=== PATIENT | male | born 1960 | race Caucasian/White ===

== ENCOUNTER 2025-07-30 10:41 | Inpatient (IN) | payer OTHER, SELFPAY ==
[2025-07-30] VITALS (11 sets, daily range): BP systolic 93–129; BP diastolic 61–86; PULSE 2–87; BMI 35.7; BMI 36.4
--- NOTE | 2025-07-30 08:15 | ED.GENMED ---
History of Present Illness
General
Chief Complaint: Change in Mental Status
Source: patient and ambulance crew
Exam Limitations: clinical condition
Time Seen by Provider: 07/30/25 08:14
Nursing documentation reviewed up to this point in time: agreed with
History of Present Illness
History of Present Illness:
Patient presents to ED from senior care secondary to mental status changes noted over the past 2 to 3 days. Per paramedics, patient was found to be mild hypoxic, requiring supplemental oxygen. Patient has been arousable to external stimuli, but
not following any verbal commands. Upon arrival, patient is somnolent, but arousable to physical stimuli, but does not offer any additional information at this time. Patient is found to be febrile. Patient does appear to have chronic Zamorano
catheter in place, with cloudy urine in Zamorano bag.
Review of Systems
Review of Systems
Allergies reviewed?: Yes
Unable to obtain full review of systems at this time due to: due to acuity
All Other Systems: Not applicable
Phy Exam
Physical Exam
Physical Exam:
Physical Exam
General: moderate distress, acutely ill. febrile.
Head: nc/at. eomi
Neck: supple. no jvd.
Heart: s1/s2 regular rate and rhythm
Lungs: mild respiratory distress. rhonchi bilaterally
Abdomen: normal bowel sounds. not tender.
Neuro: somnolent but responds to physical stimuli.
Skin: no rash
Extremities: LE nonpitting edema.
Sepsis
Sepsis Screening
Sepsis Assessment: Sepsis
Sepsis Screen
Sepsis Screen: Sepsis
Date: 08/01/25
Time: 21:14
Course
Orders/Labs/Results
Orders:
Orders
07/30/25
Electrocardiogram (*1) Stat
Reason for Study: Chest Pain
Comment: already done
07/30/25 08:13
Catheter [Zamorano Placement- Treatment] ONCE
Reason for insertion: Acute Retention
07/30/25 08:15
0.9% Sodium Chloride 1000 ml [Nss] 1,000 ml IV BOLUS
Acetaminophen [Tylenol/Feverall] 650 mg RECTAL NOW STA
07/30/25 08:16
COVID-19 Antigen Urgent
Source: Nasal Swab
Complete Blood Count/With Diff Urgent
Comprehensive Metabolic Panel Urgent
Lactic Acid Urgent
Magnesium Urgent
NT-proBNP Urgent
Osmolality, Random Urine Urgent
Date Specimen was Collected: 07/30/25
Time Specimen was Collected: 08:12
Comment: ADD ON
Troponin I Urgent
Urinalysis Reflex To Culture Urgent
Date Specimen was Collected: 07/30/25
Time Specimen was Collected: 08:12
Urine Microscopic Reflex Cult Urgent
Urine Sodium Urgent
Date Specimen was Collected: 07/30/25
Time Specimen was Collected: 08:12
Comment: ADD ON
Blood Culture Urgent
JUSTINE Source: Blood/Venous
Specimen Description:
Date Specimen was Collected: 07/30/25
Time Specimen was Collected: 08:12
Influenza A+B Rapid Molecular Urgent
JUSTINE Source: Nasal Swab
Specimen Description:
Date Specimen was Collected: 07/30/25
Time Specimen was Collected: 08:12
Urine Culture Urgent
JUSTINE Source: U
Specimen Description:
Date Specimen was Collected: 07/30/25
Time Specimen was Collected: 08:12
07/30/25 08:18
Acetaminophen 1000MG/100Ml [Ofirmev] 1,000 mg in 100 ml IV ONCE
Acetaminophen IV Indication:: ED Narcotic Naive Pt-ONCE
07/30/25 08:29
CR Chest Portable - 1 View Urgent
Comment:
Reason For Exam: hypoxia
Reason Study Needs to be Portable: Patient Unstable
07/30/25 09:05
0.9% Sodium Chloride 500 ml [Nss] 500 ml IV BOLUS
Ipratropium/Albuterol Sulfate [Duoneb] 3 ml INH R NOW STA
Piperacillin/Tazo 3.375 Gram [Zosyn] 3.375 gram in 50 ml IV NOW
07/30/25 09:22
Hepatitis B Surface Antigen Urgent
Comment: ADD ON
[place] Urgent
Blood Culture Urgent
JUSTINE Source: Blood/Venous
Specimen Description:
07/30/25 09:32
Kidney & Bladder US [US Renal With Bladder] Urgent
Comment:
Reason For Exam: MONET
07/30/25 09:[address] [CT Head W/o Iv Contrast] Urgent
Comment:
Reason For Exam: MS change
07/30/25 10:00
Dextrose 5%/Water 1000 ml [D5w] 1,000 ml IV 100 mls/hr
07/30/25 10:24
Admit/Transfer Patient As Directed
Co-Sign Provider:
Level of Care: Inpatient admission
Assign to:: Telemetry
Physician / Group: Elsy
Diagnosis: MS change
Reason for Telemetry: Other
Other Reason for Telemetry: electrolytes
Date to Stop Telemetry: 08/01/25
Time to Stop Telemetry: 11:00
Reason for Hospitalization: MS change , Monet
Expected length of stay greater than two midnights?: Yes
ELOS- Estimated Length of Stay in days: 3
I certify the patient meets the requirements for IP care: Yes
PRN Pain Medication Management As Directed
May give lesser potent ordered pain med per pt: Yes
preference::
Protocol:: Medication orders for pain may be administered in a
manner that supports deferring to patient preference
when the pt is:
- Requesting an ordered lesser potent pain medication.
Least to most potent pain medications are defined
as: acetaminophen < NSAID < tramadol < opioids
(morphine, oxycodone, hydromorphone).
- Requesting a lesser dose of the same medication IF
ORDERED.
- Requesting a less intrusive route of administration
if both routes are prescribed by the provider (PO <
IV).
07/30/25 10:25
Code Status As Directed
Resuscitation Status: Full Code
07/30/25 11:38
Activity As Directed
Activity Level: Encourage Progressive Amb
Notify MD As Directed
Notify physician if: Bridge Admission orders placed.
Notify attending physician:
-- upon arrival to unit
OR
-- when patient is identified as an ED hold
Pneumatic Compression Sleeves As Directed
Type: Knee high
Vital Signs As Directed
Frequency: Per unit guidelines
O2 Therapy [RESP] Routine
Titrate/Wean O2 to maintain O2 sat greater than (%): 92
DX Deep Vein Thrombosis Video Routine
07/30/25 16:51
BMP [Basic Metabolic Panel] Q4H
07/30/25 20:00
BMP [Basic Metabolic Panel] Q4H
08/01/25 11:00
DC Protocol for Telemetry ONCE
Abnormal Lab Results
07/30/25 07/30/25
08:16 09:22
WBC 13.0 H 10^3/uL
(4.8-10.8)
Hct 52.8 H %
(39.0-52.0)
MCV 101.5 H fL
(80.0-94.0)
MCHC 29.4 L g/dL
(33.0-37.0)
RDW 16.8 H %
(11.5-14.5)
Abs Immat Gran (auto) 0.1 H 10^3/uL
(0-0.05)
Absolute Neuts (auto) 10.0 H 10^3/uL
(1.4-6.5)
Absolute Monos (auto) 1.2 H 10^3/uL
(0.1-0.6)
Immature Gran % 0.7 H %
(0-0.5)
Neutrophils % 76.8 H %
(42.2-75.2)
Lymphocytes % 12.0 L %
(20.5-51.1)
Sodium 156 H mmol/L
(135-145)
Chloride 115 H mmol/L
(98-107)
BUN 70 H mg/dl
(9-20)
Creatinine 5.4 H* mg/dL
(0.7-1.3)
Glucose 148 H mg/dl
(70-99)
Calcium 10.7 H mg/dl
(8.4-10.2)
Magnesium 3.0 H mg/dl
(1.6-2.3)
Troponin I 0.051 H* ng/ml
Total Protein 8.5 H g/dl
(6.3-8.2)
Urine Ketones 1+ A
(Negative)
Ur Occult Blood Reflex 4+ A
(Negative)
Urine Nitrite (Reflex) Positive A
(Negative)
Urine Bilirubin 2+ A
(Negative)
Leukocyte Esterase Rfl 2+ A
(Negative)
Urine RBC 80-90 A /HPF
(0-2)
Urine Bacteria (Reflex) Moderate A
(Negative)
Urine Albumin (Reflex) 3+ A
(Neg - Trace)
[place] 2.1 H* mmol/L
(0.6-1.2)
07/30/25 08:16
07/30/25 08:16
Vital Signs
Initial and Last Documented VS:
Initial Vital Signs
Temp Pulse Resp BP Pulse Ox
102.9 F H 101 31 128/77 96
07/30/25 08:10 07/30/25 08:10 07/30/25 08:10 07/30/25 08:10 07/30/25 08:10
Last Documented Vital Signs
Temp Pulse Resp BP Pulse Ox
99.6 F 78 16 152/86 96
08/01/25 16:20 08/01/25 20:18 08/01/25 17:56 08/01/25 20:18 08/01/25 16:20
MDM/Problems Addressed
MDM/Problems Addressed:
History, exam, blood work, along with urinalysis, consistent with sepsis, likely secondary to UTI. No other focal source of infection noted, including chest x-ray. Patient's initial somnolence, improving during treatment with Tylenol and IV
fluids. Blood pressure remained stable. Antibiotics ordered. Blood culture pending. Urine culture pending.
Zamorano catheter exchanged in ED.
[place] level noted - hospitalist team aware.
Discussed with nurse practitioner at [facility] ([facility]) -creatinine level from 2 days ago was 1.93. During morning rounds, patient had been somnolent, but arousable and answering questions intermittently. Patient was recently
admitted at senior care from inpatient psychiatric facility, where he was treated for suicidal ideation. Patient does not have a history of chronic Zamorano catheter, but was placed at senior care secondary to urinary difficulties 2 days ago.
*Pulse Oximetry
Patient hypoxic: no
*Critical Care Note
Total Time (30-74mins, 75-104mins- exclusive of procedures): Not Applicable
ED Attending Note
-
Portions of this chart may have been created with voice recognition software.� Occasional wrong word or��sound alike� substitutions may have occurred due to the inherent limitations of voice recognition software.
Discharge Plan
Departure
Patient Disposition: Admit
Date of Disposition: 07/30/25
Time of Disposition: 09:33
Admit to: IMU
Presentation/result/management discussed w/ accepting MD/DO: Hospitalist
Discharge Problem:
Sepsis, Acute UTI
Interventions
Interventions:
*Risk Screen - Suicide Last Done: 07/30/25 12:00
*General Assessment Last Done: 07/30/25 08:10
*Neglect/Abuse Screening Last Done: 07/30/25 08:10
*ED- Fall Risk Assessment Last Done: 07/30/25 08:10
*ED COVID-19 Vaccine History Last Done: 07/30/25 12:00
*Nursing Disposition Last Done: 07/30/25 11:08
ED- Pulmonary Assessment Last Done: 07/30/25 08:10
ED-Psychological Assessment Last Done: 07/30/25 08:10
ED- Neurological Assessment Last Done: 07/30/25 08:10
ED- Cardiac Assessment Last Done: 07/30/25 08:10
ED Swallowing Screen Last Done: 07/30/25 08:10
Discharge Date and Time
Discharge Date/Time: 07/30/25 12:14
[2025-07-30 08:39] LABS: Hematocrit 52.8 % (39.0-52.0); Hemoglobin 15.5 g/dL (13.0-18.0); Mean Corp Hgb Conc. 29.4 g/dL (33.0-37.0); Mean Corpuscular Volume 101.5 fL (80.0-94.0); Nucleated Red Blood Cells % 0 % (-); Platelet Count 277 10^3/uL (130-400); Red Cell Dist. Width 16.8 % (11.5-14.5)
[2025-07-30] MEDS: OFIRMEV 100 IV (08:40)
[2025-07-30] MEDS: NSS 1000 IV (08:41)
[2025-07-30 08:52] LABS: Urine Character Cloudy (Clear)
[2025-07-30 09:00] LABS: COVID-19 Antigen Negative (Negative)
[2025-07-30 09:11] LABS: ALT (SGPT) 19 U/L (0-50); AST (SGOT) 23 U/L (17-59); Albumin 4.6 g/dl (3.5-5.0); Alkaline Phosphatase 64 U/L (38-126); Blood Urea Nitrogen 70 mg/dl (9-20); Calcium 10.7 mg/dl (8.4-10.2); Carbon Dioxide 27 mmol/L (22-30); Chloride 115 mmol/L (98-107); Estimated Creatinine Clearance 16 ml/min; Glucose 148 mg/dl (70-99); Magnesium 3.0 mg/dl (1.6-2.3); Potassium 4.8 mmol/L (3.5-5.1); Sodium 156 mmol/L (135-145); Total Protein 8.5 g/dl (6.3-8.2); eGFR 10.97
[2025-07-30 09:19] LABS: Troponin I 0.051 ng/ml
[2025-07-30] MEDS: NSS 500 IV (09:23)
[2025-07-30] MEDS: DUONEB 3 ML INH (09:23)
[2025-07-30] MEDS: ZOSYN 50 IV ×3 (09:23→23:01)
[2025-07-30 09:42] LABS: Urine Red Blood Cell 80-90 /HPF (0-2); Urine Squamous Cell 16-20 /LPF (Few)
[2025-07-30 10:03] LABS: Lithium 2.1 mmol/L (0.6-1.2)
--- NOTE | 2025-07-30 11:07 | EDRN ---
this RN called the receiving unit and notified them that paper report was going to be tubed up
[2025-07-30] MEDS: D5W 1000 IV (12:17)
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
[2025-07-30 14:24] LABS: Blood Urea Nitrogen 74 mg/dl (9-20); Calcium 9.5 mg/dl (8.4-10.2); Carbon Dioxide 26 mmol/L (22-30); Chloride 116 mmol/L (98-107); Estimated Creatinine Clearance 17 ml/min; Glucose 171 mg/dl (70-99); Potassium 4.4 mmol/L (3.5-5.1); Sodium 154 mmol/L (135-145); eGFR 11.48
--- NOTE | 2025-07-30 14:58 | W.PN.UPDATE ---
Update Note
Progress Note Update
Seen and examined the patient. Agree with the plan set forth by the resident. See changes in my documentation
Late documentation- See in the morning.
65-year-old man with fever and mental status change for the past 2 to 3 days. He was also found to be hypoxic. Patient has a chronic Zamorano catheter with cloudy urine. He was living in a 'flop house'. Then admitted Jul 16 [facility] came to current [place].
He was at [facility]. Sister hasn't seen him or talked to him for months.
Chest [id number] elevation of the right hemidiaphragm with minimal basilar atelectasis. No focal airspace disease or pleural effusion.
Pt arousable. Says his name
No neck stiffness
CVS: S1-S2 normal
Chest: CTA B/L
Abdomen: Soft, NT / Bowel sounds present, Zamorano with high colored urine
Extremities: No edema
DIRECTOR EDUCATION: No facial droop, no neck stiffness, patient drowsy arousable states name but falls back to sleep
EKG-ST, LAD,Prolonged QTC
# Sepsis
Source unclear possible urine
Was treated with ciprofloxacin as outpatient
Blood cultures and urine cultures drawn
Start antibiotics-started on Zosyn in the ER. Continue
# TME
Possibly secondary to hypernatremia and DEANA, elevated lithium levels
CT head without any acute changes
Check EEG
Speech evaluation. Aspiration precautions
# Hyponatremia with sodium of 156 on arrival
Unclear if this is acute or chronic free water deficit
Free water deficit about 6 L
Correct 1 to 2 mmol/L/h
Follow BMP every 4 hours to avoid rapid correction/seizures
Start D5W 100 ml/hr and follow BMP
Possibility of DI secondary to lithium needs to be ruled out.
Check serum and urine osmolality, urine sodium
# [place] toxicity. Hold off on lithium
# Hypercalcemia-likely secondary dehydration. Follow-up with hydration
# Slightly elevated troponin-likely secondary to renal failure-follow. EKG as above
# Hyperlipidemia-Hold statin
# Hypertension-Hold metoprolol
# Hypothyroidism-continue levothyroxine
# Mental health disorder-on Effexor 150 mg OD, trazodone 50 mg at bedtime, Seroquel 500 mg at bedtime, [place] 600 HS, Lamictal 100 mg twice daily as outpatient. Psyche eval. Hold all medicines as n.p.o.
# Prostate disease-seem to be on Flomax and also has a Zamorano catheter
# DVT prophylaxis-JESSA
# CODE STATUS- Full CODE
Spoke to sister she states that she has healthcare proxy and lives in [place] has not seen the patient for several months. She wants them to be full code will look for advance directives.
DIRECTOR OF REIMBURSEMENT @ [facility]). [phone]
Time spent more than 75 minutes
Part of this note was created using voice recognition system. Occasional wrong word or��sound alike� substitutions may have inadvertently occurred due to the inherent limitations of voice recognition software. If noted kindly bring it to my
attention for correction.
--- NOTE | 2025-07-30 15:49 | EEG.RPT ---
Electroencephalogram Report
Recording
Date of EE07/30/25
Type of EEG: Routine
Length of EEG recordin minutes
Done with Video Recording: Yes
Patient Status: Inpatient
Recording Conditions: Awake and Drowsy
Hyperventilation Performed: No
Photic Stimulation Performed: Yes
Report
LESS THAN 1 HOUR REPORT
LESS THAN 1 HOUR EEG INTERPRETATION:
Mild to moderately abnormal EEG for age mild�moderate diffuse bihemispheric slowing
CLINICAL CORRELATION:
This study was suggestive of diffuse cortical dysfunction without focal abnormality. Body movements and twitching noted by the cooling tower technician were not associated with epileptiform activity.
No seizures were recorded. If concerns remain regarding seizures, consideration for prolonged EEG recording may be given.
Clinical correlation is advised.
METHODS:
A 21 channel digitized electroencephalogram (EEG) was performed in the Clinical Neurophysiology Laboratory. The 10/20 international system of electrode placement was used with ECG and lateral/vertical eye movements recorded. The XYZE quantitative
measurement system was utilized.
QUALITY OF STUDY:
Good
ELECTROENCEPHALOGRAPHER IMPRESSION(S):
Background
Medium amplitude fairly to poorly organized anterior-posterior voltage gradient of rarely demonstrated theta, typically delta maximal activity
There were no significant asymmetries of background activity noted.
Sleep
Drowsiness present
Photic Stimulation
Failed to activate the record
ECG
Normal sinus rhythm
--- NOTE | 2025-07-30 16:34 | W.CON.NEPH ---
Consultation
-
Date/Time Consultation Requested: 07/30/2025 2:40 PM
Date/Time Consultation Performed: 07/30/2025 4:30 PM
Requesting Provider: Dr. Chin
Performing Provider: Dr. Gonzales
Reason for Consultation: DEANA
Medical History
-
Chief Complaint: Confusion
History of Present Illness:
This is a 65-year-old gentleman who resides at [facility]. Records are currently unavailable. He has a psychiatric disorder type currently unknown but is on venlafaxine, Seroquel, lithium. Duration of these drugs is also unknown
currently. Reportedly he also has recent history of suicidal ideation. He was recently at [facility]. [facility] also [facility]. Reportedly he has hyperlipidemia on statin therapy as well as chronic Zamorano catheter.
He has a sister who lives in [place] who has not talked to them for at least a year. He has a friend Yash who had been fairly close with him though he has not talked to them for at least 3 months time. He was sent to the emergency room through EMS
from [facility] because of mental status change and fever. This has apparently been occurring for a few days. Reportedly creatinine 2 days ago was 1.93. In the emergency room his creatinine was 5.4 with a lithium level of 2.1. He had slurred
speech as well as lethargy. He was given 2 L of IV fluids. He was also noted to have a sodium level of 156. He was febrile to 102.9. His Zamorano catheter was exchanged in the emergency room. We are asked to assist with management of his multiple
issues.
Past Medical History
Psychiatric disorder
Chronic Zamorano catheter
Hypertension
Reflux
Asthma
Hypothyroidism
Social History
Unknown
Family History
Family History: Not Pertinent
Allergies / Home Medications
Allergy/AdvReac Type Severity Reaction Status Date / Time
No Known Allergies Allergy Unverified 07/30/25 08:40
�Medication �Instructions �Recorded �Confirmed �Type
acetaminophen 325 mg tablet 650 mg PO Q6HPRN PRN MILD PAIN 07/30/25 07/30/25 History
(Tylenol)
aspirin 81 mg tablet,delayed 81 mg PO DAILY 07/30/25 07/30/25 History
release
atorvastatin 40 mg tablet (Lipitor) 40 mg PO HS 07/30/25 07/30/25 History
bisacodyl 10 mg rectal suppository 10 mg MO DAILYPRN PRN IF NO BM 07/30/25 07/30/25 History
(Dulcolax (bisacodyl)) AFTR MOM
ciprofloxacin HCl 500 mg tablet 500 mg PO BID 07/30/25 07/30/25 History
(Cipro)
docusate sodium 100 mg capsule 100 mg PO BID 07/30/25 07/30/25 History
(Colace)
ferrous sulfate 325 mg (65 mg 325 mg PO DAILY 07/30/25 07/30/25 History
iron) tablet
ipratropium bromide 17 2 puff inhalation BID 07/30/25 07/30/25 History
mcg/actuation HFA aerosol inhaler
lamotrigine 100 mg tablet 100 mg PO BID 07/30/25 07/30/25 History
levothyroxine 50 mcg tablet 50 mcg PO DAILY 07/30/25 07/30/25 History
(Synthroid)
lithium carbonate 300 mg capsule 600 mg PO HS 07/30/25 07/30/25 History
magnesium hydroxide 400 mg/5 mL 2,400 mg PO [id number] PRN 07/30/25 07/30/25 History
oral suspension (Milk of Magnesia) CONSTIPATION
melatonin 3 mg tablet 3 mg PO HS 07/30/25 07/30/25 History
metoprolol tartrate 25 mg tablet 25 mg PO BID 07/30/25 07/30/25 History
montelukast 10 mg tablet 10 mg PO HS 07/30/25 07/30/25 History
(Singulair)
pantoprazole 40 mg tablet,delayed 40 mg PO DAILY 07/30/25 07/30/25 History
release (Protonix)
quetiapine 100 mg tablet (Seroquel) 500 mg PO HS 07/30/25 07/30/25 History
sennosides 8.6 mg tablet (senna) 8.6 mg PO HS 07/30/25 07/30/25 History
sodium phosphates 19 gram-7 118 ml MO DAILYPRN PRN IF NO BM 07/30/25 07/30/25 History
gram/118 mL enema (Fleet Enema) AFTR DULCOLAX
tamsulosin 0.4 mg capsule (Flomax) 0.4 mg PO QPM 07/30/25 07/30/25 History
trazodone 50 mg tablet 50 mg PO HS 07/30/25 07/30/25 History
venlafaxine 150 mg 150 mg PO DAILY 07/30/25 07/30/25 History
capsule,extended release 24 hr
(Effexor XR)
Review of Systems
-
No clear complaints of pain though speech was slurred and incomprehensible
Physical Exam
Vital Signs
Vital Signs
Temp Pulse Resp BP Pulse Ox
98.3 F 89 22 112/72 96
07/30/25 16:20 07/30/25 16:20 07/30/25 16:20 07/30/25 16:20 07/30/25 16:20
Lab Results
WBC 13.0 10^3/uL (4.8-10.8) H 07/30/25 08:16
RBC 5.20 10^6/uL (4.70-6.10) 07/30/25 08:16
Hgb 15.5 g/dL (13.0-18.0) 07/30/25 08:16
Hct 52.8 % (39.0-52.0) H 07/30/25 08:16
Plt Count 277 10^3/uL (130-400) 07/30/25 08:16
eGFR 11.48 07/30/25 13:54
Npb-T-Klotwozyrgo Pept 72.2 pg/ml 07/30/25 08:16
Albumin 4.6 g/dl (3.5-5.0) 07/30/25 08:16
CT head 07/30/2025 no acute disease
Renal ultrasound 07/30/2025 right kidney 11.5 cm left kidney 11.5 cm no hydronephrosis
Physical Exam
Patient is awake. Difficult to determine orientation. He follows simple commands though with weakness. But dry pupils are equal round and reactive to light, extraocular movements are intact, sclera were anicteric. Hearing was normal, ears and
nose are intact. Oropharynx was clear but dry. Neck was supple with trachea midline and no thyromegaly. Heart was regular rate and rhythm without rubs. Lower extremities without edema. Lungs were clear to auscultation bilaterally and with normal
excursion. Abdomen was soft, nontender, with normal active bowel sounds, and no hepatosplenomegaly. Skin was without rash and with normal turgor. Wounds were rigid with cogwheeling.
Data Reviewed
-
Radiology: Image Personally Visualized and interpreted (Chest x-ray 07/30/2025 by my reading elevated right hemidiaphragm)
Ultrasound: Report Reviewed by me
Medical Tests (Nuc Med, Echo etc): Image Personally Visualized and interpreted (EKG 07/30/2025 by my reading sinus tachycardia left axis deviation nonspecific ST abnormalities prolonged QT)
Labs: Labs Reviewed by me
Old Records: Requested
Assessment/Plan
-
Assessment
[place] toxicity
obtundation
DEANA
Hypernatremia
Hypertension
Hypothyroidism
Muscle rigidity, hypotonicity
Plan
He will require dialysis
It is highly likely that he has lithium toxicity but especially that it cannot be excluded
Will need volume, use half-normal saline to also allow for hypernatremia
Serial lithium levels
Follow BMP
He is clearly volume depleted
I spoken with his sister in [place] as well as his friend Yash. By both the reports at baseline he is conversant and cognizant.
Critical care time spent 45 minutes
[2025-07-30] MEDS: 0.45%NACL 1000 IV ×2 (17:01→23:00)
[2025-07-30 17:13] LABS: Lithium 0.9 mmol/L (0.6-1.2)
[2025-07-30 17:29] LABS: Blood Urea Nitrogen 64 mg/dl (9-20); Calcium 8.0 mg/dl (8.4-10.2); Carbon Dioxide 22 mmol/L (22-30); Chloride 98 mmol/L (98-107); Estimated Creatinine Clearance 24 ml/min; Glucose 352 mg/dl (70-99); Potassium 3.6 mmol/L (3.5-5.1); Sodium 148 mmol/L (135-145); eGFR 17.27
[2025-07-30 17:37] LABS: Troponin I < 0.012 ng/ml
--- NOTE | 2025-07-30 17:44 | PTCARENOTE ---
Report given to Yi in IMU. Pt to go directly to room 3344 from IR after HD cath placement.
--- NOTE | 2025-07-30 18:15 | PTCARENOTE ---
Received patient by stretcher from ED. HD cath CDI. Patient lethargic, garbled speech, extremely dry mouth, twitching. Oriented to self, PERRLA@2, patient following some commands. 4L NC, 95%. Patient seen holding breath and desatting to 88% until
prompted to breathe, respiratory notified and bringing bipap. Mouth care done. VSS. NSR on monitor. Bed alarm placed for safety. Dr. Gonzales at bedside, HD being held. Will closely monitor.
--- NOTE | 2025-07-30 18:30 | W.PN.UPDATE ---
Update Note
Progress Note Update
returned to see patient. temp HD CVC in. BP stable. on IVF 1/2NS 150ml/hr. UOP good and is clearer than before.
Labs with Li 0.9, Cr down to 3.2 Na down to 148.
still with apparent myoclonus. tries to answer questions appropriately, but speech is garbled. also tries to follow simple commands but no muscle strength.
will hold on HD at this time.
continue IVF
if 1999 labs are improving, then his obtundation would not be from [place]/hypernatremia. I suspect WBC will come down with the volume resuscitation too. awaiting cultures and holding psychotropic meds
[2025-07-30 18:55] LABS: Hepatitis B Surface Antigen Negative (Negative)
[2025-07-30] MEDS: ATROVENT NEBULES 0.5 MG INH (19:33)
[2025-07-30] MEDS: DESENEX/MITRAZOL/ZEASORB 1 APPLIC TOPICAL (20:05)
[2025-07-30 20:14] LABS: Hematocrit 44.2 % (39.0-52.0); Hemoglobin 13.1 g/dL (13.0-18.0); Mean Corp Hgb Conc. 29.6 g/dL (33.0-37.0); Mean Corpuscular Volume 101.1 fL (80.0-94.0); Platelet Count 220 10^3/uL (130-400); Red Cell Dist. Width 16.8 % (11.5-14.5)
[2025-07-30 20:43] LABS: Blood Urea Nitrogen 68 mg/dl (9-20); Calcium 9.1 mg/dl (8.4-10.2); Carbon Dioxide 24 mmol/L (22-30); Chloride 115 mmol/L (98-107); Estimated Creatinine Clearance 23 ml/min; Glucose 130 mg/dl (70-99); Magnesium 2.7 mg/dl (1.6-2.3); Potassium 4.0 mmol/L (3.5-5.1); Sodium 149 mmol/L (135-145); eGFR 16.21
--- NOTE | 2025-07-30 21:30 | PTCARENOTE ---
1999 lab results back: Na+ 149 was 148. Cl 115 was 98, Mg 2.7 - first drawn, Bun/Cr 68/3.9 was 64/3.7. All slightly up from previous. Urine is yellow sent to lab as ordered urine Na+ 21 was 40, Osm[place] 572 was 392. With agitation, upper extremities
tremulous reaching out into the air for something not there. Moaning when attempting to arouse. Dr Gonzales TT'd and made aware of above. Labs ordered for 2329.
[2025-07-30] MEDS: HEPARIN 5000 UNITS SC (23:00)
[2025-07-30 23:41] LABS: ALT (SGPT) 16 U/L (0-50); AST (SGOT) 21 U/L (17-59); Albumin 3.9 g/dl (3.5-5.0); Alkaline Phosphatase 56 U/L (38-126); Blood Urea Nitrogen 72 mg/dl (9-20); Calcium 10.0 mg/dl (8.4-10.2); Carbon Dioxide 26 mmol/L (22-30); Chloride 118 mmol/L (98-107); Estimated Creatinine Clearance 24 ml/min; Glucose 131 mg/dl (70-99); Lithium 1.8 mmol/L (0.6-1.2); Potassium 4.2 mmol/L (3.5-5.1); Sodium 153 mmol/L (135-145); Total Protein 7.3 g/dl (6.3-8.2); eGFR 17.27
[2025-07-31] VITALS (18 sets, daily range): BP systolic 103–145; BP diastolic 58–103; PULSE 2–87; O2SAT 99; BMI 36.2
[2025-07-31] MEDS: SODIUM CHLORIDE 1009.625 MEQ IV ×2 (00:12→07:47)
--- NOTE | 2025-07-31 00:17 | PTCARENOTE ---
2330 lab results: Na+ 153, Cl 118, Bun/Cr 72/3.[address] [place] [address] Gonzales TT'd and made aware. Order entered for change in IVF's. Sterile water w/NaCl 38.5meq at 150ml/hr currently infusing. Pt currently resting comfortably on right side. BIPAP on at
18/16/2L POX holding 90's. Labs in for am. Will continue to monitor.
[2025-07-31 03:49] LABS: Hematocrit 40.5 % (39.0-52.0); Hemoglobin 12.0 g/dL (13.0-18.0); Mean Corp Hgb Conc. 29.6 g/dL (33.0-37.0); Mean Corpuscular Volume 101.8 fL (80.0-94.0); Nucleated Red Blood Cells % 0 % (-); Platelet Count 205 10^3/uL (130-400); Red Cell Dist. Width 16.7 % (11.5-14.5)
[2025-07-31 04:12] LABS: ALT (SGPT) 14 U/L (0-50); AST (SGOT) 34 U/L (17-59); Albumin 3.4 g/dl (3.5-5.0); Alkaline Phosphatase < 20 U/L (38-126); Blood Urea Nitrogen 62 mg/dl (9-20); Calcium 8.4 mg/dl (8.4-10.2); Carbon Dioxide 24 mmol/L (22-30); Chloride 109 mmol/L (98-107); Estimated Creatinine Clearance 32 ml/min; Glucose 112 mg/dl (70-99); Lithium 1.7 mmol/L (0.6-1.2); Magnesium 2.5 mg/dl (1.6-2.3); Potassium 4.5 mmol/L (3.5-5.1); Sodium 138 mmol/L (135-145); Total Protein 6.8 g/dl (6.3-8.2); eGFR 24.13
--- NOTE | 2025-07-31 04:49 | PTCARENOTE ---
AM labs results: Na+ 138, Cl 109, [place] 1.7, Bun/Cr 62/2.8. Zamorano output for shift 600mls yellow urine. Dr Gonzales TT'd but no response. Cintia BACH TT'd and updated on night with pt, lab values, labs ordered and IVF changes throughout shift. Order
entered to decrease currently IVF's to 75ml/hr. IVF's currently infusing at 75ml/hr. Pt continues on BIPAP sleeping throughout shift. VSS. Afebrile. Will continue to monitor.
--- NOTE | 2025-07-31 06:34 | W.PN.UPDATE ---
Update Note
Progress Note Update
Rapid correction of Na 153-->138 over 4hrs. Decreased 1/4 NSS rate from 150cc/hr to 75cc/hr.
[2025-07-31] MEDS: PROTONIX IV 40 MG IV (07:44)
[2025-07-31] MEDS: NSS (PRESERVATIVE FREE) 10 ML IV (07:44)
[2025-07-31] MEDS: HEPARIN 5000 UNITS SC ×3 (07:44→23:38)
[2025-07-31] MEDS: DESENEX/MITRAZOL/ZEASORB 1 APPLIC TOPICAL ×2 (07:44→20:00)
[2025-07-31] MEDS: ZOSYN 50 IV ×4 (07:44→23:38)
[2025-07-31] MEDS: ATROVENT NEBULES 0.5 MG INH (07:49)
--- NOTE | 2025-07-31 10:01 | W.PN.NEPH.PH ---
Today's Communication / Plan
-
IVF
Assessment/Plan
-
Assessment
[place] toxicity
obtundation
DEANA
Hypernatremia
Hypertension
Hypothyroidism
Muscle rigidity, hypotonicity
Plan
change to NSS IVF reduce rate
follow lithium later today
no dialysis indicated at this time
maintain tejeda until [place] level < 1
ok to use HD CVC for labs at this time
-
-
Date of Service: July 31, 2025
CC / HPI / ROS
-
Chief Complaint:
DEANA
History of Present Illness:
DEANA/Cr down to 2.8
Na down to 138
Li 1.7
BP stable
nonoliguric
Review of Systems:
more alert, speech clearer
strength improving
still with myoclonus
Labs
-
Labs:
eGFR Cancelled 07/31/25 07:58
Tet-X-Hhfpibukqji Pept 72.2 pg/ml 07/30/25 08:16
Physical Exam
-
Vital Signs:
Vital Signs
Temp Pulse Resp BP Pulse Ox
100.0 F 88 21 136/92 100
07/31/25 07:52 07/31/25 08:30 07/31/25 08:30 07/31/25 08:22 07/31/25 08:30
Cardiovascular:: Regular rate and rhythm
Respiratory:: Bilateral: Coarse
Lung Excursion:: Normal
Abdomen:: Nontender and Soft
Bowel Sounds:: Normal
Extremity Edema:: None: Bilateral:
--- NOTE | 2025-07-31 10:07 | W.PN.UPDATE ---
Update Note
Progress Note Update
I saw and evaluated the patient. I reviewed the resident�s note and agree with findings and plan as documented in the resident�s note.
Pt does not offer acute complaints.
Gen: NAD, AAOx1
Eyes: EOMI, PERRLA, no scleral icterus.
Neck: supple.
CV: RRR, +S1/S2, no m/r/g.
Resp: CTAB, no rales, wheezes, or rhonchi.
Abd: +BS, soft, NT, ND
Skin: No rashes.
Neuro: CN 2-12 intact, non-focal.
Psych: Normal mood and affect.
07/30/25 08:16 Urine Urine Culture - Final
NO GROWTH
07/30/25 09:22 Blood/Venous Blood Culture - Preliminary
No Growth in 24 hours- Final report to follow
07/30/25 08:16 Blood/Venous Blood Culture - Preliminary
No Growth in 24 hours- Final report to follow
07/30/25 08:16 Nasal Swab Influenza Types A & B (JAYDE) - Final
Negative for Influenza A & B, NAAT
Negative results must be combined with clinical observations
and patient history.
Nucleic Acid Amplification test (NAAT)performed on the
[employer] ID NOW platform.
CXR: moderate elevation of the right hemidiaphragm with minimal basilar atelectasis. No focal airspace disease or pleural effusion.
Fever:
-UCx NG and UTI has been ruled out
-Flu/COVID NEG
-doubt infection at this point. Suspect fever was due to lithium toxicity.
-cont Zosyn until BCxs NG x 48 hours
Acute toxic encephalopathy due to lithium toxicity and acute metabolic encephalopathy due to DEANA:
-was obtunded on admission, now awake and alert
-holding [place], psych following
-Cr improving with IVFs
-renal following
-hypernatremia resolved with hypotonic IVFs
Other problems:
Hypercalcemia, resolved
Troponin of 0.051 is of no clinical significance that was due to acute kidney injury
HLD: statin on hold
Essential HTN: BB on hold
Hypothyroidism: cont levothyroxine
Mental health disorder: all home psychotropic medications on hold, psych following
Prostate disease
FULL/heparin
[2025-07-31] MEDS: NSS 1000 IV (10:16)
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
--- NOTE | 2025-07-31 11:27 | CM ---
digital account manager reviewed patient's chart and met with patient and patient was admitted from [facility] with a change in mental status, patient has an extensive past medical history depressive d/o, suicide ideation, Bipolar 1, and IVDA.
Patient with sleep apnea and is on BIPAP machine. Patient was transferred to [facility] from [facility] psychiatry facility.
Plan: Patient to return to [facility] when stable.
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
[2025-07-31 12:56] LABS: Hematocrit 45.2 % (39.0-52.0); Hemoglobin 13.2 g/dL (13.0-18.0); Mean Corp Hgb Conc. 29.2 g/dL (33.0-37.0); Mean Corpuscular Volume 101.3 fL (80.0-94.0); Nucleated Red Blood Cells % 0 % (-); Platelet Count 212 10^3/uL (130-400); Red Cell Dist. Width 16.6 % (11.5-14.5)
[2025-07-31 13:18] LABS: ALT (SGPT) 15 U/L (0-50); AST (SGOT) 36 U/L (17-59); Albumin 4.0 g/dl (3.5-5.0); Alkaline Phosphatase 50 U/L (38-126); Blood Urea Nitrogen 64 mg/dl (9-20); Calcium 9.4 mg/dl (8.4-10.2); Carbon Dioxide 27 mmol/L (22-30); Chloride 118 mmol/L (98-107); Estimated Creatinine Clearance 31 ml/min; Glucose 115 mg/dl (70-99); Magnesium 2.7 mg/dl (1.6-2.3); Potassium 4.7 mmol/L (3.5-5.1); Sodium 153 mmol/L (135-145); Total Protein 7.3 g/dl (6.3-8.2); eGFR 23.13
[2025-07-31] MEDS: MYCOSTATIN ORAL SUSPENSION 5 ML PO ×3 (13:24→20:02)
--- NOTE | 2025-07-31 15:28 | PTOTSP ---
Speech-Language Therapy Evaluation
Pt seen in room for bedside swallow assessment with HOB elevated. Pt confused and with disorganized speech with no real intent. Pt unable to self-feed due to tremor in the upper extremities. Pt managed trials of puree solids and thins liquids (straw
and open cup) with no overt s/sx of aspiration. Oral phase characterized by discoordinated lingual movements, mild oral residue dispersed throughout oral cavity, and with regular solids- poor oral manipulation. Pharyngeal phase characterized by
multiple swallows, no overt s/sx of aspiration, no breath changes or wet vocal quality.
Recommendations:�
1. IDDSI Level 4 puree and Mildly thick liquids with 1:1 assistance for feeding if patient is alert
2. Meds as best tolerated
3. Standard aspiration precautions
4. CYLINDER INSPECTOR AND TESTER to follow
[2025-07-31 16:31] LABS: Lithium 1.4 mmol/L (0.6-1.2)
[2025-07-31] MEDS: D5W 1000 IV (17:17)
[2025-07-31] MEDS: FLOMAX 0.4 MG PO (17:17)
--- NOTE | 2025-07-31 17:33 | PTCARENOTE ---
Patient AOx1 (self). Much more awake at the end of shift. Full body tremors. NSR with prolonged QT. On RA with Spo2 greater than 92%. Zamorano draining yellow urine with sediment. Tolerating pureed diet. IVF running per order. Bed alarm on and audible.
Bed in lowest position, bed of wheels locked, and call hogue within reach.
[2025-07-31] MEDS: ATROVENT NEBULES INH (19:40)
[2025-07-31] MEDS: COLACE 100 MG PO (19:58)
[2025-07-31] MEDS: LOPRESSOR 25 MG PO (19:58)
[2025-07-31] MEDS: MELATONIN 3 MG PO (20:01)
[2025-07-31] MEDS: LIPITOR 40 MG PO (20:01)
[2025-07-31] MEDS: SENOKOT 8.6 MG PO (20:02)
[2025-07-31] MEDS: SINGULAIR 10 MG PO (20:02)
[2025-08-01] VITALS (13 sets, daily range): BP systolic 102–157; BP diastolic 63–106; PULSE 3–80; BMI 35.7
[2025-08-01 00:14] LABS: Blood Urea Nitrogen 51 mg/dl (9-20); Calcium 10.2 mg/dl (8.4-10.2); Carbon Dioxide 29 mmol/L (22-30); Chloride 118 mmol/L (98-107); Estimated Creatinine Clearance 47 ml/min; Glucose 166 mg/dl (70-99); Potassium 3.9 mmol/L (3.5-5.1); Sodium 152 mmol/L (135-145); eGFR 38.42
[2025-08-01 04:09] LABS: Hematocrit 42.2 % (39.0-52.0); Hemoglobin 12.7 g/dL (13.0-18.0); Mean Corp Hgb Conc. 30.1 g/dL (33.0-37.0); Mean Corpuscular Volume 100.5 fL (80.0-94.0); Nucleated Red Blood Cells % 0 % (-); Platelet Count 219 10^3/uL (130-400); Red Cell Dist. Width 16.3 % (11.5-14.5)
[2025-08-01] MEDS: TIGAN 200 MG IM (04:18)
[2025-08-01 04:31] LABS: Blood Urea Nitrogen 48 mg/dl (9-20); Calcium 10.1 mg/dl (8.4-10.2); Carbon Dioxide 28 mmol/L (22-30); Chloride 118 mmol/L (98-107); Estimated Creatinine Clearance 47 ml/min; Glucose 153 mg/dl (70-99); Lithium 1.2 mmol/L (0.6-1.2); Potassium 4.0 mmol/L (3.5-5.1); Sodium 154 mmol/L (135-145); eGFR 38.42
--- NOTE | 2025-08-01 04:56 | W.PN.UPDATE ---
Addendum entered and electronically signed by MIKALA Wilson 08/01/25 06:41:
AM labs: Na 154, TT to Nephrology, Dr. Gonzales. Increase rate of D5W to 150 mls/hr. Orders updated.
Original Note:
Update Note
Progress Note Update
~ 4 am Pt vomited in and around his Bipap mask, estimated 300 mls of yellow/orange emesis. Patient c/o nausea, ordered Tigan 200 IM x 1. Patient hygiene performed by nursing staff. HD catheter dressing partially off and covered w/emesis, dressing
changed w/sterile dressing pack and bio patch applied. AM labs drawn. PCXR ordered, report pending. Pt is currently on Zosyn 2.25 gm, initially covered for aspiration.
--- NOTE | 2025-08-01 05:04 | PTCARENOTE ---
AM labs drawn and sent to the lab. Upon returning to room this RN observed emesis in pt's BIPAP mask and on right side of pt's head, linens and floor. BIPAP mask removed from pt by this RN. POX at RA 93-97%. Approx 300 mls yellow/orange emesis
mostly liquid. Pt asked if he still feels sick and stated 'yes.' Viki BACH TT'd and made aware of above. On floor to assess pt. Stat order entered for IM Tigan and given. RT TT'd and made aware of above as well. Lung sounds clear. Pt with new dry
cough. Stat CXR ordered and obtained. Pt currently on IV Zosyn. Temp 98.1 axillary. Rest of VSS. Pt received CHG bath, all linens changed. Viki BACH changed out HD cath dressing. Zamorano emptied for 950mls yellow w/sediment urine. Currently on RA pox
97%. Pt remains confused and forgetful. Bed alarm remains on and working. Call hogue within reach. Will continue to monitor
[2025-08-01] MEDS: D5W 1000 IV ×3 (05:24→20:05)
[2025-08-01] MEDS: ZOSYN 50 IV (05:25)
[2025-08-01] MEDS: SYNTHROID PO (06:05)
[2025-08-01] MEDS: ATROVENT NEBULES 0.5 MG INH ×2 (07:29→17:53)
[2025-08-01] MEDS: HEPARIN 5000 UNITS SC ×3 (07:46→23:07)
[2025-08-01] MEDS: ASPIR LOW (ENTERIC COATED) 81 MG PO (07:46)
[2025-08-01] MEDS: PROTONIX 40 MG PO (07:46)
[2025-08-01] MEDS: DESENEX/MITRAZOL/ZEASORB 1 APPLIC TOPICAL ×2 (07:46→20:20)
[2025-08-01] MEDS: MYCOSTATIN ORAL SUSPENSION 5 ML PO ×4 (07:46→20:13)
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
[2025-08-01] MEDS: LOPRESSOR 25 MG PO ×2 (07:47→20:18)
[2025-08-01] MEDS: COLACE 100 MG PO ×2 (07:48→20:11)
--- NOTE | 2025-08-01 08:00 | W.PN.UPDATE ---
Update Note
Progress Note Update
I saw and evaluated the patient. I reviewed the resident�s note and agree with findings and plan as documented in the resident�s note.
Pt does not offer acute complaints.
Gen: NAD, Awake and alert but not oriented
Eyes: EOMI, PERRLA, no scleral icterus.
Neck: supple.
CV: remains RRR, +S1/S2, no m/r/g.
Resp: CTAB, no rales, wheezes, or rhonchi.
Abd: +BS, soft, NT, ND
Skin: No rashes.
Neuro: CN 2-12 intact, non-focal, resting tremor.
Psych: calm
07/30/25 08:16 Urine Urine Culture - Final
NO GROWTH
07/30/25 09:22 Blood/Venous Blood Culture - Preliminary
No Growth in 24 hours- Final report to follow
07/30/25 08:16 Blood/Venous Blood Culture - Preliminary
No Growth in 24 hours- Final report to follow
07/30/25 08:16 Nasal Swab Influenza Types A & B (JAYDE) - Final
Negative for Influenza A & B, NAAT
Negative results must be combined with clinical observations
and patient history.
Nucleic Acid Amplification test (NAAT)performed on the
[employer] ID NOW platform.
CXR on admission: moderate elevation of the right hemidiaphragm with minimal basilar atelectasis. No focal airspace disease or pleural effusion.
CXR: No acute disease of the chest.
Fever:
-UCx NG and UTI has been ruled out
-Flu/COVID NEG
-doubt infection at this point. Suspect fever was due to lithium toxicity.
-cont Zosyn until BCxs NG x 48 hours
Acute toxic encephalopathy due to lithium toxicity and acute metabolic encephalopathy due to DEANA:
-was obtunded on admission, now awake and alert
-holding [place], psych following
-Cr improving with IVFs
-renal following
-cont D5W for hypernatremia
Other problems:
Hypercalcemia, resolved
Troponin of 0.051 is of no clinical significance and was due to acute kidney injury
HLD: statin on hold
Essential HTN: BB on hold
Hypothyroidism: cont levothyroxine
Mental health disorder: all home psychotropic medications on hold, psych following
Prostate disease
Obesity due to excess calories
FULL/heparin
--- NOTE | 2025-08-01 11:04 | W.PN.NEPH.PH ---
Today's Communication / Plan
-
increase IVF
Assessment/Plan
-
Assessment
[place] toxicity
obtundation
DEANA
Hypernatremia
Hypertension
Hypothyroidism
Muscle rigidity, hypotonicity
Plan
Free water deficit ~5L, and Na tonia on D5W @75ml/hr
increase rate to 150ml/hr
follow BMP BID
follow Li daily
can d/c HD CVC unless needed for IVF
-
-
Date of Service: August 01, 2025
CC / HPI / ROS
-
Chief Complaint:
DEANA
History of Present Illness:
DEANA/Cr down to 1.9
Na up at 154
Li 1.2
BP stable
nonoliguric
Review of Systems:
more alert, speech clearer
train of thought still off
strength improving
still with myoclonus
Labs
-
Labs:
WBC 10.3 10^3/uL (4.8-10.8) 08/01/25 03:50
RBC 4.20 10^6/uL (4.70-6.10) L 08/01/25 03:50
Hgb 12.7 g/dL (13.0-18.0) L 08/01/25 03:50
Hct 42.2 % (39.0-52.0) 08/01/25 03:50
Plt Count 219 10^3/uL (130-400) 08/01/25 03:50
Sodium 154 mmol/L (135-145) H 08/01/25 03:50
Potassium 4.0 mmol/L (3.5-5.1) 08/01/25 03:50
Chloride 118 mmol/L (98-107) H 08/01/25 03:50
Carbon Dioxide 28 mmol/L (22-30) 08/01/25 03:50
BUN 48 mg/dl (9-20) H 08/01/25 03:50
Creatinine 1.9 mg/dL (0.7-1.3) H 08/01/25 03:50
eGFR 38.42 08/01/25 03:50
Glucose 153 mg/dl (70-99) H 08/01/25 03:50
Calcium 10.1 mg/dl (8.4-10.2) 08/01/25 03:50
Phosphorus 4.0 mg/dl (2.5-4.5) 07/31/25 09:54
Fan-X-Lqdtfretejg Pept 72.2 pg/ml 07/30/25 08:16
Albumin 4.0 g/dl (3.5-5.0) 07/31/25 09:54
Physical Exam
-
Vital Signs:
Vital Signs
Temp Pulse Resp BP Pulse Ox
99.9 F 69 15 102/63 98
08/01/25 07:58 08/01/25 10:15 08/01/25 10:15 08/01/25 10:00 08/01/25 09:45
Cardiovascular:: Regular rate and rhythm
Respiratory:: Bilateral: Coarse
Lung Excursion:: Normal
Abdomen:: Nontender and Soft
Bowel Sounds:: Normal
Extremity Edema:: None: Bilateral:
--- NOTE | 2025-08-01 13:27 | W.PN.UPDATE ---
Update Note
Progress Note Update
Patient is more awake then yesterday and appears to understand the questions asked of him but response is very mumbled and circumstantial and hit seems he cannot express his thoughts coherently. He is disoriented to place and time, does not recall
the current president. Interestingly despite being off his psychotropic medical cocktail he denies feeling depressed or having suicidal thoughts. He does have a gross tremor affecting his hand primarily, denies anxiety and does not appear anxious.
For now I would keep him off this psychotropic med but we will follow him daily through the department and treat as necessary.
--- NOTE | 2025-08-01 16:11 | PTCARENOTE ---
Patient AOx1 (self). Intermittent full body tremors. NSR with prolonged QT and first degree. On RA with Spo2 greater than 92%. [place] draining yellow urine with sediment. Tolerating pureed diet. IVF running per order. Bed alarm on and audible. Bed in
lowest position, bed of wheels locked, and call hogue within reach.
--- NOTE | 2025-08-01 16:12 | PTCARENOTE ---
Transferred patient to . Verbal report given to Irma PANG. Belongings transferred with patient.
[2025-08-01] MEDS: FLOMAX 0.4 MG PO (17:57)
--- NOTE | 2025-08-01 18:59 | VATNOTE ---
RIGHT NON TUNNELED HD CATH REMOVED PER MD. NO BLEEDING NOTED. PRESSURE DRESSING IN PLACE PER PROTOCOL. PT RESTING
[2025-08-01] MEDS: SENOKOT 8.6 MG PO (20:11)
[2025-08-01] MEDS: SINGULAIR 10 MG PO (20:11)
[2025-08-01] MEDS: LIPITOR 40 MG PO (20:11)
[2025-08-01] MEDS: MELATONIN 3 MG PO (20:11)
[2025-08-01 21:17] LABS: Blood Urea Nitrogen 30 mg/dl (9-20); Calcium 10.3 mg/dl (8.4-10.2); Carbon Dioxide 28 mmol/L (22-30); Chloride 113 mmol/L (98-107); Estimated Creatinine Clearance 59 ml/min; Glucose 161 mg/dl (70-99); Potassium 3.2 mmol/L (3.5-5.1); Sodium 150 mmol/L (135-145); eGFR 51.03
[2025-08-01] MEDS: KCL 270 MEQ IV (23:09)
--- NOTE | 2025-08-01 23:10 | RESPNOTE ---
BIPAP that is ordered for HS use is being held at this time due to aspiration precautions and the fact that he cannot take it off by himself if he does throw up and he threw up in the mask last night,per RN. 2 L n/c was placed instead.
[2025-08-02] VITALS (8 sets, daily range): BP systolic 112–167; BP diastolic 59–148; BMI 35.7
[2025-08-02] MEDS: D5W 1000 IV ×3 (02:38→20:17)
[2025-08-02 05:03] LABS: Hematocrit 44.0 % (39.0-52.0); Hemoglobin 13.4 g/dL (13.0-18.0); Mean Corp Hgb Conc. 30.5 g/dL (33.0-37.0); Mean Corpuscular Volume 96.3 fL (80.0-94.0); Nucleated Red Blood Cells % 0 % (-); Platelet Count 249 10^3/uL (130-400); Red Cell Dist. Width 15.8 % (11.5-14.5)
[2025-08-02 05:16] LABS: Blood Urea Nitrogen 27 mg/dl (9-20); Calcium 10.4 mg/dl (8.4-10.2); Carbon Dioxide 27 mmol/L (22-30); Chloride 111 mmol/L (98-107); Estimated Creatinine Clearance 59 ml/min; Glucose 194 mg/dl (70-99); Lithium 0.9 mmol/L (0.6-1.2); Potassium 3.2 mmol/L (3.5-5.1); Sodium 147 mmol/L (135-145); eGFR 51.03
[2025-08-02] MEDS: SYNTHROID 50 MCG PO (05:20)
--- NOTE | 2025-08-02 07:34 | W.PN.UPDATE ---
Addendum entered and electronically signed by Vamshi Morrell MD 08/02/25 13:38:
SIRS due to lithium toxicity
Original Note:
Update Note
Progress Note Update
I saw and evaluated the patient. I reviewed the resident�s note and agree with findings and plan as documented in the resident�s note.
Pt does not offer acute complaints.
Gen: NAD, AAOx1
Eyes: EOMI, PERRLA, no scleral icterus.
Neck: supple.
CV: continues to remain RRR, +S1/S2, no m/r/g.
Resp: CTAB, no rales, wheezes, or rhonchi.
Abd: +BS, soft, NT, ND
Skin: No rashes.
Neuro: CN 2-12 intact, non-focal, twitching of extremities.
Psych: calm
07/30/25 09:22 Blood/Venous Blood Culture - Preliminary
No Growth in 48 hours- Final report to follow
07/30/25 08:16 Blood/Venous Blood Culture - Preliminary
No Growth in 48 hours- Final report to follow
07/30/25 08:16 Urine Urine Culture - Final
NO GROWTH
07/30/25 08:16 Nasal Swab Influenza Types A & B (JAYDE) - Final
Negative for Influenza A & B, NAAT
Negative results must be combined with clinical observations
and patient history.
Nucleic Acid Amplification test (NAAT)performed on the
[employer] ID NOW platform.
CXR on admission: moderate elevation of the right hemidiaphragm with minimal basilar atelectasis. No focal airspace disease or pleural effusion.
CXR: No acute disease of the chest.
Fever:
-UCx NG and UTI has been ruled out
-Flu/COVID NEG
-doubt infection at this point. Suspect fever was due to lithium toxicity.
-was on Zosyn, stopped 08/01/25
Acute toxic encephalopathy due to lithium toxicity and acute metabolic encephalopathy due to DEANA:
-was obtunded on admission, now awake and alert
-holding [place], Li level now normal
-psych following
-Cr improving with IVFs
-renal following
-cont D5W for hypernatremia
-with twitching will check EEG
-c/s neuro
Other problems:
Hypokalemia: Replete, check Mg
Hypercalcemia, resolved
Troponin of 0.051 is of no clinical significance and was due to acute kidney injury
HLD: statin on hold
Essential HTN: BB on hold
Hypothyroidism: cont levothyroxine
Mental health disorder: all home psychotropic medications on hold, psych following
Prostate disease
Obesity due to excess calories
FULL/heparin
[2025-08-02] MEDS: ATROVENT NEBULES 0.5 MG INH ×2 (08:03→19:37)
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
--- NOTE | 2025-08-02 09:09 | PN.CDI ---
CDI
- -
CDI:
Physician Documentation Request
Admit Date: 07/30/25 10:41
Dear Doctor Lisa and Dr. Morrell,
Please review the following and provide your response in the progress notes.
Clinical Indicators:
PN, 08/01
#Fever:
#...-UCx NG and UTI has been ruled out
#...-doubt infection at this point.
#...Suspect fever was due to lithium toxicity.
#...-was on Zosyn, stopped 08/01/25
#Acute toxic encephalopathy due to lithium toxicity
#...and acute metabolic encephalopathy due to DEANA:
#...-was obtunded on admission, now awake and alert
#...-holding Mullens, Li level now normal
#...-cont D5W for hypernatremia
Selected Entries
07/30/25
08:10 07/30/25
08:10
Temp 102.9 F H 102.9 F H
Laboratory Tests
07/30/25
08:16
WBC 13.0 H
Laboratory Tests
07/30/25 07/30/25 07/30/25
08:16 13:54 16:51
Creatinine 5.4 H* 5.2 H* 3.7 H
07/30/25 07/30/25 07/31/25
20:00 23:08 03:26
Creatinine 3.9 H 3.7 H 2.8 H
07/31/25 07/31/25 08/01/25
09:54 23:37 03:50
Creatinine 2.9 H 1.9 H 1.9 H
08/01/25 08/02/25
20:49 04:22
Creatinine 1.5 H 1.5 H
Laboratory Tests
07/30/25
08:16
WBC 13.0 H
Laboratory Tests
07/30/25
08:16
Troponin I 0.051 H*
Based on the above and your clinical assessment, please clarify which most accurately describes the patient:
SIRS due to a non-infectious source
Indicate the known or suspected etiology
Indicate if there is associated organ dysfunction, such as renal or respiratory failure
Other(please specify)
Unable to determine
Use of terms such as suspected, likely, concern for, or probable (associated with a specific diagnosis that is being evaluated, monitored, or treated as if it exists) are acceptable and can be coded in the inpatient setting, when documented at the
time of discharge.
Thank you,
Shruti Granger RN BSN CCDS
CDI Specialist
Please contact via tiger text
Please use your independent medical judgment in providing your response.
[2025-08-02 09:12] LABS: Magnesium 1.9 mg/dl (1.6-2.3)
[2025-08-02] MEDS: LOPRESSOR PO ×2 (09:13→09:44)
[2025-08-02] MEDS: ASPIR LOW (ENTERIC COATED) 81 MG PO (09:13)
[2025-08-02] MEDS: HEPARIN 5000 UNITS SC ×2 (09:13→16:54)
[2025-08-02] MEDS: COLACE PO ×2 (09:13→09:44)
[2025-08-02] MEDS: PROTONIX 40 MG PO (09:13)
[2025-08-02] MEDS: MYCOSTATIN ORAL SUSPENSION PO ×4 (09:13→18:24)
[2025-08-02] MEDS: DESENEX/MITRAZOL/ZEASORB 1 APPLIC TOPICAL ×2 (09:14→20:18)
[2025-08-02] MEDS: KCL 270 MEQ IV (11:03)
--- NOTE | 2025-08-02 11:47 | CM ---
CM following re: discharge planning.
Reviewed pt's chart, met with pt and spoke to [facility] liaison to update on discharge plan progress.
Per [facility] liaison, pt admitted to their facility on 07/16/25 from [facility], it was a [facility] admission and pt was admitted with a plan for a oysterman care. Per liaison, pt was receiving skilled services under
[facility], on Medicaid pending bed hold and pt will be accepted back when medically stable and an auth for skilled services requested. Per liaison, pt has sister Jojo who is his POA.
D/C plan: return back to [facility] to continue on skilled services and transitioning to a oysterman care.
CM will follow with discharge plan updates as hospitalization progresses
[2025-08-02] MEDS: ZOFRAN 4 MG IV (12:25)
[2025-08-02 12:43] LABS: Vitamin B12 719 pg/ml (239-931)
--- NOTE | 2025-08-02 12:54 | EEG.RPT ---
Electroencephalogram Report
Recording
Date of EE08/02/25
Type of EEG: Routine
Length of EEG recordin minutes
Done with Video Recording: Yes
Patient Status: Inpatient
Recording Conditions: Awake and Drowsy
Hyperventilation Performed: No
Photic Stimulation Performed: Yes
Report
LESS THAN 1 HOUR REPORT
LESS THAN 1 HOUR EEG INTERPRETATION:
Mild to moderately abnormal EEG for age mild diffuse bihemispheric slowing.
CLINICAL CORRELATION:
This study was suggestive of diffuse cortical dysfunction without focal abnormality. Movements demonstrated were not associated with epileptiform activity. No seizures were recorded.
Compared with the prior study, there was mild improvement in that a theta background was briefly demonstrated.
If concerns remain regarding seizures, consideration for prolonged EEG recording may be given.
Clinical correlation is advised.
METHODS:
A 21 channel digitized electroencephalogram (EEG) was performed in the Clinical Neurophysiology Laboratory. The 10/20 international system of electrode placement was used with ECG and lateral/vertical eye movements recorded. The [employer] quantitative
measurement system was utilized.
QUALITY OF STUDY:
Good
ELECTROENCEPHALOGRAPHER IMPRESSION(S):
Background
Medium amplitude fairly to poorly organized anterior-posterior voltage gradient of theta maximal, typically delta activity
There were no significant asymmetries of background activity noted.
Sleep
Drowsiness present
Photic Stimulation
Failed to activate the record
ECG
Normal sinus rhythm
--- NOTE | 2025-08-02 13:27 | WOUNDNOTE ---
R GROIN SKIN FOLD LATERAL
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
--- NOTE | 2025-08-02 13:32 | W.PN.NEPH.PH ---
Today's Communication / Plan
-
Continue D5W
Assessment/Plan
-
Assessment
Volta toxicity
obtundation
DEANA
Hypernatremia
Hypertension
Hypothyroidism
Muscle rigidity, hypotonicity
Plan
Volta level normalized
Nonoliguric
Zamorano catheter keep in place
D5W continue with improved sodium
Abdominal distention CT noted= defer to primary team
Continue D5W
-
-
Date of Service: August 02, 2025
CC / HPI / ROS
-
Chief Complaint:
DEANA
History of Present Illness:
DEANA/Cr down to 1.9
Na up at 154
Li 1.2
BP stable
nonoliguric
Review of Systems:
Awake but still signs of confusion
train of thought still off
still with myoclonus
Labs
-
Labs:
WBC 10.0 10^3/uL (4.8-10.8) 08/02/25 04:22
RBC 4.57 10^6/uL (4.70-6.10) L 08/02/25 04:22
Hgb 13.4 g/dL (13.0-18.0) 08/02/25 04:22
Hct 44.0 % (39.0-52.0) 08/02/25 04:22
Plt Count 249 10^3/uL (130-400) 08/02/25 04:22
Sodium 147 mmol/L (135-145) H 08/02/25 04:22
Potassium 3.2 mmol/L (3.5-5.1) L 08/02/25 04:22
Chloride 111 mmol/L (98-107) H 08/02/25 04:22
Carbon Dioxide 27 mmol/L (22-30) 08/02/25 04:22
BUN 27 mg/dl (9-20) H 08/02/25 04:22
Creatinine 1.5 mg/dL (0.7-1.3) H 08/02/25 04:22
eGFR 51.03 08/02/25 04:22
Glucose 194 mg/dl (70-99) H 08/02/25 04:22
Calcium 10.4 mg/dl (8.4-10.2) H 08/02/25 04:22
Phosphorus 4.0 mg/dl (2.5-4.5) 07/31/25 09:54
Qtx-Q-Hlbvuqjgprk Pept 72.2 pg/ml 07/30/25 08:16
Albumin 4.0 g/dl (3.5-5.0) 07/31/25 09:54
Physical Exam
-
Vital Signs:
Vital Signs
Temp Pulse Resp BP Pulse Ox
99.4 F 88 18 130/107 90
08/02/25 07:13 08/02/25 08:06 08/02/25 08:06 08/02/25 07:13 08/02/25 07:13
Cardiovascular:: Regular rate and rhythm
Respiratory:: Bilateral: Coarse
Lung Excursion:: Normal
Abdomen:: Distended and Nontender
Bowel Sounds:: Decreased
Extremity Edema:: +1: Bilateral:
Zamorano Catheter: Yes
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
[2025-08-02] MEDS: LOPRESSOR 5 MG IV ×2 (14:45→20:17)
[2025-08-02] MEDS: THIAMINE INJECTION 200 MG IV (14:45)
--- NOTE | 2025-08-02 15:11 | W.PN.UPDATE ---
Update Note
Progress Note Update
At 2:30 PM, the patient's heart rate became tachycardic and irregular. ECG demonstrated a flutter with variable AV block. Heart rate 131. Given metoprolol 5 mg IV. Patient's heart remained elevated at 121. He was transferred to the IMU on a
Cardizem drip. Echo pending.
Chads 2 VASc score was 1, so anticoagulation was not initiated. Cardiology consulted. The decision whether to start anticoagulation would be dependent on abdominal process.
CT abdomen pelvis without contrast pending for acute abdomen.
--- NOTE | 2025-08-02 15:16 | CON.CAR ---
Addendum entered and electronically signed by Dmitriy Morales MD 08/02/25 17:27:
I saw and examined the patient.
The INDEPENDENT VIDEO PRODUCER's note was reviewed and I agree with the note.
65-year-old male with history of bipolar disorder, hypertension hypercholesterolemia asthma history of substance abuse ( heroin and ETOH). Patient initially admitted with fever and hypoxemia and noted to have lithium toxicity, DEANA ( cr 5.4)and
mental status change.. Patient seen in consultation this admission by nephrology, neurology and psychiatry. DEANA has improved. Initially noted to be in sinus rhythm. Consult now requested for development of atrial flutter with RVR. ECG on
08/02/2025 with atrial flutter with heart rate of 131. In addition patient has a distended abdomen and x-ray with diffuse distention ileus versus large bowel obstruction
.
Atrial flutter
- New diagnosis
- Appears asymptomatic
- [id number] 2 (age greater than 65 and hypertension)
- Although normally I would recommend anticoagulation, patient has an ongoing intra-abdominal process that is being assessed. Until this is further clarified it would not add anticoagulation. Also is not clear that this patient would be a good
long-term anticoagulation candidate. For the time being would continue with rate control. Patient currently on low-dose beta-randi. Heart rates currently in the 120s. IV Cardizem has just been initiated.
Will monitor response to IV Cardizem.
- Echocardiogram
Original Note:
Consultation
Consultation Request
Date/Time Consultation Requested: 08/02/2025 14:40
Date/Time Consultation Performed: 08/02/2025 15:15
Requesting Provider: Dr. Gonzalez [ Resident]
Performing Provider: MIKALA Godfrey for Dr. Morales
Reason for Consultation: Atrial flutter, new onset
Medical History
-
Chief Complaint: Change in mental status
History of Present Illness:
Mark Casarez is a 65-year-old male with hypertension, hypercholesterolemia, hypothyroidism, asthma, prior EtOH abuse, prior heroin abuse, bipolar disorder, and major depressive disorder with prior suicidal ideation (status post electroconvulsive
therapy) presented to the emergency department on 07/30/2025 with change in mental status. He was found to have a fever, tachypnea, and hypoxia prior to arrival. Since admission with SIRS in the setting of lithium toxicity, he has received dialysis
for DEANA and lithium toxicity with change in mental status, chronic Zamorano without growth and urine culture, and now has abdominal distention and pain. Cardiology was consulted today for rapid atrial flutter. The patient was nonconversant during
this consultation.
Past Medical History
Past Medical History: Asthma, Cancer (Prostate), GERD, HTN, Hypothyroidism and Psychiatric (Bipolar, major depressive disorder)
Past Surgical History: Orthopedic
Social History
Alcohol: Former
Drug: Former User
Living: Residential
Employment: Not Employed
Family History
Family History: Unable to Obtain
Allergies / Home Medications
Allergy/AdvReac Type Severity Reaction Status Date / Time
No Known Allergies Allergy Unverified 07/30/25 08:40
�Medication �Instructions �Recorded �Confirmed �Type
acetaminophen 325 mg tablet 650 mg PO Q6HPRN PRN MILD PAIN 07/30/25 07/30/25 History
(Tylenol)
aspirin 81 mg tablet,delayed 81 mg PO DAILY Blood Clot 07/30/25 07/30/25 History
release Prevention/Tx
atorvastatin 40 mg tablet (Lipitor) 40 mg PO HS High Cholesterol 07/30/25 07/30/25 History
bisacodyl 10 mg rectal suppository 10 mg [place] DAILYPRN PRN IF NO BM 07/30/25 07/30/25 History
(Dulcolax (bisacodyl)) AFTR MOM
ciprofloxacin HCl 500 mg tablet 500 mg PO BID Infection 07/30/25 07/30/25 History
(Cipro)
docusate sodium 100 mg capsule 100 mg PO BID Constipation 07/30/25 07/30/25 History
(Colace)
ferrous sulfate 325 mg (65 mg 325 mg PO DAILY Supplement 07/30/25 07/30/25 History
iron) tablet
ipratropium bromide 17 2 puff inhalation BID 07/30/25 07/30/25 History
mcg/actuation HFA aerosol inhaler Lung/Breathing Issues
lamotrigine 100 mg tablet 100 mg PO BID Neurological 07/30/25 07/30/25 History
Condition
levothyroxine 50 mcg tablet 50 mcg PO DAILY Thyroid 07/30/25 07/30/25 History
(Synthroid)
lithium carbonate 300 mg capsule 600 mg PO HS Mental Health/Anxiety 07/30/25 07/30/25 History
magnesium hydroxide 400 mg/5 mL 2,400 mg PO [id number] PRN 07/30/25 07/30/25 History
oral suspension (Milk of Magnesia) CONSTIPATION
melatonin 3 mg tablet 3 mg PO HS Sleep 07/30/25 07/30/25 History
metoprolol tartrate 25 mg tablet 25 mg PO BID Blood Pressure 07/30/25 07/30/25 History
montelukast 10 mg tablet 10 mg PO HS Allergies 07/30/25 07/30/25 History
(Singulair)
pantoprazole 40 mg tablet,delayed 40 mg PO DAILY Gastrointestinal 07/30/25 07/30/25 History
release (Protonix) Issue
quetiapine 100 mg tablet (Seroquel) 500 mg PO HS Mental Health/Anxiety 07/30/25 07/30/25 History
sennosides 8.6 mg tablet (senna) 8.6 mg PO HS Constipation 07/30/25 07/30/25 History
sodium phosphates 19 gram-7 118 ml [place] DAILYPRN PRN IF NO BM 07/30/25 07/30/25 History
gram/118 mL enema (Fleet Enema) AFTR DULCOLAX
tamsulosin 0.4 mg capsule (Flomax) 0.4 mg PO QPM Urinary Issue 07/30/25 07/30/25 History
trazodone 50 mg tablet 50 mg PO HS Sleep 07/30/25 07/30/25 History
venlafaxine 150 mg 150 mg PO DAILY Depression 07/30/25 07/30/25 History
capsule,extended release 24 hr
(Effexor XR)
Review of Systems
-
Unable to obtain full review of systems at this time due to: Patient Non Verbal
Physical Exam
Vital Signs
Temp Pulse Resp BP Pulse Ox
99.4 F 124 18 131/62 96
08/02/25 07:13 08/02/25 14:45 08/02/25 08:06 08/02/25 13:56 08/02/25 13:56
Lab Results
08/02/25 04:22
08/02/25 04:22
Troponin I < 0.012 ng/ml 07/30/25 16:51
Ifp-H-Mrwquuhjnru Pept 72.2 pg/ml 07/30/25 08:16
Physical Exam
General: Well Developed, Well Nourished and No Apparent Distress
HEENT: Normocephalic, Anicteric and Moist Mucous Membranes
Respiratory: Clear and Non Labored Respirations
Cardiac: S1/S2 and Irregular Rhythm
Breast: Deferred by me
GI: Soft, Non Tender, Non Distended and Normal Bowel Sounds
Rectal: Deferred by Provider
Genito-urinary: No Costovertebral Tender
Musculoskeletal: No Clubbing and No Cyanosis
Skin: Warm and Dry
Neuro: Awake and Alert
Hematologic/Lymphatic: No Lymphadenopathy
Psych: Calm
Impression / Plan
-
I/P: 65M with hypertension, hypercholesterolemia, hypothyroidism, asthma, prior EtOH abuse, prior heroin abuse, bipolar disorder, and major depressive disorder with prior suicidal ideation (status post electroconvulsive therapy) presented to the
emergency department on 07/30/2025 with change in mental status.
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
Atrial flutter, type unknown
- Continue metoprolol tartrate 25 mg twice daily, diltiazem drip ordered by primary service
- Oral Anticoagulation: None, needs abdominal evaluation
- [id number]: Score at least 2 (HTN, age 65-74), possibly 3, fasting hyperglycemia, HgbA1c pending
- TSH stable
Abdominal pain
- CXR with possible ileus versus large bowel obstruction, GS consulted
DEANA, resolved, briefly received dialysis
[place] toxicity, resolved
Change in mental status, improved
- Likely in the setting hypernatremia, lithium toxicity, and medication side effect
Abnormal troponin, nonischemic myocardial injury in the setting of acute illness and DEANA
Hypercholesterolemia, atorvastatin on hold, unclear why he is on ASA
Hypernatremia, per nephrology
Hypercalcemia, per nephrology
Major depressive disorder with bipolar disorder, per primary
MOLLY, on BiPAP
Data Reviewed
-
EKG: Report Reviewed by me
Radiology: Report Reviewed by me
Labs: Labs Reviewed by me
--- NOTE | 2025-08-02 15:24 | W.PN.UPDATE ---
Update Note
Progress Note Update
attempted to see patient, who had a great deal of difficulty communicating. intially appeared to understand questions, says he is in pain, but on closer questioning unable to say where we are, answers '[age]' to how old he is, No longer tremulous as
mentioned in previous notes, though still has tongue thrusting of tardive dyskinesia. would continue to hold psychotropics
[2025-08-02] MEDS: CARDIZEM 125 IV (15:58)
[2025-08-02 17:25] LABS: Ammonia < 9 umol/L (9-30)
[2025-08-02] MEDS: FLOMAX PO (17:27)
--- NOTE | 2025-08-02 18:30 | PTCARENOTE ---
Patient with irregular pulse in 120s-130s this afternoon; MD notified. Order for ECG and telemetry monitoring. ECG showed aflutter with variable AV block; telemetry shows afib 120s with RVR at times to 140s-150s. Received order for IV metoprolol,
patient sustained in afib 120s-130s. Received order for cardizem drip and transfer to IMU for higher level of care when bed available. Took patient to IMU nurse Hannah at around 6:[address] abdominal CT scan.
[2025-08-02] MEDS: COLACE 100 MG PO (20:17)
[2025-08-02] MEDS: FLOMAX 0.4 MG PO (20:17)
[2025-08-02] MEDS: SENOKOT 8.6 MG PO (20:17)
[2025-08-02] MEDS: MELATONIN 3 MG PO (20:17)
[2025-08-02] MEDS: SINGULAIR 10 MG PO (20:17)
[2025-08-02] MEDS: LIPITOR 40 MG PO (20:17)
[2025-08-02] MEDS: MYCOSTATIN ORAL SUSPENSION 5 ML PO (20:18)
[2025-08-03] VITALS (15 sets, daily range): BP systolic 116–167; BP diastolic 76–134
--- NOTE | 2025-08-03 00:22 | PTCARENOTE ---
received pt at change of shift. pt aaox1, slow garbled speech. Extensive psych history. Nocturnal O2 test in progress. SaO2 89-92% on RA. CHG wipes, tejeda wipes, oral care done. L buttock dressing changed. Hair washed. Abdomen round, obese,
distended, firm. Tejeda draining ai urine with small amount of sediment. Aflutter/ST on the monitor. HR 110-130s. Cardizem gtt running through R midline at 15ml/hr. D5W running through R midline at 150ml/hr. NPO with meds and sips of clears. PM
meds given with no difficulty. VSS. Pt resting comfortably in bed at this time. Care ongoing.
[2025-08-03] MEDS: CARDIZEM 125 IV ×2 (00:40→12:18)
[2025-08-03] MEDS: HEPARIN 5000 UNITS SC (00:40)
[2025-08-03] MEDS: D5W 1000 IV ×4 (03:02→21:59)
[2025-08-03] MEDS: SYNTHROID 50 MCG PO (05:28)
[2025-08-03] MEDS: LOPRESSOR 5 MG IV (05:28)
[2025-08-03 05:34] LABS: Hemoglobin 13.9 g/dL (13.0-18.0)
[2025-08-03 06:13] LABS: Blood Urea Nitrogen 18 mg/dl (9-20); Calcium 9.6 mg/dl (8.4-10.2); Carbon Dioxide 28 mmol/L (22-30); Chloride 107 mmol/L (98-107); Estimated Creatinine Clearance 74 ml/min; Glucose 187 mg/dl (70-99); Potassium 3.5 mmol/L (3.5-5.1); Sodium 142 mmol/L (135-145); eGFR > 60.00
[2025-08-03] MEDS: ATROVENT NEBULES 0.5 MG INH ×2 (07:42→19:37)
--- NOTE | 2025-08-03 08:52 | W.PN.CD ---
Today's Communication / Plan
-
Switch IV rate control agents to PO
Start AC
Consider JOHANA/DCCV prior to discharge pending clinical course
Impression / Plan
-
I/P: 65M with hypertension, hypercholesterolemia, hypothyroidism, asthma, prior EtOH abuse, prior heroin abuse, bipolar disorder, and major depressive disorder with prior suicidal ideation (status post electroconvulsive therapy) presented to the
emergency department on 07/30/2025 with change in mental status.
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' admission prior to [facility])
Atrial flutter, type unknown
- Rates improved. Switch IV Metoprolol to PO 50mg BID. Start PO Diltiazem 180mg daily and wean diltiazem drip
- [id number]: Score at least 2 (HTN, age 65-74), possibly 3, fasting hyperglycemia, HgbA1c pending
- Start Apixaban 5mg BID for AC
- Consider JOHANA/DCCV later this admission pending clinical course
Abdominal pain
- CTAP with no bowel obstruction, pancreas lesion present
DEANA, resolved, briefly received dialysis
[place] toxicity, resolved
Change in mental status, improved
- Likely in the setting hypernatremia, lithium toxicity, and medication side effect
Abnormal troponin, nonischemic myocardial injury in the setting of acute illness and DEANA
Hypercholesterolemia, atorvastatin on hold, unclear why he is on ASA
Hypernatremia, per nephrology
Hypercalcemia, per nephrology
Major depressive disorder with bipolar disorder, per primary
MOLLY, on BiPAP
Subjective: Answering questions appropriately. Denies pain or SOB.
Physical Exam
Vital Signs/Labs
Vital Signs
Temp Pulse Resp BP Pulse Ox
97.9 F 102 17 118/96 92
08/03/25 08:00 08/03/25 07:45 08/03/25 07:45 08/03/25 06:22 08/03/25 07:45
08/03/25 05:01
Magnesium 1.9 mg/dl (1.6-2.3) 08/02/25 04:22
Free T4 1.16 ng/dl (0.78-2.19) 07/30/25 16:51
07/30/25
08:16
Uyk-X-Ihyptnlittd Pept 72.2
Physical Exam
Constitutional: No acute distress and Comfortable
Cardiovascular: Pedal edema is absent, Rhythm/rate is irregular, S1S2 is normal and Murmur/rub/gallop absent
Respiratory: Respiratory effort normal
Data Reviewed
-
Date of Service: August 03, 2025
Medical Decision Making: Reviewed Test Results, Test Interpretation and Review of Case with other Provider
EKG: Tracing Personally Visualized and interpreted
Echo: Report Reviewed by me
Labs: Labs Reviewed by me
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
[2025-08-03] MEDS: CARDIZEM CD 180 MG PO (09:44)
[2025-08-03] MEDS: ELIQUIS 5 MG PO ×2 (09:44→19:43)
[2025-08-03] MEDS: MYCOSTATIN ORAL SUSPENSION 5 ML PO ×3 (09:45→19:52)
[2025-08-03] MEDS: PROTONIX 40 MG PO (09:45)
[2025-08-03] MEDS: ASPIR LOW (ENTERIC COATED) 81 MG PO (09:45)
[2025-08-03] MEDS: THIAMINE INJECTION 200 MG IV (09:45)
[2025-08-03] MEDS: COLACE 100 MG PO ×2 (09:46→19:43)
[2025-08-03] MEDS: DESENEX/MITRAZOL/ZEASORB 1 APPLIC TOPICAL ×2 (09:46→19:43)
[2025-08-03] MEDS: HEPARIN SC (10:06)
--- NOTE | 2025-08-03 11:15 | W.PN.UPDATE ---
Update Note
Progress Note Update
I saw and evaluated the patient. I reviewed the resident�s note and agree with findings and plan as documented in the resident�s note.
Pt does not offer acute complaints.
Gen: NAD, AAOx1
Eyes: EOMI, PERRLA, no scleral icterus.
Neck: supple.
CV: RRR, +S1/S2, no m/r/g.
Resp: remains CTAB, no rales, wheezes, or rhonchi.
Abd: +BS, soft, NT, obese abdomen
Skin: No rashes.
Neuro: CN 2-12 intact, non-focal, mild twitching of extremities, tardive dyskinesia.
Psych: calm
07/30/25 09:22 Blood/Venous Blood Culture - Preliminary
No Growth in 4 days- Final report to follow
07/30/25 08:16 Blood/Venous Blood Culture - Preliminary
No Growth in 4 days- Final report to follow
07/30/25 08:16 Urine Urine Culture - Final
NO GROWTH
07/30/25 08:16 Nasal Swab Influenza Types A & B (JAYDE) - Final
Negative for Influenza A & B, NAAT
Negative results must be combined with clinical observations
and patient history.
Nucleic Acid Amplification test (NAAT)performed on the
[employer] IP ID NOW platform.
CXR on admission: moderate elevation of the right hemidiaphragm with minimal basilar atelectasis. No focal airspace disease or pleural effusion.
CXR: No acute disease of the chest.
EEG 08/02/25: Mild to moderately abnormal EEG for age mild diffuse bihemispheric slowing. This study was suggestive of diffuse cortical dysfunction without focal abnormality. Movements demonstrated were not associated with epileptiform activity. No
seizures were recorded. Compared with the prior study, there was mild improvement in that a theta background was briefly demonstrated. If concerns remain regarding seizures, consideration for prolonged EEG recording may be given. Clinical
correlation is advised.
CT A/P: Gaseous distention of the colon and moderate colonic stool. Similar compared to the previous abdominal radiographs. No suspicious area of colonic narrowing by CT to suggest a large bowel obstruction within the limitations of the lack of oral
contrast. Mild urinary bladder wall thickening and fat stranding. Recommend correlation with a urinalysis. Nephrolithiasis. 2.3 cm ovoid lesion in the head of the pancreas, indeterminate on this noncontrast exam. This could represent a duodenal
diverticulum or pancreatic cyst and/or neoplasm. No evidence for pancreatic or bile duct dilatation. An abdominal MRI without and with intravenous contrast could be performed for more definitive characterization.
SIRS with acute organ dysfunction due to lithium toxicity:
-UCx NG and UTI has been ruled out
-Flu/COVID NEG
-BCxs NGTD
-continue to doubt infection at this point. Suspect fever was due to lithium toxicity.
-was on Zosyn, stopped 08/01/25
Acute toxic encephalopathy due to lithium toxicity and acute metabolic encephalopathy due to DEANA:
-was obtunded on admission, now awake and alert
-holding [place], Li level now normal
-psych/renal following
-DEANA and hypernatremia have now resolved with hypotonic IVFs
-EEG above, no seizure activity
-tremor and tardive dyskinesia due to lithium
-neuro saw in c/s
Atrial flutter, new onset:
-was on Cardizem gtt, now transitioned to PO BB/Cardizem
-Eliquis started
Vomiting:
-CT A/P above and without obstruction
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
-c/s GI
Other problems:
Hypokalemia, resolved
Hypercalcemia, resolved
Troponin of 0.051 is of no clinical significance and was due to acute kidney injury
HLD: statin on hold
Essential HTN: cont BB/CCB
Hypothyroidism: cont levothyroxine
Mental health disorder: all home psychotropic medications on hold, psych following
Prostate disease
Obesity due to excess calories
FULL/heparin
--- NOTE | 2025-08-03 11:16 | W.PN.NEPH.PH ---
Today's Communication / Plan
-
Decrease D5W to 60 cc/h while patient remains on clear
Electrolytes within normal limits will sign off
Assessment/Plan
-
Assessment
[place] toxicity
obtundation
DEANA
Hypernatremia
Hypertension
Hypothyroidism
Muscle rigidity, hypotonicity
Plan
[place] level normalized
Nonoliguric
Zamorano catheter keep in place
D5W continue with improved sodium= decrease to 60 cc/h as patient is still on clears
Abdominal distention CT noted= no obstruction
Electrolytes otherwise normal I will sign off please call if needed
-
-
Date of Service: August 03, 2025
CC / HPI / ROS
-
Chief Complaint:
DEANA
History of Present Illness:
DEANA/Cr down to 1.9
Na up at 154
Li 1.2
BP stable
nonoliguric
Review of Systems:
Awake but still signs of confusion
No chest pain or shortness of breath
Labs
-
Labs:
Sodium 142 mmol/L (135-145) 08/03/25 05:01
Potassium 3.5 mmol/L (3.5-5.1) 08/03/25 05:01
Chloride 107 mmol/L (98-107) 08/03/25 05:01
Carbon Dioxide 28 mmol/L (22-30) 08/03/25 05:01
BUN 18 mg/dl (9-20) 08/03/25 05:01
Creatinine 1.2 mg/dL (0.7-1.3) 08/03/25 05:01
eGFR > 60.00 08/03/25 05:01
Glucose 187 mg/dl (70-99) H 08/03/25 05:01
Calcium 9.6 mg/dl (8.4-10.2) 08/03/25 05:01
Phosphorus 4.0 mg/dl (2.5-4.5) 07/31/25 09:54
Irn-G-Plgijvkflmd Pept 72.2 pg/ml 07/30/25 08:16
Albumin 4.0 g/dl (3.5-5.0) 07/31/25 09:54
Physical Exam
-
Vital Signs:
Vital Signs
Temp Pulse Resp BP Pulse Ox
97.9 F 102 17 153/76 92
08/03/25 08:00 08/03/25 09:44 08/03/25 07:45 08/03/25 09:44 08/03/25 07:45
Cardiovascular:: Regular rate and rhythm
Respiratory:: Bilateral: Coarse
Lung Excursion:: Normal
Abdomen:: Distended and Nontender
Bowel Sounds:: Decreased
Extremity Edema:: +1: Bilateral:
Zamorano Catheter: Yes
[2025-08-03 11:52] LABS: Glycohemoglobin (HgbA1c) 5.6 % (4.0-5.6)
--- NOTE | 2025-08-03 12:24 | W.PN.GS2 ---
Addendum entered and electronically signed by Norman Reid MD 08/03/25 12:35:
-- OK for enemas, favor rectal over PO at this time
Original Note:
Today's Communication / Plan
-
-- GI consult
-- NPO, IVF until clinical and radiographic improvement
-- Daily abd X-ray for objective signs of improvement
-- Correct lytes, minimize narcotics, OOB as able
-- Please call with questions or concerns
Assessment / Plan
-
Patient is a 65 yo M was admitted to on 07/30/2025 from [facility] after he was found to have low urine output requiring Tejeda catheter placement which was concerning for a UTI.
General surgery consulted after an episode of nausea and vomiting as well as an abdominal x-ray which demonstrated large bowel dilation. Noncontrast CT scan imaging demonstrates gastric distention, normal-appearing small bowel, diffuse large bowel
dilation with air and fluid levels up to the level of the rectosigmoid without any clear evidence of mass or stricturing consistent with large bowel dysmotility or Annabelle's.
No indication or need for general surgery intervention. Recommend medical management of Annabelle's with bowel rest (unable to place NGT given patient's psych issues), IVF, correct electrolytes, minimize narcotics. Consult GI for further aid in
medical management as well as potential consideration of motility agents such as neostigmine. Would obtain serial x-rays as an objective way to assess improvement given the difficulties in clinical assessment with his mental status and morbid
obesity. Okay for milk of molasses enemas. All questions answered. Call with any questions or concerns.
-- No indication for surgical intervention
-- GI consult
-- NPO, IVF until clinical and radiographic improvement
-- Daily abd X-ray for objective signs of improvement
-- Correct lytes, minimize narcotics, OOB as able
-- Please call with questions or concerns
Subjective Data
-
Date of Service: August 03, 2025
Mental status precludes any meaningful encounter or history. Nursing reports no bowel movements over the past 24 hours. No fevers. Unable to tolerate NGT placement.
Objective Data
-
Intake and Output
08/02/25 08/03/25 08/04/25
06:59 06:59 06:59
Intake Total 2790 / 2790 1680 / 1680
Output Total 1400 / 1400 1000 / 1000
Balance 1390 / 1390 680 / 680
Intake:
Oral fluids 1440 / 1440 0 / 0
IV fluids (Total) 1350 / 1350 1410 / 1410
IV piggybacks 270 / 270
Output:
Emesis 200 / 200
Urine, Tejeda 1200 / 1200 1000 / 1000
Vital Signs
Temp Pulse Resp BP Pulse Ox
98.6 F 102 17 153/76 92
08/03/25 12:00 08/03/25 09:44 08/03/25 07:45 08/03/25 09:44 08/03/25 07:45
Lab Results
08/03/25 05:01
Calcium 9.6 mg/dl (8.4-10.2) 08/03/25 05:01
Phosphorus 4.0 mg/dl (2.5-4.5) 07/31/25 09:54
Magnesium 1.9 mg/dl (1.6-2.3) 08/02/25 04:22
Total Bilirubin 1.3 mg/dl (0.2-1.3) 07/31/25 09:54
Direct Bilirubin 0.4 mg/dl (0.0-0.4) 07/30/25 23:08
AST 36 U/L (17-59) 07/31/25 09:54
ALT 15 U/L (0-50) 07/31/25 09:54
Alkaline Phosphatase 50 U/L (38-126) 07/31/25 09:54
Total Protein 7.3 g/dl (6.3-8.2) 07/31/25 09:54
Albumin 4.0 g/dl (3.5-5.0) 07/31/25 09:54
Physical Exam
-
Gen: NAD
Abd soft, NT, distended, obese, tympanitic, non-peritoneal, prior midline incision well healed
Patient has a tejeda catheter: No
Patient has a central line: No
--- NOTE | 2025-08-03 12:55 | CON.GI ---
Addendum entered and electronically signed by Brian Wild MD 08/03/25 16:29:
Though unlikely, check stool c diff
Addendum entered and electronically signed by Brian Wild MD 08/03/25 16:27:
I saw and evaluated the patient. I reviewed the resident�s note and agree with findings and plan as documented in the resident�s note.
65yo male hx bipolar, suicide attempts, presents from [place] with hypernatremia, change in MS, currently rx for UTI. [place] levels elevated, also ARF, and HD was considered, but not necessary. Had n/v during admission. AXR showed distention of SB and
colon, possible ileus vs colonic obstruction. CT without contrast shows colonic distention and moderate colonic stool, limited by lack of contrast. Milk and molasses enema given with passage of stool mixed with enema.
ABD distended, soft, tympanitic, nontender
REC:
Check OBS series in AM to monitor colonic ileus
Can give further enema prn
Monitor and correct electrolytes. Mg, Ca, K ok currently
Avoid narcotics
Start miralax
If no response, consider neostigmine.
OOB as able
Original Note:
Consultation
-
Date/Time Consultation Requested: 08/03/2025
Date/Time Consultation Performed: 08/03/2025
Requesting Provider: Mable Gonzalez
Performing Provider: Brian Wild
Reason for Consultation: Concern for colonic pseudoobstruction
Medical History
Chief Complaint / HPI
Chief Complaint: Mental status change
History of Present Illness:
Mark Casarez is a 65-year-old male with a past medical history of bipolar 1 disorder, ROBERT, chronic pain syndrome, MOLLY, BPH, urinary retention, polysubstance use (alcohol, opioids), hypertension, HLD, hypothyroidism, iron deficiency, vitamin B12/D
deficiency, GERD, asthma, prostate cancer, refractory MDD (s/p electroconvulsive therapy) with recent hospitalization for suicidal ideation, who presented from [facility] due to hypernatremia (152) and mental status changes over 3 days in the
setting of a UTI (on abx).
He arrived at [facility] on 07/16/25, coming from [facility] for suicidal ideation. At [facility] he required straight cath, UA was done, started on ciprofloxacin on 07/28/2025. On 07/29/2025 was refusing meds,
became lethargic, stat labs showing hypernatremia of 152. Per paramedics, patient was found to be mildly hypoxic, requiring supplemental oxygen. Patient was arousable to external stimuli, but not following any verbal commands.
Upon arrival in ED, patient was somnolent, but arousable to physical stimuli. He was presumed septic with possible urinary source, blood cultures were drawn, he was started on Zosyn in the ED. Labs revealed elevated lithium levels, CT head was
unremarkable. Psych meds were held and he was given fluid resuscitation for hypernatremia/hypovolemia. he was planned for dialysis, but lithium levels normalized and dialysis was held. Psych has been following -- agree that lithium tox could
contribute to symptoms of delirium. He was cleared by speech for IDDSI 4 diet. Serum sodium continued to fluctuate between normal and hypernatremic. On 08/01 he had an episode of roughly 300 cc of yellow/orange emesis into his bipap mask overnight.
He had another episode of vomiting on 08/02 was made n.p.o. Abdominal x-ray demonstrated diffuse gaseous distention, concerning for ileus versus large bowel obstruction. CT abdomen with oral contrast unable to be given due to n.p.o.
status/cooperation. IV contrast unable to be given due to DEANA. Noncontrast CT abdomen pelvis obtained which showed gaseous distention of the colon/moderate colonic stool, no suspicious area of colonic narrowing to suggest LBO, however acknowledged
limitations without contrast. Surgery was consulted. NG tube placement was attempted multiple times, however patient was not cooperative and it could not be placed. Patient had a sudden episode of tachycardia/a flutter with variable AV block, was
given IV metoprolol and upgraded to IMU on Cardizem drip. Echo was done which showed normal LVEF, EF 55 to 60%, no significant valvular abnormalities, however it was a technically difficult study with poor image quality and there were no images
available for comparison. Cardiology was consulted for new onset A-flutter. Patient currently on regulation, p.o. metoprolol and diltiazem for rate control. Seen by neuro, EEG was normal, recommend thiamine and MRI if delirium continues to not
improve despite electrolyte and drug level correction. Major concern for GI sx of imaging findings, vomiting, etc. raise concern for [place]'s syndrome for which GI was consulted
Past Medical History
Past Medical History: Other (See HPI)
Past Surgical History: Other (chest surgery, ex lap, lumbar puncture, tibial shaft fracture with plates/screws, ORIF tibia, tibial implant, removal of nail from tibia)
Social History
Alcohol: Former
Drug: Former User
Living: Alf
Employment: Not Employed
Family History
Family History: Reviewed & Not Pertinent
Allergies / Home Medications
Allergy/AdvReac Type Severity Reaction Status Date / Time
No Known Allergies Allergy Unverified 07/30/25 08:40
�Medication �Instructions �Recorded
acetaminophen 325 mg tablet 650 mg PO Q6HPRN PRN MILD PAIN 07/30/25
(Tylenol)
aspirin 81 mg tablet,delayed 81 mg PO DAILY Blood Clot 07/30/25
release Prevention/Tx
atorvastatin 40 mg tablet (Lipitor) 40 mg PO HS High Cholesterol 07/30/25
bisacodyl 10 mg rectal suppository 10 mg NJ DAILYPRN PRN IF NO BM 07/30/25
(Dulcolax (bisacodyl)) AFTR MOM
ciprofloxacin HCl 500 mg tablet 500 mg PO BID Infection 07/30/25
(Cipro)
docusate sodium 100 mg capsule 100 mg PO BID Constipation 07/30/25
(Colace)
ferrous sulfate 325 mg (65 mg 325 mg PO DAILY Supplement 07/30/25
iron) tablet
ipratropium bromide 17 2 puff inhalation BID 07/30/25
mcg/actuation HFA aerosol inhaler Lung/Breathing Issues
lamotrigine 100 mg tablet 100 mg PO BID Neurological 07/30/25
Condition
levothyroxine 50 mcg tablet 50 mcg PO DAILY Thyroid 07/30/25
(Synthroid)
lithium carbonate 300 mg capsule 600 mg PO HS Mental Health/Anxiety 07/30/25
magnesium hydroxide 400 mg/5 mL 2,400 mg PO [id number] PRN 07/30/25
oral suspension (Milk of Magnesia) CONSTIPATION
melatonin 3 mg tablet 3 mg PO HS Sleep 07/30/25
metoprolol tartrate 25 mg tablet 25 mg PO BID Blood Pressure 07/30/25
montelukast 10 mg tablet 10 mg PO HS Allergies 07/30/25
(Singulair)
pantoprazole 40 mg tablet,delayed 40 mg PO DAILY Gastrointestinal 07/30/25
release (Protonix) Issue
quetiapine 100 mg tablet (Seroquel) 500 mg PO HS Mental Health/Anxiety 07/30/25
sennosides 8.6 mg tablet (senna) 8.6 mg PO HS Constipation 07/30/25
sodium phosphates 19 gram-7 118 ml NJ DAILYPRN PRN IF NO BM 07/30/25
gram/118 mL enema (Fleet Enema) AFTR DULCOLAX
tamsulosin 0.4 mg capsule (Flomax) 0.4 mg PO QPM Urinary Issue 07/30/25
trazodone 50 mg tablet 50 mg PO HS Sleep 07/30/25
venlafaxine 150 mg 150 mg PO DAILY Depression 07/30/25
capsule,extended release 24 hr
(Effexor XR)
Review of Systems
-
Unable to obtain full review of systems at this time due to: Acuity
Vital Signs
Temp Pulse Resp BP Pulse Ox
98.6 F 102 17 153/76 92
08/03/25 12:00 08/03/25 09:44 08/03/25 07:45 08/03/25 09:44 08/03/25 07:45
Physical Exam
Exam
General: Well Developed, Well Nourished, No Apparent Distress and Comfortable
HEENT: Normocephalic, Anicteric, Moist Mucous Membranes and Atraumatic
Respiratory: Clear and Non Labored Respirations; Negative Wheezes, Rales or Rhonchi
Cardiac: S1/S2 and Regular Rhythm (tachycardic )
Breast: N/A
GI: Soft, Non Tender, Distended and Other (hypoactive bowel sounds)
Rectal: Deferred by Provider
Genito-urinary: Clear Urine
Musculoskeletal: No Clubbing, No Cyanosis and No Edema
Skin: Warm and Dry
Neuro: Other (somnolent/lethargic, arousable but AOx1 at most )
Psych: Confused
Results
WBC 10.0 10^3/uL (4.8-10.8) 08/02/25 04:22
Hgb 13.4 g/dL (13.0-18.0) 08/02/25 04:22
Hct 44.0 % (39.0-52.0) 08/02/25 04:22
MCV 96.3 fL (80.0-94.0) H 08/02/25 04:22
Plt Count 249 10^3/uL (130-400) 08/02/25 04:22
Absolute Neuts (auto) 7.9 10^3/uL (1.4-6.5) H 08/02/25 04:22
Sodium 142 mmol/L (135-145) 08/03/25 05:01
Potassium 3.5 mmol/L (3.5-5.1) 08/03/25 05:01
Chloride 107 mmol/L (98-107) 08/03/25 05:01
Carbon Dioxide 28 mmol/L (22-30) 08/03/25 05:01
BUN 18 mg/dl (9-20) 08/03/25 05:01
Creatinine 1.2 mg/dL (0.7-1.3) 08/03/25 05:01
Calcium 9.6 mg/dl (8.4-10.2) 08/03/25 05:01
Total Bilirubin 1.3 mg/dl (0.2-1.3) 07/31/25 09:54
AST 36 U/L (17-59) 07/31/25 09:54
ALT 15 U/L (0-50) 07/31/25 09:54
Alkaline Phosphatase 50 U/L (38-126) 07/31/25 09:54
Diagnostic Image Results:
CR Abdomen - 2 Views (08/02/2025):
IMPRESSION:
There is diffuse gaseous distention of the bowel which may represent ileus although it distal large bowel obstruction is possible. Further evaluation with dedicated CT abdomen pelvis may be considered.
CT Abd/pel Without Iv Or Oral (08/02/2025):
IMPRESSION:
Gaseous distention of the colon and moderate colonic stool. Similar compared to the previous abdominal radiographs. No suspicious area of colonic narrowing by CT to suggest a large bowel obstruction within the limitations of the lack of oral
contrast.
Mild urinary bladder wall thickening and fat stranding. Recommend correlation with a urinalysis.
Nephrolithiasis.
2.3 cm ovoid lesion in the head of the pancreas, indeterminate on this noncontrast exam. This could represent a duodenal diverticulum or pancreatic cyst and/or neoplasm. No evidence for pancreatic or bile duct dilatation. An abdominal MRI without
and with intravenous contrast could be performed for more definitive characterization.
Prior GI Procedures: None.
EGD: None.
Colonoscopy: None.
Assessment / Plan
-
Mark Casarez is a 65-year-old male with a past medical history of significant psychiatric conditions, on chronic anti-psychotics including [place], chronic pain syndrome, polysubstance use, multiple nutritional deficiencies who presented from [place]
following hospitalization for with altered mental status and electrolyte abnormalities. He was found to have significantly elevated lithium levels, as well as hypernatremia, DEANA, and presumed sepsis. Infectious workup has been negative so far,
electrolyte abnormalities have mostly corrected, and his lithium levels are being monitored. We were consulted for imaging abdominal distention and vomiting.
#Vomiting
#Abdominal Distention
#[place] Toxicity
#Chronic Anti-Psychotic use
#DEANA
#SIRS, presumed secondary to [place] toxicity
Agree that current distention/vomiting could be due to pseudoobstruction/Annabelel's, secondary to lithium/antipsychotic medication vs. less likely partial/complete obstruction given resolution of vomiting.
- Agree to c/w IVF, IV antiemetics as necessary
- Agree to proceed with MoM enema
- with resolution of vomiting and poor cooperation, would hold off on NGT at this time, though if symptoms persist may need to attempt placing again
- agree to c/w NPO and meds in applesauce
- Seen by speech, cleared for IDDSI 4 diet, however with vomiting and delirium pt was aspiration risk
- If pt cooperative taking meds as above, can consider trying oral contrast again if symptoms worsen or do not resolve
- Can consider neostigmine vs. mechanical decompression with colonoscope, however would caution neostigmine given significant med interactions and risk factors
- Repeat obs series in the AM after enema
- Will order C.diff testing
- DEANA/electrolytes per nephro/primary
- Psych following
- GI will follow
-
-
Thank you for consultation and allowing me to participate in the patient's care. Please call the collect on delivery clerk GI physician during the after hours with any questions or concerns.
[2025-08-03] MEDS: MYCOSTATIN ORAL SUSPENSION PO (14:37)
[2025-08-03] MEDS: LOPRESSOR 2.5 MG IV (15:37)
[2025-08-03 15:46] LABS: Hematocrit 45.7 % (39.0-52.0); Mean Corp Hgb Conc. 30.4 g/dL (33.0-37.0); Mean Corpuscular Volume 97.0 fL (80.0-94.0); Platelet Count 284 10^3/uL (130-400); Red Cell Dist. Width 15.6 % (11.5-14.5)
--- NOTE | 2025-08-03 16:54 | CM ---
Following up on Patient RN stated that patient is on a drip for his heart so not ready. Patient is from [place].
PLAN: Return when ready to [place].
--- NOTE | 2025-08-03 17:26 | PTCARENOTE ---
Pt converted to NSR HR now 80s. Notified MIKALA Uriarte. OK to stop Cardizem drip. Pt given Milk and Molasses enema. Pt able to release enema plus some small stool pieces after about [address] Wild and resident updated. vital signs
stable. no vomitting today.
[2025-08-03] MEDS: LOPRESSOR 50 MG PO (19:44)
[2025-08-03] MEDS: SENOKOT 8.6 MG PO (19:48)
[2025-08-03] MEDS: SINGULAIR 10 MG PO (19:48)
[2025-08-03] MEDS: LIPITOR 40 MG PO (19:48)
[2025-08-03] MEDS: MELATONIN 3 MG PO (19:48)
[2025-08-04] VITALS (11 sets, daily range): BP systolic 115–152; BP diastolic 54–103
--- NOTE | 2025-08-04 02:29 | DOWNTIME ---
There was a [employer] Client Product Marketing Director Downtime on 08/04/2025 from 0100 to 08/04/2025 at 0215. Downtime documentation of patient's care, including medication administrations, has been reconciled in the electronic record per guidelines. Refer to the
patient's paper chart under the miscellaneous tab to see printed paper medication records and downtime forms.
[2025-08-04] MEDS: SYNTHROID 50 MCG PO (04:44)
[2025-08-04 05:11] LABS: Hematocrit 43.5 % (39.0-52.0); Hemoglobin 13.6 g/dL (13.0-18.0); Mean Corp Hgb Conc. 31.3 g/dL (33.0-37.0); Mean Corpuscular Volume 95.0 fL (80.0-94.0); Platelet Count 314 10^3/uL (130-400); Red Cell Dist. Width 15.7 % (11.5-14.5)
[2025-08-04 05:34] LABS: Blood Urea Nitrogen 19 mg/dl (9-20); Calcium 9.8 mg/dl (8.4-10.2); Carbon Dioxide 26 mmol/L (22-30); Chloride 107 mmol/L (98-107); Estimated Creatinine Clearance 68 ml/min; Glucose 178 mg/dl (70-99); Potassium 3.8 mmol/L (3.5-5.1); Sodium 142 mmol/L (135-145); eGFR > 60.00
[2025-08-04] MEDS: ATROVENT NEBULES 0.5 MG INH ×2 (07:25→19:29)
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
[2025-08-04] MEDS: PROTONIX 40 MG PO (08:48)
[2025-08-04] MEDS: ELIQUIS 5 MG PO ×2 (08:48→20:00)
[2025-08-04] MEDS: ASPIR LOW (ENTERIC COATED) 81 MG PO (08:48)
[2025-08-04] MEDS: COLACE 100 MG PO ×2 (08:48→19:59)
[2025-08-04] MEDS: LOPRESSOR 50 MG PO ×2 (08:48→20:01)
[2025-08-04] MEDS: CARDIZEM CD 180 MG PO (08:48)
[2025-08-04] MEDS: MYCOSTATIN ORAL SUSPENSION 5 ML PO ×4 (08:48→20:08)
[2025-08-04] MEDS: DESENEX/MITRAZOL/ZEASORB 1 APPLIC TOPICAL ×2 (08:49→20:06)
[2025-08-04] MEDS: THIAMINE INJECTION 200 MG IV (08:49)
--- NOTE | 2025-08-04 09:07 | W.PN.GI.CBS2 ---
Today's Communication / Plan
-
see plan
Assessment / Plan
-
Mark Casarez is a 65-year-old male with a past medical history of significant psychiatric conditions, on chronic anti-psychotics including Cotter, chronic pain syndrome, polysubstance use, multiple nutritional deficiencies who presented from [place]
following hospitalization for SI with altered mental status and electrolyte abnormalities. He was found to have significantly elevated lithium levels, as well as hypernatremia, DEANA, and presumed sepsis. Infectious workup has been negative so far,
electrolyte abnormalities have mostly corrected, and his lithium levels are being monitored. We were consulted for imaging abdominal distention and vomiting.
#Vomiting
#Abdominal Distention
#Cotter Toxicity
#Chronic Anti-Psychotic use
#DEANA
#SIRS, presumed secondary to Cotter toxicity
Agree that current distention/vomiting could be due to pseudoobstruction/Annabelle's, secondary to lithium/antipsychotic medication vs. less likely partial/complete obstruction given resolution of vomiting.
- c/w IVF, IV antiemetics as necessary
- Had large bowel movements following MoM Enema
- pt remains distended, but improved from yesterday
- c/t observe for bowel movements
- pending repeat obs series -- if continuing to have bowel movements and obs series overall improved, can likely forgo continued imaging and proceed with clinical monitoring only unless symptoms change
- with resolution of vomiting and poor cooperation would hold off on NGT at this time
- agree to c/w NPO and meds in applesauce
- Seen by speech, cleared for IDDSI 4 diet, however with vomiting and delirium pt was aspiration risk
- If pt cooperative taking meds as above, can consider trying oral contrast again if symptoms worsen or do not resolve
- Can consider neostigmine vs. mechanical decompression with colonoscope, however would caution neostigmine given significant med interactions and risk factors
- agree to proceed with MR abd for pancreatic mass and MR Brain
- DEANA/electrolytes per nephro/primary
- Psych following
- GI will follow
Subjective
Subjective
Date of Service: August 04, 2025
Had a large bowel movement overnight. patient remains confused and minimally responsive/cooperative.
Objective
Data Reviewed
Laboratory Data:
Laboratory Results
08/04/25 04:42
08/04/25 04:42
Laboratory Results
Phosphorus 4.0 mg/dl (2.5-4.5) 07/31/25 09:54
Magnesium 1.9 mg/dl (1.6-2.3) 08/02/25 04:22
Total Bilirubin 1.3 mg/dl (0.2-1.3) 07/31/25 09:54
AST 36 U/L (17-59) 07/31/25 09:54
ALT 15 U/L (0-50) 07/31/25 09:54
Alkaline Phosphatase 50 U/L (38-126) 07/31/25 09:54
Vital Signs and I&O:
Vital Signs
Temp Pulse Resp BP Pulse Ox
98.6 F 78 16 137/75 91
08/04/25 03:00 08/04/25 07:25 08/04/25 07:25 08/04/25 04:39 08/03/25 20:54
I&O
08/03/25 08/04/25 08/05/25
06:59 06:59 06:59
Intake Total 1680 / 1680 960 / 960
Output Total 1000 / 1000 350 / 350
Balance 680 / 680 610 / 610
Physical Exam
Physical Exam
HEENT: Anicteric and Moist mucous membranes
Cardiology: Normal Sinus Rhythm, S1 and S2
Pulmonary: Clear
GI: Soft, Distended, Non Tender and Normal Bowel Sounds
Neuro: Other (intermittent BL tremors with tardive movements of the face/mouth )
--- NOTE | 2025-08-04 09:16 | W.PN.CD ---
Addendum entered and electronically signed by Selvin Figueredo MD 08/04/25 11:47:
I saw and evaluated the patient, and I provided the substantive portion of the medical decision making.
I reviewed and agree with the note byLeni Clemons and it accurately reflects our care.
I personally performed the medical decision making of the this encounter and my assessment and plan is below:
He is unable to provide history due to mental status. On exam, he is lethargic, has a resting tremor. RRR normal S1-S2 lungs are clear to auscultation bilaterally.
Atrial flutter, now back in normal rhythm, continue beta-randi and diltiazem. Continue apixaban 5 mg p.o. twice daily. Unless a compelling reason for aspirin exists would stop aspirin.
Hypertension, controlled with beta-randi and diltiazem
Change in mental status, care per medicine, resident in the room with me he states this is better than he presented on admission but might be more lethargic than yesterday. Workup as per Dr. Morrell and team.
No further cardiac recommendations, will see again at your request.
Original Note:
Today's Communication / Plan
-
Now in SR. Continue current PO metoprolol and diltiazem. On Eliquis for OAC.
Impression / Plan
-
I/P: 65M with hypertension, hypercholesterolemia, hypothyroidism, asthma, prior EtOH abuse, prior heroin abuse, bipolar disorder, and major depressive disorder with prior suicidal ideation (status post electroconvulsive therapy) presented to the
emergency department on 07/30/2025 with change in mental status.
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
Atrial flutter, type unknown
- now in SR. Continue metoprolol and diltiazem at current doses.
- [id number]: Score 2 (HTN, age 65-74); Apixaban 5mg BID for AC started yesterday
Abdominal pain
-CTAP with no bowel obstruction, pancreas lesion present
-GI on consult
DEANA, resolved, briefly received dialysis
Change in mental status:
-Likely in the setting hypernatremia, lithium toxicity, and medication side effect
-on my assessment today, he is lethargic, but opens eyes to voice and follows some simple commands. He is not answering my questions. Per nursing, not a change.
Abnormal troponin, nonischemic myocardial injury in the setting of acute illness and DEANA
Hypercholesterolemia, atorvastatin on hold, unclear why he is on ASA
Hypernatremia- resolved
Hypercalcemia- resolved
Major depressive disorder with bipolar disorder, per primary
MOLLY, on BiPAP
Physical Exam
Vital Signs/Labs
Vital Signs
Temp Pulse Resp BP Pulse Ox
98.6 F 78 16 137/75 91
08/04/25 03:00 08/04/25 07:25 08/04/25 07:25 08/04/25 04:39 08/03/25 20:54
08/04/25 04:42
08/04/25 04:42
Magnesium 1.9 mg/dl (1.6-2.3) 08/02/25 04:22
Free T4 1.16 ng/dl (0.78-2.19) 07/30/25 16:51
07/30/25
08:16
[id number] Pept 72.2
Physical Exam
Constitutional: No acute distress
EENT: Anicteric
Cardiovascular: Rhythm & rate is regular and Pedal edema present (mild BLE)
Respiratory: Respiratory effort normal
GI: Distention present
Neuro/Psych: Other (opens eyes to voice, follows some simple commands, not answering questions- no change per nursing)
Data Reviewed
-
Date of Service: August 04, 2025
EKG: Other (Telemetry: SR since last evening)
Labs: Labs Reviewed by me
--- NOTE | 2025-08-04 11:09 | W.PN.UPDATE ---
Update Note
Progress Note Update
I saw and evaluated the patient. I reviewed the resident�s note and agree with findings and plan as documented in the resident�s note.
Pt currently unable to answer questions.
Gen: NAD, awake and alert but not oriented
Eyes: EOMI, PERRLA, no scleral icterus.
Neck: supple.
CV: remains RRR, +S1/S2, no m/r/g.
Resp: continues to remain CTAB, no rales, wheezes, or rhonchi.
Abd: +BS, soft, NT, obese abdomen
Skin: No rashes.
Neuro: CN 2-12 intact, non-focal, mild twitching of extremities
Psych: calm
07/30/25 09:22 Blood/Venous Blood Culture - Final
No Growth - Final Report
07/30/25 08:16 Blood/Venous Blood Culture - Final
No Growth - Final Report
07/30/25 08:16 Urine Urine Culture - Final
NO GROWTH
07/30/25 08:16 Nasal Swab Influenza Types A & B (JAYDE) - Final
Negative for Influenza A & B, NAAT
Negative results must be combined with clinical observations
and patient history.
Nucleic Acid Amplification test (NAAT)performed on the
[employer] platform.
CXR on admission: moderate elevation of the right hemidiaphragm with minimal basilar atelectasis. No focal airspace disease or pleural effusion.
CXR: No acute disease of the chest.
EEG 08/02/25: Mild to moderately abnormal EEG for age mild diffuse bihemispheric slowing. This study was suggestive of diffuse cortical dysfunction without focal abnormality. Movements demonstrated were not associated with epileptiform activity. No
seizures were recorded. Compared with the prior study, there was mild improvement in that a theta background was briefly demonstrated. If concerns remain regarding seizures, consideration for prolonged EEG recording may be given. Clinical
correlation is advised.
CT A/P: Gaseous distention of the colon and moderate colonic stool. Similar compared to the previous abdominal radiographs. No suspicious area of colonic narrowing by CT to suggest a large bowel obstruction within the limitations of the lack of oral
contrast. Mild urinary bladder wall thickening and fat stranding. Recommend correlation with a urinalysis. Nephrolithiasis. 2.3 cm ovoid lesion in the head of the pancreas, indeterminate on this noncontrast exam. This could represent a duodenal
diverticulum or pancreatic cyst and/or neoplasm. No evidence for pancreatic or bile duct dilatation. An abdominal MRI without and with intravenous contrast could be performed for more definitive characterization.
Annabelle syndrome/colonic ileus:
-pt had multiple episodes of vomiting
-seen by surgery, no surgical intervention
-CT A/P above and without obstruction
-GI following
-cont enemas PRN, miralax
-for MRI abd for pancreatic lesion
-note pt with large BM O/N 08/03-08/04
Acute toxic encephalopathy due to lithium toxicity and acute metabolic encephalopathy due to DEANA:
-was obtunded on admission, now awake and alert
-holding [place], Li level now normal
-psych/renal following
-DEANA and hypernatremia have now resolved with hypotonic IVFs
-EEG above, no seizure activity
-tremor and tardive dyskinesia due to lithium
-neuro following
-check MRI brain
Atrial flutter, new onset:
-was on Cardizem gtt, now transitioned to PO BB/Cardizem
-Eliquis started
SIRS with acute organ dysfunction due to lithium toxicity:
-UCx NG and UTI has been ruled out
-Flu/COVID NEG
-BCxs NGTD
-continue to doubt infection at this point. Suspect fever was due to lithium toxicity.
-was on Zosyn, stopped 08/01/25
Other problems:
Hypokalemia, resolved
Hypercalcemia, resolved
Troponin of 0.051 is of no clinical significance and was due to acute kidney injury
HLD: statin on hold
Essential HTN: cont BB/CCB
Hypothyroidism: cont levothyroxine
Mental health disorder: all home psychotropic medications on hold, psych following
Prostate disease
Obesity due to excess calories
FULL/heparin
--- NOTE | 2025-08-04 11:21 | W.PN.GI.CBS2 ---
Today's Communication / Plan
-
Check xray to monitor response to enema
Miralax started
No need to check C diff with no diarrhea
If no significant BM, given another milk and molasses enema
If still refractory, try neostigmine
Assessment / Plan
-
Mark Casarez is a 65-year-old male with a past medical history of significant psychiatric conditions, on chronic anti-psychotics including Ger[place], chronic pain syndrome, polysubstance use, multiple nutritional deficiencies who presented from [place]
following hospitalization for SI with altered mental status and electrolyte abnormalities. He was found to have significantly elevated lithium levels, as well as hypernatremia, DEANA, and presumed sepsis. Infectious workup has been negative so far,
electrolyte abnormalities have mostly corrected, and his lithium levels are being monitored. We were consulted for imaging abdominal distention and vomiting.
Impression:
Colonic distention likely Ogilvies
#Vomiting
#Abdominal Distention
#[place] Toxicity
#Chronic Anti-Psychotic use
#DEANA
#SIRS, presumed secondary to [place] toxicity
Agree that current distention/vomiting could be due to pseudoobstruction/Annabelle's, secondary to lithium/antipsychotic medication vs. less likely partial/complete obstruction given resolution of vomiting.
Subjective
Subjective
Date of Service: August 04, 2025
Pt nonverbal. Has liquid brown BMs recorded overnight
Objective
Data Reviewed
Laboratory Data:
Laboratory Results
08/04/25 04:42
08/04/25 04:42
Laboratory Results
Phosphorus 4.0 mg/dl (2.5-4.5) 07/31/25 09:54
Magnesium 1.9 mg/dl (1.6-2.3) 08/02/25 04:22
Total Bilirubin 1.3 mg/dl (0.2-1.3) 07/31/25 09:54
AST 36 U/L (17-59) 07/31/25 09:54
ALT 15 U/L (0-50) 07/31/25 09:54
Alkaline Phosphatase 50 U/L (38-126) 07/31/25 09:54
Vital Signs and I&O:
Vital Signs
Temp Pulse Resp BP Pulse Ox
99.0 F 78 16 137/75 93
08/04/25 07:34 08/04/25 07:25 08/04/25 07:25 08/04/25 04:39 08/04/25 08:50
I&O
08/03/25 08/04/25 08/05/25
06:59 06:59 06:59
Intake Total 1680 / 1680 960 / 960
Output Total 1000 / 1000 350 / 350
Balance 680 / 680 610 / 610
Physical Exam
Physical Exam
GI: Soft, Distended, Non Tender and Other (Positive high pitched bowel sounds)
[2025-08-04] MEDS: D5W 1000 IV (11:54)
--- NOTE | 2025-08-04 13:06 | W.PN.UPDATE ---
Update Note
Progress Note Update
Called with the patient's sister, who stated she works in ED billing and sends the patient money monthly to allow him to eat out. She stated she some person 1 year ago and last spoke with him over the phone 4 to 6 months ago. At that time, she
said that he seemed with it most the time. They could have accommodation, but sometimes he was not with it during conversation. She states that he does not try to reach out, but is reassuring when he reaches out for money that he is doing okay.
She endorses he has had chronic constipation. She denies knowing of other GI past medical history.
She stated that before he was at [facility], he lived in a 'flop' house, which he paid with Social Security disability income.
The address of the low income housing is [address] [place] [address]. Their phone number is [phone].
She is not sure how long he was at [facility], stating maybe a month. She was apprised he went to a [facility] afterwards, suggesting he did not live in fci long-term.
She says that his friend Yash Mccoycolt ([phone]) saw him in the last few days, and would have more current information.
--- NOTE | 2025-08-04 14:01 | PTCARENOTE ---
Per MRI, pt will need several XR to clear for tests. Pt also for ordered obstruction series. D/W Dr. Wild and Dr. Lisa guerra to obtain obstruction series with all other XR. Dr. Gonzalez (primary resident) also updated on need for XR/ obstruction
series.
--- NOTE | 2025-08-04 15:42 | PTCARENOTE ---
Per Dr. Gonzalez, pt is now clear for MRI without XR. Awaiting call from MRI and XR for obstruction series.
--- NOTE | 2025-08-04 15:43 | PTCARENOTE ---
Caring for pt throughout the day. Assessment and care as documented. sister updated via phone. Safe environment maintained.
--- NOTE | 2025-08-04 16:40 | PTCARENOTE ---
Pt to XR via stretcher.
[2025-08-04] MEDS: FLOMAX PO (17:22)
[2025-08-04] MEDS: MELATONIN 3 MG PO (19:59)
[2025-08-04] MEDS: LIPITOR 40 MG PO (20:00)
[2025-08-04] MEDS: SINGULAIR 10 MG PO (20:00)
[2025-08-04] MEDS: SENOKOT 8.6 MG PO (20:01)
[2025-08-05] VITALS (8 sets, daily range): BP systolic 88–130; BP diastolic 60–108; PULSE 2–74
[2025-08-05] MEDS: D5W 1000 IV ×2 (00:35→15:30)
[2025-08-05] MEDS: SYNTHROID PO (04:03)
[2025-08-05 04:27] LABS: Hematocrit 40.5 % (39.0-52.0); Hemoglobin 12.9 g/dL (13.0-18.0); Mean Corp Hgb Conc. 31.9 g/dL (33.0-37.0); Mean Corpuscular Volume 95.1 fL (80.0-94.0); Nucleated Red Blood Cells % 0 % (-); Platelet Count 319 10^3/uL (130-400); Red Cell Dist. Width 15.7 % (11.5-14.5)
[2025-08-05 04:49] LABS: ALT (SGPT) 20 U/L (0-50); AST (SGOT) 23 U/L (17-59); Albumin 3.5 g/dl (3.5-5.0); Alkaline Phosphatase 58 U/L (38-126); Blood Urea Nitrogen 18 mg/dl (9-20); Calcium 10.3 mg/dl (8.4-10.2); Carbon Dioxide 27 mmol/L (22-30); Chloride 106 mmol/L (98-107); Estimated Creatinine Clearance 68 ml/min; Glucose 152 mg/dl (70-99); Potassium 3.5 mmol/L (3.5-5.1); Sodium 139 mmol/L (135-145); Total Protein 6.7 g/dl (6.3-8.2); eGFR > 60.00
[2025-08-05] MEDS: ATROVENT NEBULES 0.5 MG INH ×2 (07:47→19:44)
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
--- NOTE | 2025-08-05 08:51 | W.PN.UPDATE ---
Update Note
Progress Note Update
I saw and evaluated the patient. I reviewed the resident�s note and agree with findings and plan as documented in the resident�s note.
Patient sleeping. When aroused he is not answering questions.
Gen: NAD, awake and alert but not oriented
Eyes: EOMI, PERRLA, no scleral icterus.
Neck: supple.
CV: Continues to remain RRR, +S1/S2, no m/r/g.
Resp: CTAB, no rales, wheezes, or rhonchi.
Abd: +BS, soft, NT, obese abdomen with significant distention
Skin: No rashes.
Neuro: CN 2-12 intact, non-focal, mild twitching of extremities
Psych: calm
07/30/25 09:22 Blood/Venous Blood Culture - Final
No Growth - Final Report
07/30/25 08:16 Blood/Venous Blood Culture - Final
No Growth - Final Report
07/30/25 08:16 Urine Urine Culture - Final
NO GROWTH
07/30/25 08:16 Nasal Swab Influenza Types A & B (JAYDE) - Final
Negative for Influenza A & B, NAAT
Negative results must be combined with clinical observations
and patient history.
Nucleic Acid Amplification test (NAAT)performed on the
[employer] NOW platform.
CXR on admission: moderate elevation of the right hemidiaphragm with minimal basilar atelectasis. No focal airspace disease or pleural effusion.
CXR: No acute disease of the chest.
EEG 08/02/25: Mild to moderately abnormal EEG for age mild diffuse bihemispheric slowing. This study was suggestive of diffuse cortical dysfunction without focal abnormality. Movements demonstrated were not associated with epileptiform activity. No
seizures were recorded. Compared with the prior study, there was mild improvement in that a theta background was briefly demonstrated. If concerns remain regarding seizures, consideration for prolonged EEG recording may be given. Clinical
correlation is advised.
CT A/P: Gaseous distention of the colon and moderate colonic stool. Similar compared to the previous abdominal radiographs. No suspicious area of colonic narrowing by CT to suggest a large bowel obstruction within the limitations of the lack of oral
contrast. Mild urinary bladder wall thickening and fat stranding. Recommend correlation with a urinalysis. Nephrolithiasis. 2.3 cm ovoid lesion in the head of the pancreas, indeterminate on this noncontrast exam. This could represent a duodenal
diverticulum or pancreatic cyst and/or neoplasm. No evidence for pancreatic or bile duct dilatation. An abdominal MRI without and with intravenous contrast could be performed for more definitive characterization.
OBST series 08/04/25: Persistent gaseous distention of the colon. This appears greatest at the level of the transverse colon measuring 13 cm in diameter, increased compared to 9 cm abdominal radiographs from 08/02/2025. No appreciable intraperitoneal
free air.
MRI brain 08/05/25: No acute intracranial abnormality noted.
Annabelle syndrome/colonic ileus:
-pt had multiple episodes of vomiting
-seen by surgery, no surgical intervention
-CT A/P above and without obstruction
-GI following
-cont enemas PRN, miralax
-will need MRI abd for pancreatic lesion at some point but, as per MRI department, patient cannot lay still enough to have this test done at this time
-note pt with large BM O/N 08/03-08/04
-for repeat enema today, repeat OBS series tomorrow
Acute toxic encephalopathy due to lithium toxicity and acute metabolic encephalopathy due to DEANA:
-was obtunded on admission, now awake and alert
-holding [place], Li level now normal
-psych/renal following
-DEANA and hypernatremia have now resolved with hypotonic IVFs
-EEG above, no seizure activity
-tremor and tardive dyskinesia due to lithium
-neuro following
-MRI brain above (limited due to motion, 5 min study) without acute intracranial abnormality
-Case discussed with Dr. Dumont over [employer] today. Dr. Dumont does not recommend any further workup for the patient's acute toxic encephalopathy, including, but not limited to, lumbar puncture. His feeling is that his toxic metabolic
encephalopathy is due to lithium toxicity and has persisted despite lithium levels now being normal.
Atrial flutter, new onset:
-was on Cardizem gtt, now transitioned to PO BB/Cardizem
-Eliquis started
SIRS with acute organ dysfunction due to lithium toxicity:
-UCx NG and UTI has been ruled out
-Flu/COVID NEG
-BCxs NGTD
-continue to doubt infection at this point. Suspect fever was due to lithium toxicity.
-was on Zosyn, stopped 08/01/25
Other problems:
Hypokalemia, resolved
Hypercalcemia, resolved
Troponin of 0.051 is of no clinical significance and was due to acute kidney injury
HLD: statin on hold
Essential HTN: cont BB/CCB
Hypothyroidism: cont levothyroxine
Mental health disorder: all home psychotropic medications on hold, psych following
Prostate disease
Obesity due to excess calories
FULL/Eliquis
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
--- NOTE | 2025-08-05 10:09 | W.PN.GI.CBS2 ---
Today's Communication / Plan
-
Will give another millk and molasses enema. F/U xray still shows colonic distention, transverse colon 13cm
He responded to first enema with large BM
Hopefully colonic ileus/Ogilvies resolves with correction of metabolic derangement, ARF, Li toxicity, which were all likely contributing
Check repeat OBS series tomorrow
Eventual MRI abd for 2.3cm lesion head of pancreas- cyst vs diverticulum vs neoplasm
Assessment / Plan
-
Mark Casarez is a 65-year-old male with a past medical history of significant psychiatric conditions, on chronic anti-psychotics including [place], chronic pain syndrome, polysubstance use, multiple nutritional deficiencies who presented from [place]
following hospitalization for SI with altered mental status and electrolyte abnormalities. He was found to have significantly elevated lithium levels, as well as hypernatremia, DEANA, and presumed sepsis. Infectious workup has been negative so far,
electrolyte abnormalities have mostly corrected, and his lithium levels are being monitored. We were consulted for imaging abdominal distention and vomiting.
Impression:
Colonic distention/Annabelle's
Hypernatremia. Na 156
Li toxicity
ARF
Pancreatic lesion
#Vomiting
#Abdominal Distention
#[place] Toxicity
#Chronic Anti-Psychotic use
#DEANA
#SIRS, presumed secondary to [place] toxicity
Subjective
Subjective
Date of Service: August 05, 2025
Pt more alert today. Speaking incoherently
Objective
Data Reviewed
Laboratory Data:
Laboratory Results
08/05/25 04:00
08/05/25 04:00
Laboratory Results
Phosphorus 4.0 mg/dl (2.5-4.5) 07/31/25 09:54
Magnesium 1.9 mg/dl (1.6-2.3) 08/02/25 04:22
Total Bilirubin 0.7 mg/dl (0.2-1.3) 08/05/25 04:00
AST 23 U/L (17-59) 08/05/25 04:00
ALT 20 U/L (0-50) 08/05/25 04:00
Alkaline Phosphatase 58 U/L (38-126) 08/05/25 04:00
Vital Signs and I&O:
Vital Signs
Temp Pulse Resp BP Pulse Ox
98 F 7 18 125/95 94
08/05/25 07:32 08/05/25 08:26 08/05/25 08:26 08/05/25 04:12 08/04/25 21:39
I&O
08/04/25 08/05/25 08/06/25
06:59 06:59 06:59
Intake Total 960 / 960
Output Total 350 / 350 750 / 750 300 / 300
Balance 610 / 610 -750 / -750 -300 / -300
Physical Exam
Physical Exam
GI: Soft, Distended and Non Tender
[2025-08-05] MEDS: CARDIZEM CD 180 MG PO (10:37)
[2025-08-05] MEDS: COLACE 100 MG PO ×2 (10:38→20:55)
[2025-08-05] MEDS: LOPRESSOR 50 MG PO ×2 (10:43→20:56)
[2025-08-05] MEDS: ELIQUIS 5 MG PO ×2 (10:44→20:56)
[2025-08-05] MEDS: THIAMINE INJECTION 200 MG IV (10:45)
[2025-08-05] MEDS: MYCOSTATIN ORAL SUSPENSION 5 ML PO ×3 (10:45→20:57)
[2025-08-05] MEDS: PROTONIX 40 MG PO (10:45)
[2025-08-05] MEDS: DESENEX/MITRAZOL/ZEASORB 1 APPLIC TOPICAL ×2 (10:46→20:56)
[2025-08-05] MEDS: ASPIR LOW (ENTERIC COATED) PO (10:47)
[2025-08-05] MEDS: MYCOSTATIN ORAL SUSPENSION PO (12:05)
--- NOTE | 2025-08-05 13:43 | W.PN.UPDATE ---
Update Note
Progress Note Update
asked to see patient out of concern that he is not at the baseline reported by a previous psychiatrist. Pt is obtunded, barely able to be roused. Abdomen distended, nurse repports that he has not been able to were CPAP. Currently delirious. Cannot
see a pscyhiatric etiology here, or a role for psychotropics at present.
--- NOTE | 2025-08-05 15:27 | CM ---
Following up on Patient. RN stated that patient is confused today and had came back from a procedure.
CHRIS Urbano spoke to Melody at [facility] #[phone] to confirm that NO PASRR is needed for return and NO Level II is needed, patient would just have to come back with insurance authorization.
PLAN: Return to [facility] with insurance Auth when ready.
[2025-08-05] MEDS: FLOMAX 0.4 MG PO (17:28)
[2025-08-05] MEDS: LIPITOR 40 MG PO (20:56)
[2025-08-05] MEDS: SINGULAIR 10 MG PO (20:56)
[2025-08-05] MEDS: MELATONIN 3 MG PO (20:56)
[2025-08-05] MEDS: SENOKOT 8.6 MG PO (20:57)
--- NOTE | 2025-08-05 22:20 | RESPNOTE ---
Patient placed on BiPAP 12/8 21% as ordered, as well as a trending nocturnal SpO2. Full BiPAP documentation in [facility].
[2025-08-06] VITALS (9 sets, daily range): BP systolic 102–121; BP diastolic 60–79; PULSE 2–66
[2025-08-06] MEDS: D5W 1000 IV ×2 (04:09→13:58)
[2025-08-06 04:46] LABS: Hematocrit 39.4 % (39.0-52.0); Hemoglobin 12.3 g/dL (13.0-18.0); Mean Corp Hgb Conc. 31.2 g/dL (33.0-37.0); Mean Corpuscular Volume 94.3 fL (80.0-94.0); Nucleated Red Blood Cells % 0 % (-); Platelet Count 337 10^3/uL (130-400); Red Cell Dist. Width 15.9 % (11.5-14.5)
[2025-08-06 05:44] LABS: ALT (SGPT) 22 U/L (0-50); AST (SGOT) 25 U/L (17-59); Albumin 3.6 g/dl (3.5-5.0); Alkaline Phosphatase 56 U/L (38-126); Blood Urea Nitrogen 15 mg/dl (9-20); Calcium 9.7 mg/dl (8.4-10.2); Carbon Dioxide 24 mmol/L (22-30); Chloride 106 mmol/L (98-107); Estimated Creatinine Clearance 68 ml/min; Glucose 145 mg/dl (70-99); Potassium 3.2 mmol/L (3.5-5.1); Sodium 137 mmol/L (135-145); Total Protein 6.5 g/dl (6.3-8.2); eGFR > 60.00
[2025-08-06] MEDS: ATROVENT NEBULES 0.5 MG INH ×2 (07:19→19:50)
--- NOTE | 2025-08-06 07:56 | W.PN.GI.CBS2 ---
Addendum entered and electronically signed by Marija Perdomo MD 08/06/25 13:01:
I saw and evaluated the patient. I reviewed the resident�s note and agree with findings and plan as documented in the resident�s note.
Pt with abdominal distention which is stable. Doesn't state any pain but not coversant
abd: distended but soft
xray: improvement in colon distention (viewed films) with only a small amount of stool right colon
impression:
Ogilvies syndrome which is improved
plan:
1. can't take liquid miralax. Neurology ok with me using mestinon or dulcolax for a daily regimen. will use mestinon until at baseline.
2. Improved by xray would not do any further intervention at this time.
Original Note:
Today's Communication / Plan
-
see plan
Assessment / Plan
-
Mark Casarez is a 65-year-old male with a past medical history of significant psychiatric conditions, on chronic anti-psychotics including [place], chronic pain syndrome, polysubstance use, multiple nutritional deficiencies who presented from [place]
following hospitalization for SI with altered mental status and electrolyte abnormalities. He was found to have significantly elevated lithium levels, as well as hypernatremia, DEANA, and presumed sepsis. Infectious workup has been negative so far,
electrolyte abnormalities have mostly corrected, and his lithium levels are being monitored. We were consulted for imaging abdominal distention and vomiting.
#Colonic Distention/Annabelle's
#[place] Toxicity (resolved)
#Chronic Anti-Psychotic use
#DEANA
#Hypernatremia
#2.3cm Pancreatic Lesion
- f/u abd xray much improved from prior, though still with large stool in R side colon
- pt unable to swallow miralax as he does not swallow thin liquids, though he will swallow meds in apple sauce without issue
- will give dulcolax instead to encourage BMs
- pt remains altered; further f/u per primary team/psych
- follow up MRI for pancreatic lesion if possible
- repeat obs series tomorrow to track improvement
Subjective
Subjective
Date of Service: August 06, 2025
Patient was more awake and alert this morning. he had recently had a bowel movement. He has no acute complaints. He is still confused and minimally responsive.
Objective
Data Reviewed
Laboratory Data:
Laboratory Results
08/06/25 04:22
08/06/25 04:22
Laboratory Results
Phosphorus 4.0 mg/dl (2.5-4.5) 07/31/25 09:54
Magnesium 1.9 mg/dl (1.6-2.3) 08/02/25 04:22
Total Bilirubin 0.5 mg/dl (0.2-1.3) 08/06/25 04:22
AST 25 U/L (17-59) 08/06/25 04:22
ALT 22 U/L (0-50) 08/06/25 04:22
Alkaline Phosphatase 56 U/L (38-126) 08/06/25 04:22
Vital Signs and I&O:
Vital Signs
Temp Pulse Resp BP Pulse Ox
98.4 F 74 18 120/69 96
08/06/25 07:00 08/06/25 07:20 08/06/25 07:20 08/06/25 07:00 08/06/25 07:20
I&O
08/05/25 08/06/25 08/07/25
06:59 06:59 06:59
Intake Total 0 / 0
Output Total 750 / 750 1250 / 1250
Balance -750 / -750 -1250 / -1250
Physical Exam
Physical Exam
HEENT: Anicteric
Cardiology: Normal Sinus Rhythm, S1 and S2
Pulmonary: Clear
GI: Soft and Distended
Extremities: No Edema and Warm
--- NOTE | 2025-08-06 08:03 | W.PN.UPDATE ---
Update Note
Progress Note Update
I saw and evaluated the patient. I reviewed the resident�s note and agree with findings and plan as documented in the resident�s note.
Pt awake and able to state his name but nothing else.
Gen: NAD, AAOx1, NCAT
Eyes: EOMI, PERRLA, no scleral icterus.
Neck: supple.
CV: RRR, +S1/S2, no m/r/g.
Resp: CTAB anteriorly, no rales, wheezes, or rhonchi.
Abd: remains +BS, soft, NT, obese abdomen with significant distention
Skin: No rashes.
Neuro: CN 2-12 intact, non-focal, mild twitching of extremities
Psych: calm
07/30/25 09:22 Blood/Venous Blood Culture - Final
No Growth - Final Report
07/30/25 08:16 Blood/Venous Blood Culture - Final
No Growth - Final Report
07/30/25 08:16 Urine Urine Culture - Final
NO GROWTH
07/30/25 08:16 Nasal Swab Influenza Types A & B (JAYDE) - Final
Negative for Influenza A & B, NAAT
Negative results must be combined with clinical observations
and patient history.
Nucleic Acid Amplification test (NAAT)performed on the
[employer] NOW platform.
CXR on admission: moderate elevation of the right hemidiaphragm with minimal basilar atelectasis. No focal airspace disease or pleural effusion.
CXR: No acute disease of the chest.
EEG 08/02/25: Mild to moderately abnormal EEG for age mild diffuse bihemispheric slowing. This study was suggestive of diffuse cortical dysfunction without focal abnormality. Movements demonstrated were not associated with epileptiform activity. No
seizures were recorded. Compared with the prior study, there was mild improvement in that a theta background was briefly demonstrated. If concerns remain regarding seizures, consideration for prolonged EEG recording may be given. Clinical
correlation is advised.
CT A/P: Gaseous distention of the colon and moderate colonic stool. Similar compared to the previous abdominal radiographs. No suspicious area of colonic narrowing by CT to suggest a large bowel obstruction within the limitations of the lack of oral
contrast. Mild urinary bladder wall thickening and fat stranding. Recommend correlation with a urinalysis. Nephrolithiasis. 2.3 cm ovoid lesion in the head of the pancreas, indeterminate on this noncontrast exam. This could represent a duodenal
diverticulum or pancreatic cyst and/or neoplasm. No evidence for pancreatic or bile duct dilatation. An abdominal MRI without and with intravenous contrast could be performed for more definitive characterization.
OBST series 08/04/25: Persistent gaseous distention of the colon. This appears greatest at the level of the transverse colon measuring 13 cm in diameter, increased compared to 9 cm abdominal radiographs from 08/02/2025. No appreciable intraperitoneal
free air.
MRI brain 08/05/25: No acute intracranial abnormality noted.
OBST series 08/06/25: Gaseous distention of large and small bowel again seen throughout, perhaps slightly decreased large bowel distention. No findings to suggest free air.
[place] syndrome/colonic ileus:
-pt had multiple episodes of vomiting
-seen by surgery, no surgical intervention
-CT A/P above and without obstruction
-GI following
-cont enemas PRN, miralax
-will need MRI abd for pancreatic lesion at some point but, as per MRI department, patient cannot lay still enough to have this test done at this time
-note pt with large BM O/N 08/03-08/04
-s/p repeat enema yesterday with BM
-repeat OBS series today above, slightly improved
Acute toxic encephalopathy due to lithium toxicity and acute metabolic encephalopathy due to DEANA:
-was obtunded on admission, now awake and alert
-holding [place], Li level now normal
-psych/renal following
-DEANA and hypernatremia have now resolved with hypotonic IVFs
-EEG above, no seizure activity
-tremor and tardive dyskinesia due to lithium
-neuro following
-MRI brain above (limited due to motion, 5 min study) without acute intracranial abnormality
-[facility] Dumont does not recommend any further workup for the patient's acute toxic encephalopathy, including, but not limited to, lumbar puncture. His feeling is that his toxic metabolic
encephalopathy is due to lithium toxicity and has persisted despite lithium levels now being normal. Neurology signed off 08/05/25.
-nocturnal pulse ox with only 1 desat event
Atrial flutter, new onset:
-was on Cardizem gtt, now transitioned to PO BB/Cardizem
-Eliquis started
SIRS with acute organ dysfunction due to lithium toxicity:
-UCx NG and UTI has been ruled out
-Flu/COVID NEG
-BCxs NGTD
-continue to doubt infection at this point. Suspect fever was due to lithium toxicity.
-was on Zosyn, stopped 08/01/25
Other problems:
Hypokalemia, resolved
Hypercalcemia, resolved
Troponin of 0.051 is of no clinical significance and was due to acute kidney injury
HLD: statin on hold
Essential HTN: cont BB/CCB
Hypothyroidism: cont levothyroxine
Mental health disorder: all home psychotropic medications on hold, psych following
Prostate disease
Obesity due to excess calories
FULL/Eliquis
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
[2025-08-06] MEDS: PROTONIX 40 MG PO (08:50)
[2025-08-06] MEDS: ELIQUIS 5 MG PO ×2 (08:50→20:46)
[2025-08-06] MEDS: MYCOSTATIN ORAL SUSPENSION 5 ML PO ×4 (08:50→21:19)
[2025-08-06] MEDS: CARDIZEM CD 180 MG PO (08:50)
[2025-08-06] MEDS: LOPRESSOR 50 MG PO ×2 (08:51→21:19)
[2025-08-06] MEDS: THIAMINE INJECTION 200 MG IV (08:51)
[2025-08-06] MEDS: SYNTHROID 50 MCG PO (08:52)
[2025-08-06] MEDS: COLACE 100 MG PO ×2 (08:52→20:46)
[2025-08-06] MEDS: DESENEX/MITRAZOL/ZEASORB 1 APPLIC TOPICAL ×2 (08:52→20:48)
[2025-08-06] MEDS: KCL 270 MEQ IV (09:18)
--- NOTE | 2025-08-06 13:29 | W.PN.UPDATE ---
Addendum entered and electronically signed by Reji Guzmán MD 08/06/25 15:03:
not currently on any psychotropics, I had read chart incorrectly. nothing to reduce. puzzling degree of impairment, clearly not related to psychotropics.
Original Note:
Update Note
Progress Note Update
pt seen for assessment. remains barely responsive to questioning; cannot give name or where he is. says 'fine' when asked how he is feeling, and 'no' when asked if he is in any pain. unclear reason for this altered mental state; at this point would
reduce sedating psychotropics; reduce seroquel to 300 hs, reduce lithium to 300 mg hs. will follow through weekend.
--- NOTE | 2025-08-06 14:09 | W.PN.UPDATE ---
Update Note
Progress Note Update
PMH
Per a consulting team, a speech therapist informed them of reading pancreatic cancer in his nursing transfer note. On review of the patient's nursing transfer note, prostate cancer was noted, and no pancreatic cancer was noted.
Diet/dysphagia
Speech evaluate the patient and recommended continued n.p.o., as he has poor feeding skills and ability to retrieve liquids despite various presentation methods. Tolerated small amounts of pur�e but overall unsafe for p.o. intake. Would allow
crushed meds in pur�e. Speech will closely follow
[2025-08-06] MEDS: MESTINON 30 MG PO ×2 (15:46→21:18)
--- NOTE | 2025-08-06 16:00 | PTCARENOTE ---
Assumed care of patient at 1500. Nursing assessment completed and as documented. Patient able to take crushed meds in applesauce with encouragement to swallow, see MAR. Zamorano catheter draining ai urine, STAT lock changed. Repositioned, call hogue
within reach, care ongoing.
--- NOTE | 2025-08-06 16:19 | CM ---
Pt not cleared for discharge; return to [facility] when medically stable; will need auth.
[2025-08-06] MEDS: FLOMAX 0.4 MG PO (17:26)
[2025-08-06] MEDS: MELATONIN 3 MG PO (21:18)
[2025-08-06] MEDS: LIPITOR 40 MG PO (21:19)
[2025-08-06] MEDS: SINGULAIR 10 MG PO (21:19)
[2025-08-06] MEDS: SENOKOT 8.6 MG PO (21:19)
[2025-08-07] VITALS (8 sets, daily range): BP systolic 100–145; BP diastolic 58–73; PULSE 2–74; BMI 37.6
[2025-08-07] MEDS: D5W 1000 IV ×2 (02:13→15:14)
[2025-08-07 05:15] LABS: Hematocrit 37.2 % (39.0-52.0); Hemoglobin 12.2 g/dL (13.0-18.0); Mean Corp Hgb Conc. 32.8 g/dL (33.0-37.0); Mean Corpuscular Volume 91.0 fL (80.0-94.0); Nucleated Red Blood Cells % 0 % (-); Platelet Count 379 10^3/uL (130-400); Red Cell Dist. Width 15.6 % (11.5-14.5)
[2025-08-07 05:45] LABS: ALT (SGPT) 22 U/L (0-50); AST (SGOT) 25 U/L (17-59); Albumin 3.5 g/dl (3.5-5.0); Alkaline Phosphatase 54 U/L (38-126); Blood Urea Nitrogen 14 mg/dl (9-20); Calcium 10.1 mg/dl (8.4-10.2); Carbon Dioxide 23 mmol/L (22-30); Chloride 108 mmol/L (98-107); Estimated Creatinine Clearance 68 ml/min; Glucose 137 mg/dl (70-99); Potassium 3.2 mmol/L (3.5-5.1); Sodium 137 mmol/L (135-145); Total Protein 6.5 g/dl (6.3-8.2); eGFR > 60.00
[2025-08-07] MEDS: SYNTHROID 50 MCG PO (05:46)
[2025-08-07] MEDS: ATROVENT NEBULES 0.5 MG INH ×2 (08:05→20:19)
[2025-08-07] MEDS: MESTINON 30 MG PO (09:45)
[2025-08-07] MEDS: LOPRESSOR 50 MG PO (09:46)
[2025-08-07] MEDS: PROTONIX 40 MG PO (09:46)
[2025-08-07] MEDS: CARDIZEM CD 180 MG PO (09:46)
[2025-08-07] MEDS: MYCOSTATIN ORAL SUSPENSION 5 ML PO ×4 (09:47→21:53)
[2025-08-07] MEDS: THIAMINE INJECTION 200 MG IV (09:47)
[2025-08-07] MEDS: ELIQUIS 5 MG PO ×2 (09:47→21:52)
[2025-08-07] MEDS: COLACE 100 MG PO ×2 (09:47→21:52)
[2025-08-07] MEDS: DESENEX/MITRAZOL/ZEASORB 1 APPLIC TOPICAL ×2 (09:48→22:01)
[2025-08-07] MEDS: FLUSH (NSS) 2 FLUSH IV ×2 (09:51→13:40)
--- NOTE | 2025-08-07 11:03 | W.PN.UPDATE ---
Update Note
Progress Note Update
pt seen for assessment. continues to be confused, barely responsive to questioning, maday not know where he is, says he feels fine as he is assisted with total care.Tremor of right upper extermity persists.
Most likely cause appears to be lingering lithium toxicity; may be heading toward SILENT (Syndrome of Irreversible Ray Effectuated Neurotoxicity) which occus in small minority of lithium toxic patients. Not generally diagnosed until after
several weeks of continued neurological symptoms but worrisome in someone who is now day 8 of hospital stay. Neuro symptoms of lithium intoxication can lag dorp to 0 of serum levels, since brain lithium stays higher longer, but lack of better
response so far concerning. No intervention needed at this point.
Unable to see why he is on Mestinon, may be contributing to picture (no sign of myasthenia gravis in chart or clinically.)
--- NOTE | 2025-08-07 11:33 | W.PN.GI.CBS2 ---
Today's Communication / Plan
-
correct electrolytes
continue mestinon, dulcolax
Assessment / Plan
-
Mark Casarez is a 65-year-old male with a past medical history of significant psychiatric conditions, on chronic anti-psychotics including [place], chronic pain syndrome, polysubstance use, multiple nutritional deficiencies who presented from [facility]
following hospitalization for with altered mental status and electrolyte abnormalities. He was found to have significantly elevated lithium levels, as well as hypernatremia, DEANA, and presumed sepsis. Infectious workup has been negative so far,
electrolyte abnormalities have mostly corrected, and his lithium levels are being monitored. We were consulted for imaging abdominal distention and vomiting.
#Colonic Distention/[place]'s
#[place] Toxicity (resolved)
#Chronic Anti-Psychotic use
#DEANA
#Hypernatremia
#2.3cm Pancreatic Lesion
plan:
- keep electrolytes correct (potassium low)
- follow magnesium
- continue dulcolax
- on low dose mestinon
- yesterdays xray improved from prior
Subjective
Subjective
Date of Service: August 07, 2025
Pt still disoriented, no obvious abd pain
Objective
Data Reviewed
Laboratory Data:
Laboratory Results
08/07/25 04:54
08/07/25 04:54
Laboratory Results
Phosphorus 4.0 mg/dl (2.5-4.5) 07/31/25 09:54
Magnesium 1.9 mg/dl (1.6-2.3) 08/02/25 04:22
Total Bilirubin 0.8 mg/dl (0.2-1.3) 08/07/25 04:54
AST 25 U/L (17-59) 08/07/25 04:54
ALT 22 U/L (0-50) 08/07/25 04:54
Alkaline Phosphatase 54 U/L (38-126) 08/07/25 04:54
Vital Signs and I&O:
Vital Signs
Temp Pulse Resp BP Pulse Ox
98.6 F 78 18 109/62 96
08/07/25 07:00 08/07/25 09:46 08/07/25 08:08 08/07/25 09:46 08/07/25 08:08
I&O
08/06/25 08/07/25 08/08/25
06:59 06:59 06:59
Intake Total 0 / 0
Output Total 1250 / 1250 1180 / 1180
Balance -1250 / -1250 -1180 / -1180
Physical Exam
Physical Exam
GI: Distended and Other (tympanitic but not tense)
[2025-08-07] MEDS: MYLICON 80 MG PO (13:33)
[2025-08-07] MEDS: TORADOL 15 MG IV (13:38)
[2025-08-07] MEDS: KCL 270 MEQ IV (15:10)
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
[2025-08-07] MEDS: D5/0.9% SODIUM CHLORIDE 1000 IV (18:15)
[2025-08-07] MEDS: FLOMAX 0.4 MG PO (18:16)
[2025-08-07] MEDS: LOPRESSOR PO (21:51)
[2025-08-07] MEDS: MELATONIN 3 MG PO (21:52)
[2025-08-07] MEDS: SENOKOT 8.6 MG PO (21:52)
[2025-08-07] MEDS: SINGULAIR 10 MG PO (21:53)
[2025-08-07] MEDS: LIPITOR 40 MG PO (21:53)
--- NOTE | 2025-08-07 22:00 | PTCARENOTE ---
Rectal trumpet to straight drainage placed at beginning of shift per provider order. Pt later removed deviced. New rectal trumpet placed with large amount of flatus expelled following insertion. Plan of care ongoing.
[2025-08-08] VITALS (9 sets, daily range): BP systolic 110–130; BP diastolic 54–73; PULSE 2; BMI 37.3
[2025-08-08 04:41] LABS: Hematocrit 37.1 % (39.0-52.0); Hemoglobin 12.2 g/dL (13.0-18.0); Mean Corp Hgb Conc. 32.9 g/dL (33.0-37.0); Mean Corpuscular Volume 93.0 fL (80.0-94.0); Platelet Count 392 10^3/uL (130-400); Red Cell Dist. Width 15.9 % (11.5-14.5)
[2025-08-08 04:57] LABS: Blood Urea Nitrogen 15 mg/dl (9-20); Calcium 9.7 mg/dl (8.4-10.2); Carbon Dioxide 23 mmol/L (22-30); Chloride 110 mmol/L (98-107); Estimated Creatinine Clearance 65 ml/min; Glucose 140 mg/dl (70-99); Magnesium 1.7 mg/dl (1.6-2.3); Potassium 3.6 mmol/L (3.5-5.1); Sodium 140 mmol/L (135-145); eGFR 55.43
[2025-08-08] MEDS: SYNTHROID 50 MCG PO (05:11)
[2025-08-08] MEDS: TORADOL 15 MG IV ×2 (05:21→14:55)
[2025-08-08] MEDS: ATROVENT NEBULES 0.5 MG INH (08:01)
--- NOTE | 2025-08-08 08:06 | W.PN.GI.CBS2 ---
Today's Communication / Plan
-
miralax, mestinon, dulcolax
Assessment / Plan
-
Mark Casarez is a 65-year-old male with a past medical history of significant psychiatric conditions, on chronic anti-psychotics including [place], chronic pain syndrome, polysubstance use, multiple nutritional deficiencies who presented from [place]
following hospitalization for with altered mental status and electrolyte abnormalities. He was found to have significantly elevated lithium levels, as well as hypernatremia, DEANA, and presumed sepsis. Infectious workup has been negative so far,
electrolyte abnormalities have mostly corrected, and his lithium levels are being monitored. We were consulted for imaging abdominal distention and vomiting.
#Colonic Distention/Annabelle's
#[place] Toxicity
#Chronic Anti-Psychotic use
#DEANA
#Hypernatremia
#2.3cm Pancreatic Lesion
plan:
- keep electrolytes correct (pending this am
- follow magnesium
- continue dulcolax
- on low dose mestinon
- yesterdays xray is c/w ongoing bowel ileus, I don't think he is worse in fact he appears improved. SB is now prominent but mestinon will work for that as well
- would try miralax if able to take for right sided stool
- xray tomorrow
Subjective
Subjective
Date of Service: August 08, 2025
Pt not tremulous
spoke with nurse no vomiting
Objective
Data Reviewed
Laboratory Data:
Laboratory Results
08/08/25 04:11
08/08/25 04:11
Laboratory Results
Phosphorus 4.0 mg/dl (2.5-4.5) 07/31/25 09:54
Magnesium 1.7 mg/dl (1.6-2.3) 08/08/25 04:11
Total Bilirubin 0.8 mg/dl (0.2-1.3) 08/07/25 04:54
AST 25 U/L (17-59) 08/07/25 04:54
ALT 22 U/L (0-50) 08/07/25 04:54
Alkaline Phosphatase 54 U/L (38-126) 08/07/25 04:54
Vital Signs and I&O:
Vital Signs
Temp Pulse Resp BP Pulse Ox
98.1 F 72 22 130/68 98
08/08/25 07:00 08/08/25 07:00 08/08/25 07:00 08/08/25 07:00 08/08/25 07:00
I&O
08/07/25 08/08/25 08/09/25
06:59 06:59 06:59
Intake Total 270 / 270
Output Total 1180 / 1180 750 / 750
Balance -1180 / -1180 -480 / -480
Physical Exam
Physical Exam
GI: Distended (but decreased)
Neuro: Other
not coherent but not agitated
[2025-08-08] MEDS: D5/0.9% SODIUM CHLORIDE 1000 IV ×2 (08:40→22:09)
[2025-08-08] MEDS: CARDIZEM CD 180 MG PO (08:43)
[2025-08-08] MEDS: MYCOSTATIN ORAL SUSPENSION 5 ML PO ×4 (08:43→22:28)
[2025-08-08] MEDS: ELIQUIS 5 MG PO ×2 (08:43→22:28)
[2025-08-08] MEDS: COLACE 100 MG PO ×2 (08:43→22:29)
[2025-08-08] MEDS: PROTONIX 40 MG PO (08:43)
[2025-08-08] MEDS: THIAMINE INJECTION 200 MG IV (08:44)
[2025-08-08] MEDS: LOPRESSOR 50 MG PO ×2 (08:44→22:34)
[2025-08-08] MEDS: DESENEX/MITRAZOL/ZEASORB 1 APPLIC TOPICAL ×2 (08:44→22:30)
--- NOTE | 2025-08-08 12:54 | W.PN.UPDATE ---
Update Note
Progress Note Update
pt seen for followup. appears more comfortable, belly less distended. right leg shaking, nothing in upper extremities. pt again says 'fine' when asked how he is; when asked where he is does not respond with anything intelligible. I asked his name,
says clearly 'Mark Casarez' When asked how old he is, says '[place]; ' asked again, just grunts. no eye contact, some tongue thrusting. Overall slight improvement.
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
[2025-08-08] MEDS: TYLENOL 650 MG PO (16:44)
[2025-08-08] MEDS: MYLICON 80 MG PO (16:44)
[2025-08-08] MEDS: DILAUDID 0.25 MG IV (17:08)
[2025-08-08] MEDS: FLOMAX 0.4 MG PO (17:40)
[2025-08-08] MEDS: VALIUM INJECTION 2 MG IV (17:55)
[2025-08-08] MEDS: SINGULAIR 10 MG PO (22:29)
[2025-08-08] MEDS: DILAUDID 0.5 MG IV (22:29)
[2025-08-08] MEDS: LIPITOR 40 MG PO (22:29)
[2025-08-08] MEDS: SENOKOT 8.6 MG PO (22:29)
[2025-08-08] MEDS: MELATONIN 3 MG PO (22:29)
[2025-08-09] VITALS (7 sets, daily range): BP systolic 106–135; BP diastolic 58–78; PULSE 71; O2SAT 98; BMI 36.8
[2025-08-09 05:24] LABS: Hematocrit 35.7 % (39.0-52.0); Hemoglobin 11.3 g/dL (13.0-18.0); Mean Corp Hgb Conc. 31.7 g/dL (33.0-37.0); Mean Corpuscular Volume 93.0 fL (80.0-94.0); Platelet Count 379 10^3/uL (130-400); Red Cell Dist. Width 16.3 % (11.5-14.5)
[2025-08-09 05:56] LABS: ALT (SGPT) 26 U/L (0-50); AST (SGOT) 29 U/L (17-59); Albumin 3.2 g/dl (3.5-5.0); Alkaline Phosphatase 46 U/L (38-126); Blood Urea Nitrogen 14 mg/dl (9-20); Calcium 9.3 mg/dl (8.4-10.2); Carbon Dioxide 21 mmol/L (22-30); Chloride 116 mmol/L (98-107); Estimated Creatinine Clearance 64 ml/min; Glucose 144 mg/dl (70-99); Potassium 3.8 mmol/L (3.5-5.1); Sodium 142 mmol/L (135-145); Total Protein 6.0 g/dl (6.3-8.2); eGFR 55.43
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
[2025-08-09] MEDS: LOPRESSOR 50 MG PO ×2 (08:39→22:06)
[2025-08-09] MEDS: MYCOSTATIN ORAL SUSPENSION 5 ML PO ×4 (08:39→22:04)
[2025-08-09] MEDS: PROTONIX 40 MG PO (08:40)
[2025-08-09] MEDS: ELIQUIS 5 MG PO ×2 (08:40→22:05)
[2025-08-09] MEDS: CARDIZEM CD 180 MG PO (08:40)
[2025-08-09] MEDS: THIAMINE INJECTION 200 MG IV (08:41)
[2025-08-09] MEDS: COLACE 100 MG PO ×2 (08:41→22:04)
[2025-08-09] MEDS: SYNTHROID 50 MCG PO (08:41)
[2025-08-09] MEDS: DESENEX/MITRAZOL/ZEASORB 1 APPLIC TOPICAL ×2 (08:41→22:06)
[2025-08-09] MEDS: D5/0.9% SODIUM CHLORIDE 1000 IV ×2 (08:44→23:16)
[2025-08-09] MEDS: DILAUDID 0.5 MG IV ×3 (09:33→23:16)
[2025-08-09] MEDS: FLUSH (NSS) 2 FLUSH IV (09:34)
--- NOTE | 2025-08-09 09:53 | W.PN.GI.CBS2 ---
Addendum entered and electronically signed by Marija Perdomo MD 08/09/25 13:03:
I saw and evaluated the patient. I reviewed the resident�s note and agree with findings and plan as documented in the resident�s note.
Pt's stomach is markedly improved. still agitated, confused
abd: much less distended, soft
impression:
oglivie's resolved
xray shows marked improvement as well (viewed films)
plan:
can continue on dulcolax and low dose mestinon for now until able to take miralax
when able to take miralax then add miralax daily and can taper off mestinon (bid then daily then off)
mental status is the only limiting factor for po intake
can't do MRI with agitation and can be done outpatient electively
no need to follow xrays
will sign off call with questions
Original Note:
Today's Communication / Plan
-
- Trend electrolytes and replete as needed
- Consider AM abdominal x-ray tomorrow, 08/10
- MRI abdomen w/wo contrast ordered
- Continue bisacodyl prn
- Recommendations are not final until discussed with attending, Dr. Perdomo.
Assessment / Plan
-
In summary, 65 yo M PMH of significant psychiatric conditions, on chronic lithium, chronic anti-psychotics, chronic pain syndrome, polysubstance abuse, nutritional deficiencies p/w altered mental status and electrolyte abnormalities coming from [place]
after hospitalization for SI.
During this admission, he was found to have elevated lithium levels, hypernatremia, DEANA, and presumed sepsis. Infectious workup has been unremarkable.
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
# Acute colonic pseudo-obstruction/Forman's syndrome
# Ileus
- Abdominal x-ray 08/09 read as small bowel distension and improving ileus from prior
- the ddx for pseudo-obstruction includes mechanical obstruction, toxic megacolon. CT from 08/02 showed no evidence of obstruction.
- Etiology of this presentation may be lithium toxicity, and electrolyte abnormalities
- On my review of the abdominal x-rays since 08/02, the colonic dilation appears to have resolved, and the small bowel dilation is also improving.
- received pyridostigmine on 08/06
- Most recent electrolytes within normal limits (K 3.8, Mg 1.7)
- Per nursing, he wants more food to eat, has not been vomiting, last BM a few days ago because of NPO status. But unclear if mental status is appropriate to advance diet at this time.
Plan:
- Consider continuing NPO for now
- Trend electrolytes and replete as needed
- Consider AM abdominal x-ray tomorrow, 08/10
- Continue bisacodyl prn
# Pancreatic lesion, 2.3cm
Plan:
- MRI abdomen w/wo contrast ordered
- However, per documentation, patient may be unable to sit still.
# DEANA
- Cr most recently 1.4, down from 1.9 on 08/01
# [place] toxicity (resolved)
# Chronic Anti-Psychotic use
- level = 0.9; down from 2.1 on admission
# Hypernatremia (resolved)
- Na+ most recently 142
Recommendations are not final until discussed with attending, Dr. Perdomo.
Subjective
Subjective
Date of Service: August 09, 2025
This morning, patient repeatedly moved his right leg across the bed and occasional thrust his right arm outward.
He is redirectable but only AOx1 to name on my exam. He denies abdominal pain to me.
He denies vomiting.
Objective
Data Reviewed
Laboratory Data:
Laboratory Results
08/09/25 05:11
08/09/25 05:11
Laboratory Results
Phosphorus 4.0 mg/dl (2.5-4.5) 07/31/25 09:54
Magnesium 1.7 mg/dl (1.6-2.3) 08/08/25 04:11
Total Bilirubin 0.7 mg/dl (0.2-1.3) 08/09/25 05:11
AST 29 U/L (17-59) 08/09/25 05:11
ALT 26 U/L (0-50) 08/09/25 05:11
Alkaline Phosphatase 46 U/L (38-126) 08/09/25 05:11
Imaging:
Abdominal x-ray 08/09/2025
IMPRESSION:
There are numerous mildly gas-distended loops of small bowel which have overall slightly improved from prior and may represent an improving obstruction or ileus.
Vital Signs and I&O:
Vital Signs
Temp Pulse Resp BP Pulse Ox
97.5 F 67 28 111/78 96
08/09/25 08:07 08/09/25 08:39 08/09/25 08:07 08/09/25 08:39 08/09/25 09:00
I&O
08/08/25 08/09/25 08/10/25
06:59 06:59 06:59
Intake Total 270 / 270 0 / 0
Output Total 750 / 750 850 / 850
Balance -480 / -480 -850 / -850
Physical Exam
Physical Exam
GI: Distended and Non Tender
Extremities: No Edema
Neuro: Other (AOx1, occasionally perseverates, repeatedly moving right leg across bed with occasional thrusting out right arm)
--- NOTE | 2025-08-09 13:20 | PTOTSP ---
Speech Language Pathology
Pt seen for dysphagia tx. Pt not appropriately answering questions during session. Seen with P.O. trials of puree, regular solids, and thin liquids provided. Impulsive rate of intake noted with liquids. Minimal mastication of regular solids with
pt appearing to press between lingual surface and hard palate until soft enough to swallow. No overt signs of aspiration.
Recommend:
(1) IDDSI Level 4 (Puree) and Thin Liquids
(2) Aspiration precautions: sit upright, slow rate, full supervision with assist as needed
(3) Meds crushed in puree
(4) PRODUCTION ENGINEER to continue to follow
--- NOTE | 2025-08-09 14:32 | CM ---
CM spoke with the DON and admissions regarding Mark's return to [facility]. Per DON he has been bed bound and does not have any skillable needs.
Plan: Return to [facility] when medically cleared.
[facility] Report: [phone] or [phone]
[facility]
--- NOTE | 2025-08-09 14:56 | PTOTSP ---
PATIENT REQUIRING CLOSE TO FULL ASSIST OF 2 PEOPLE FOR SUPINE<>SIT ON SIDE OF BED. CASE MANAGEMENT NOTIFIED THERAPISTS AFTER SESSION THAT PATIENT IS BEDBOUND AT FACILITY THEREFORE NO FURTHER ACUTE CARE SKILLED THERAPY IS INDICATED. WILL DISCHARGE
FROM P.T. SERVICES.
[2025-08-09] MEDS: TYLENOL 650 MG PO (15:49)
--- NOTE | 2025-08-09 16:25 | W.PN.UPDATE ---
Update Note
Progress Note Update
pt seen again for assessment of progress. more alert today, answers with name and even able to give age (after four times posing the question to him) though gets age wrong on repeat questioning. cannot say why he is here, knows he is in a hospital
(improvement) still cannot say which one despite being told repeatedly.
Answers about a third of my questions (despited loudly asking them again and again). Jerking both legs, tremoring arm, moaning. Answers 'yes' when asked if he had ECT, but cannot say why or where
Would continue to hold psychotropics, but making progress. will see tosha
[2025-08-09] MEDS: FLOMAX 0.4 MG PO (17:35)
[2025-08-09] MEDS: LIPITOR 40 MG PO (22:05)
[2025-08-09] MEDS: SENOKOT 8.6 MG PO (22:05)
[2025-08-09] MEDS: SINGULAIR 10 MG PO (22:05)
[2025-08-09] MEDS: MELATONIN 3 MG PO (22:05)
[2025-08-10 00:05] VITALS: PULSE 2; PULSE 60
[2025-08-10 05:04] VITALS: PULSE 2
[2025-08-10 06:00] VITALS: BMI 37.7
[2025-08-10] MEDS: SYNTHROID 50 MCG PO (06:01)
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
[2025-08-10 06:59] LABS: Hematocrit 38.1 % (39.0-52.0); Hemoglobin 11.9 g/dL (13.0-18.0); Mean Corp Hgb Conc. 31.2 g/dL (33.0-37.0); Mean Corpuscular Volume 95.5 fL (80.0-94.0); Platelet Count 405 10^3/uL (130-400); Red Cell Dist. Width 16.6 % (11.5-14.5)
[2025-08-10 07:30] VITALS: BP 115/76
[2025-08-10 07:43] LABS: ALT (SGPT) 25 U/L (0-50); AST (SGOT) 25 U/L (17-59); Albumin 3.5 g/dl (3.5-5.0); Alkaline Phosphatase 50 U/L (38-126); Blood Urea Nitrogen 12 mg/dl (9-20); Calcium 9.6 mg/dl (8.4-10.2); Carbon Dioxide 21 mmol/L (22-30); Chloride 117 mmol/L (98-107); Estimated Creatinine Clearance 70 ml/min; Glucose 137 mg/dl (70-99); Potassium 3.8 mmol/L (3.5-5.1); Sodium 146 mmol/L (135-145); Total Protein 6.4 g/dl (6.3-8.2); eGFR > 60.00
[2025-08-10] MEDS: PROTONIX 40 MG PO (09:50)
[2025-08-10] MEDS: COLACE 100 MG PO ×2 (09:50→22:34)
[2025-08-10] MEDS: ELIQUIS 5 MG PO ×2 (09:50→22:28)
[2025-08-10] MEDS: LOPRESSOR 50 MG PO ×2 (09:50→22:28)
[2025-08-10] MEDS: MYCOSTATIN ORAL SUSPENSION 5 ML PO ×4 (09:50→22:28)
[2025-08-10] MEDS: THIAMINE INJECTION 200 MG IV (09:50)
[2025-08-10] MEDS: CARDIZEM CD 180 MG PO (09:50)
[2025-08-10] MEDS: DESENEX/MITRAZOL/ZEASORB 1 APPLIC TOPICAL ×2 (10:07→22:29)
[2025-08-10] MEDS: D5/0.9% SODIUM CHLORIDE 1000 IV ×2 (10:33→22:53)
[2025-08-10] MEDS: TORADOL 15 MG IV (10:39)
[2025-08-10 12:10] VITALS: BP 128/60
--- NOTE | 2025-08-10 13:34 | W.PN.UPDATE ---
Update Note
Progress Note Update
pt seen again for assesment of improvement. Better each day, though still unable to engage in any extended conversation. Can tell me his name, gives me age as '5' then keeps repeading last name. Unaware of where he is or how he came to be here.
Grunting much of the time, answers about 10% of questions. Right arm and both legs moving most of the interview. Says he feels fine, addresses me as 'Doc'
Still too early to resume meds, but soon
--- NOTE | 2025-08-10 13:59 | CM ---
Addendum entered by Rina Russell 08/11/25 10:44:
Call received from Rahel at [facility]. Update provided.
Plan: Pt to return to [facility] when medically stable. Will need ambulance transport.
Addendum entered by Rina Russell 08/10/25 14:02:
[facility] Report: [phone]
[facility]
Original Note:
Pt being seen daily by Dr. Guzmán, psychiatry, while at . Psychotropics are being held due to mental status changes and and tardive dyskinesia/jerky movements. Per Dr. Guzmán, he is making slow progress, but improving.
Pt not cleared for discharge at this time; will return to [facility] when medically stable via ambulance.
Pt has no skilled needs at this time, so will not require authorization for return.
Plan: CM will continue to follow to coordinate return to [facility] at discharge.
--- NOTE | 2025-08-10 14:21 | W.PN.UPDATE ---
Update Note
Progress Note Update
Annabelle syndrome/colonic ileus versus developing SBO
ADAT per GI
S/p rectal tube
Consider NGT to decompression if vomiting
IV fluids
Keep magnesium greater than 2
Replete electrolytes
Continue Dulcolax
Continue Mestinon/pyridostigmine
Avoid paralytics
GI and surgery following
Acute toxic metabolic encephalopathy in the setting of lithium toxicity and DEANA
EEG without seizures
MRI without acute issues
Previous discussion with neurology no indication for LP as suspected toxic encephalopathy related to lithium toxicity
Pancreatic head mass 3.2 cm
Will need MRI unable to sit still long enough to complete
Will need to be completed outpatient
Will need outpatient GI follow-up
[2025-08-10 15:02] VITALS: BP 104/56
[2025-08-10] MEDS: LASIX 20 MG PO (15:39)
[2025-08-10] MEDS: MIRALAX 17 GRAMS PO (15:39)
[2025-08-10] MEDS: FLOMAX 0.4 MG PO (17:26)
[2025-08-10] MEDS: SINGULAIR 10 MG PO (22:28)
[2025-08-10] MEDS: LIPITOR 40 MG PO (22:28)
[2025-08-10] MEDS: MELATONIN 3 MG PO (22:28)
[2025-08-10] MEDS: SENOKOT 8.6 MG PO (22:28)
[2025-08-10] MEDS: DILAUDID 0.5 MG IV (22:34)
[2025-08-10 23:49] VITALS: BP 119/66
[2025-08-11 01:45] VITALS: PULSE 2; PULSE 58
[2025-08-11 06:21] LABS: Hematocrit 35.2 % (39.0-52.0); Hemoglobin 11.3 g/dL (13.0-18.0); Mean Corp Hgb Conc. 32.1 g/dL (33.0-37.0); Mean Corpuscular Volume 93.9 fL (80.0-94.0); Platelet Count 344 10^3/uL (130-400); Red Cell Dist. Width 16.5 % (11.5-14.5)
[2025-08-11 06:49] LABS: ALT (SGPT) 24 U/L (0-50); AST (SGOT) 24 U/L (17-59); Albumin 3.3 g/dl (3.5-5.0); Alkaline Phosphatase 48 U/L (38-126); Blood Urea Nitrogen 10 mg/dl (9-20); Calcium 8.7 mg/dl (8.4-10.2); Carbon Dioxide 21 mmol/L (22-30); Chloride 116 mmol/L (98-107); Estimated Creatinine Clearance 76 ml/min; Glucose 134 mg/dl (70-99); Potassium 3.9 mmol/L (3.5-5.1); Sodium 143 mmol/L (135-145); Total Protein 6.0 g/dl (6.3-8.2); eGFR > 60.00
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
[2025-08-11 08:07] VITALS: BP 148/70
[2025-08-11] MEDS: PROTONIX 40 MG PO (09:17)
[2025-08-11] MEDS: CARDIZEM CD 180 MG PO (09:17)
[2025-08-11] MEDS: MYCOSTATIN ORAL SUSPENSION 5 ML PO ×4 (09:17→21:14)
[2025-08-11] MEDS: MIRALAX 17 GRAMS PO (09:17)
[2025-08-11] MEDS: THIAMINE INJECTION 200 MG IV (09:18)
[2025-08-11] MEDS: COLACE 100 MG PO ×2 (09:18→21:12)
[2025-08-11] MEDS: ELIQUIS 5 MG PO ×2 (09:18→21:13)
[2025-08-11] MEDS: LOPRESSOR 50 MG PO ×2 (09:18→21:11)
[2025-08-11] MEDS: DESENEX/MITRAZOL/ZEASORB 1 APPLIC TOPICAL ×2 (09:23→20:12)
[2025-08-11] MEDS: SYNTHROID PO (09:27)
[2025-08-11] MEDS: DILAUDID 0.5 MG IV (12:08)
--- NOTE | 2025-08-11 15:20 | WOUNDNOTE ---
LUIZA RN NOTE: Followed up today with assist of nurse Andrés. Patient assisted with turning, had incontinent stool, Zamorano in use. MASD on scrotum with scattered weeping areas. L buttock appears to be a stage 3 PI. Blue and yellow eschar in center,
pink edge, silicone foam applied. Will order Santyl to start tomorrow with adaptic and dry dressing. Skin care given and Calazime applied to scrotum and buttocks. R buttock with chronic discolored appearing skin. R lateral lower leg with fungal
appearing rash, patient states it itches, foam in use. Fungal powder applied to leg and left open to air. Nurse Shavon updated on the above, reports patient kept scratching R lower leg. Recommended cover with large Tubigrip size G to prevent patient
touching area. Will confirm with hospitalist and update care plan. Patient is on an air mattress, repositioned patient to L semi side lying position. Patient states appetite is poor. Heels are intact, folded air cushion placed under calves. Will
follow as needed.
--- NOTE | 2025-08-11 15:23 | WOUNDNOTE ---
SACRUM, BUTTOCKS,SCROTUM
--- NOTE | 2025-08-11 15:24 | WOUNDNOTE ---
RIGHT LATERAL LOWER LEG
[2025-08-11] MEDS: FLOMAX 0.4 MG PO (17:04)
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
[2025-08-11] MEDS: D5/0.9% SODIUM CHLORIDE 1000 IV (20:11)
--- NOTE | 2025-08-11 21:02 | PTCARENOTE ---
Pt wants to brush teeth in the morning.
[2025-08-11] MEDS: MELATONIN 3 MG PO (21:11)
[2025-08-11] MEDS: SINGULAIR 10 MG PO (21:13)
[2025-08-11] MEDS: SENOKOT 8.6 MG PO (21:13)
[2025-08-11] MEDS: LIPITOR 40 MG PO (21:14)
[2025-08-11 23:00] VITALS: BP 131/68
[2025-08-12 00:50] VITALS: PULSE 2; PULSE 60
[2025-08-12] MEDS: SYNTHROID 50 MCG PO (06:25)
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
[2025-08-12 07:29] LABS: Hematocrit 36.3 % (39.0-52.0); Hemoglobin 11.4 g/dL (13.0-18.0); Mean Corp Hgb Conc. 31.4 g/dL (33.0-37.0); Mean Corpuscular Volume 97.3 fL (80.0-94.0); Platelet Count 339 10^3/uL (130-400); Red Cell Dist. Width 16.5 % (11.5-14.5)
[2025-08-12 07:30] VITALS: BP 138/72
[2025-08-12 08:20] LABS: ALT (SGPT) 24 U/L (0-50); AST (SGOT) 23 U/L (17-59); Albumin 3.4 g/dl (3.5-5.0); Alkaline Phosphatase 49 U/L (38-126); Blood Urea Nitrogen 11 mg/dl (9-20); Calcium 9.1 mg/dl (8.4-10.2); Carbon Dioxide 22 mmol/L (22-30); Chloride 112 mmol/L (98-107); Estimated Creatinine Clearance 83 ml/min; Glucose 125 mg/dl (70-99); Potassium 3.9 mmol/L (3.5-5.1); Sodium 141 mmol/L (135-145); Total Protein 6.1 g/dl (6.3-8.2); eGFR > 60.00
[2025-08-12] MEDS: CARDIZEM CD 180 MG PO (08:20)
[2025-08-12] MEDS: PROTONIX 40 MG PO (08:20)
[2025-08-12] MEDS: MIRALAX 17 GRAMS PO (08:20)
[2025-08-12] MEDS: MYCOSTATIN ORAL SUSPENSION 5 ML PO ×4 (08:20→21:27)
[2025-08-12] MEDS: ELIQUIS 5 MG PO ×2 (08:20→21:25)
[2025-08-12] MEDS: SANTYL OINTMENT 1 APPLIC TOPICAL (08:21)
[2025-08-12] MEDS: COLACE 100 MG PO ×2 (08:21→21:25)
[2025-08-12] MEDS: LOPRESSOR 50 MG PO ×2 (08:21→21:24)
[2025-08-12] MEDS: THIAMINE INJECTION 200 MG IV (08:22)
[2025-08-12] MEDS: DESENEX/MITRAZOL/ZEASORB 1 APPLIC TOPICAL ×2 (08:37→21:28)
--- NOTE | 2025-08-12 13:18 | CM ---
Patient seen at bedside on . Patient resting when CM visited, per nurse patient has been doing better with conversations. Await physician guidance regarding patient return to SNF. CM will continue to follow for discharge planning needs.
Plan; return to SNF; [facility] when medically appropriate.
[facility] Report: [phone]
[facility]
[2025-08-12] MEDS: DILAUDID 0.5 MG IV (13:49)
[2025-08-12 15:40] VITALS: BP 130/64
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
[2025-08-12] MEDS: FLOMAX 0.4 MG PO (17:52)
--- NOTE | 2025-08-12 21:05 | PTCARENOTE ---
Pt. wants to brush teeth in the morning.
[2025-08-12] MEDS: SINGULAIR 10 MG PO (21:26)
[2025-08-12] MEDS: MELATONIN 3 MG PO (21:26)
[2025-08-12] MEDS: SENOKOT 8.6 MG PO (21:26)
[2025-08-12] MEDS: LIPITOR 40 MG PO (21:26)
[2025-08-12 23:00] VITALS: BP 104/54
[2025-08-12 23:01] VITALS: PULSE 2; PULSE 65
[2025-08-13 03:57] VITALS: PULSE 2; PULSE 68
[2025-08-13] MEDS: SYNTHROID 50 MCG PO (05:39)
[2025-08-13 06:20] LABS: Hematocrit 34.9 % (39.0-52.0); Hemoglobin 11.0 g/dL (13.0-18.0); Mean Corp Hgb Conc. 31.5 g/dL (33.0-37.0); Mean Corpuscular Volume 96.4 fL (80.0-94.0); Platelet Count 317 10^3/uL (130-400); Red Cell Dist. Width 16.5 % (11.5-14.5)
[2025-08-13 06:46] LABS: ALT (SGPT) 22 U/L (0-50); AST (SGOT) 20 U/L (17-59); Albumin 3.2 g/dl (3.5-5.0); Alkaline Phosphatase 44 U/L (38-126); Blood Urea Nitrogen 13 mg/dl (9-20); Calcium 8.8 mg/dl (8.4-10.2); Carbon Dioxide 22 mmol/L (22-30); Chloride 111 mmol/L (98-107); Estimated Creatinine Clearance 83 ml/min; Glucose 123 mg/dl (70-99); Potassium 3.9 mmol/L (3.5-5.1); Sodium 140 mmol/L (135-145); Total Protein 5.9 g/dl (6.3-8.2); eGFR > 60.00
[2025-08-13 07:00] VITALS: BP 123/74
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
--- NOTE | 2025-08-13 09:10 | PN.CDI ---
CDI
- -
CDI:
Physician Documentation Request
Admit Date: 07/30/25 10:41
Dear Doctor Hiren,
Please review the following and provide your response in the progress notes.
Clinical Indicators:
08/11/25 15:20 - Wound Note
#WON RN NOTE:
#...L buttock appears to be a stage 3 PI.
Physician documentation of the type and location of wounds is required for compliant documentation. Based on the above clinical findings and your assessment, please provide the following in your progress note:
Yes, Left buttock stage 3 pressure injury, POA
No, Left buttock stage 3 pressure injury
Other (please specify)
1. Location of the ulcer/wound, including laterality.
2. Type (etiology) of ulcer/wound:
- Diabetic ulcer
- Arterial (ischemic) ulcer
- Traumatic wound
- Venous stasis ulcer
- Pressure (decubitus) ulcer
- Non-healing surgical wound
3. For a pressure ulcer, please also include the stage* of the ulcer:
- Stage 1 - Skin intact, non-blanchable redness
- Stage 2 - Partial thickness loss of dermis, includes intact or open blister
- Stage 3 - Full thickness tissue not including bone, tendon or muscle
- Stage 4 - Full thickness tissue loss, including exposed bone, tendon or muscle
- Unstageable - Full thickness loss in which the base of the ulcer is covered by slough (yellow, zacarias, forman, green or brown) and/or eschar (zacarias, brown or black) in the wound bed.
- Unable to determine
Use of terms such as suspected, likely, concern for, or probable (associated with a specific diagnosis that is being evaluated, monitored, or treated as if it exists) are acceptable and can be coded in the inpatient setting, when documented at the
time of discharge.
Thank you,
Shruti Granger RN BSN CCDS
CDI Specialist
Please contact via tiger text
Please use your independent medical judgment in providing your response.
*Source: National Pressure Ulcer Advisory Panel (NPUAP)
[2025-08-13] MEDS: MYCOSTATIN ORAL SUSPENSION 5 ML PO ×4 (09:13→22:08)
[2025-08-13] MEDS: PROTONIX 40 MG PO (09:13)
[2025-08-13] MEDS: MIRALAX 17 GRAMS PO (09:13)
[2025-08-13] MEDS: SANTYL OINTMENT 1 APPLIC TOPICAL (09:13)
[2025-08-13] MEDS: ELIQUIS 5 MG PO ×2 (09:13→21:00)
[2025-08-13] MEDS: COLACE 100 MG PO ×2 (09:14→21:00)
[2025-08-13] MEDS: CARDIZEM CD 180 MG PO (09:14)
[2025-08-13] MEDS: LOPRESSOR 50 MG PO ×2 (09:14→21:01)
[2025-08-13] MEDS: THIAMINE INJECTION 200 MG IV (09:15)
[2025-08-13] MEDS: DESENEX/MITRAZOL/ZEASORB 1 APPLIC TOPICAL ×2 (09:16→21:04)
[2025-08-13 15:00] VITALS: BP 138/69
--- NOTE | 2025-08-13 15:07 | W.PN.UPDATE ---
Update Note
Progress Note Update
pt seen for assessment. continues to improve, able to tell me much more of his history, though still gets some elements wrong. Says he want to go to [facility] on [place]; I spoke with his sister, who tells me that [facility] is a program
in [place] (pt readily agrees. ) Pt mentions his ACT team; sister confirms and gave me number of ACT steam table worker James Russo [phone]. I called and left message.
Sister believes that pt would do far better going back to [facility]; he was able to go out, get lunch outside, come to [place] to visit sister. Unclear why he was placed in a SNF
Pt needs another eval by PT, since now history is that he was ambulatory at [facility] (unclear how history was mistaken) and needed two person assist here.
Most likely will need physical rehab after current lithium neurotoxicity/deconditioning.
Pt still not totally clear, but clear enough to start on depakote, jose maria since he was tearful today while we were talking.
Would start with 250 mg bid for now, but will likely need to ramp up to 1500 mg per day in time.
[2025-08-13 15:10] VITALS: BP 138/69; BP 161/72; PULSE 67; O2SAT 97
[2025-08-13] MEDS: FLOMAX 0.4 MG PO (17:51)
[2025-08-13] MEDS: DEPAKOTE (12 HR RELEASE) 250 MG PO (21:00)
[2025-08-13] MEDS: SINGULAIR 10 MG PO (22:08)
[2025-08-13] MEDS: LIPITOR 40 MG PO (22:08)
[2025-08-13] MEDS: MELATONIN 3 MG PO (22:08)
[2025-08-13] MEDS: SENOKOT 8.6 MG PO (22:08)
[2025-08-13 23:20] VITALS: PULSE 2; PULSE 65
[2025-08-13 23:38] VITALS: BP 141/73
[2025-08-14] MEDS: SYNTHROID 50 MCG PO (06:19)
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
[2025-08-14 07:35] LABS: Hematocrit 37.5 % (39.0-52.0); Hemoglobin 11.7 g/dL (13.0-18.0); Mean Corp Hgb Conc. 31.2 g/dL (33.0-37.0); Mean Corpuscular Volume 95.7 fL (80.0-94.0); Platelet Count 307 10^3/uL (130-400); Red Cell Dist. Width 16.5 % (11.5-14.5)
[2025-08-14 07:41] LABS: Blood Urea Nitrogen 15 mg/dl (9-20); Calcium 9.2 mg/dl (8.4-10.2); Carbon Dioxide 25 mmol/L (22-30); Chloride 109 mmol/L (98-107); Estimated Creatinine Clearance 83 ml/min; Glucose 111 mg/dl (70-99); Potassium 4.0 mmol/L (3.5-5.1); Sodium 141 mmol/L (135-145); eGFR > 60.00
[2025-08-14 08:43] VITALS: BP 123/69
[2025-08-14] MEDS: LOPRESSOR 50 MG PO (08:47)
[2025-08-14] MEDS: PROTONIX 40 MG PO (08:48)
[2025-08-14] MEDS: THIAMINE INJECTION 200 MG IV (08:48)
[2025-08-14] MEDS: SANTYL OINTMENT 1 APPLIC TOPICAL (08:48)
[2025-08-14] MEDS: DEPAKOTE (12 HR RELEASE) 250 MG PO (08:48)
[2025-08-14] MEDS: ELIQUIS 5 MG PO (08:48)
[2025-08-14] MEDS: CARDIZEM CD 180 MG PO (08:48)
[2025-08-14] MEDS: MYCOSTATIN ORAL SUSPENSION 5 ML PO ×2 (08:48→13:55)
[2025-08-14] MEDS: COLACE 100 MG PO (08:48)
[2025-08-14] MEDS: DESENEX/MITRAZOL/ZEASORB 1 APPLIC TOPICAL (08:49)
[2025-08-14] MEDS: MIRALAX PO (08:50)
--- NOTE | 2025-08-14 12:54 | CM ---
Addendum entered by Rina Russell 08/14/25 14:07:
Call placed to Mark's sister to make her aware of discharge to [facility] today. Sister, Jojo was unhappy, stating she had not spoken with anyone, despite multiple phone calls with the medical team and was surprised that he was being
discharged back to [facility]. Attempted to review the IMM with pt's sister, however she refused to continue the conversation with , stating I didn't know anything and she needed to speak to the physicians. TT to Dr. Maradiaga and Diana Sandoval
to make them aware.
Original Note:
Pt cleared for discharge to [facility] today. [employer] authorization obtained via [employer]. [employer] authorization # [id number] They did not give a number of days.
Ambulance transport requested for return to [facility] today. 5[employer] pick[employer] scheduled.
[facility] Report: [phone]
[facility]
[2025-08-14 15:29] VITALS: BP 116/64
--- NOTE | 2025-08-14 16:42 | W.DCSUMMARY ---
Discharge Summary
Discharge Data
Date of Admission: 07/30/25
Date of Discharge: 08/14/25
-
Pending Results: No
Hospital Course
HPI
Mark Casarez is a 65-year-old male with a past medical history of bipolar 1 disorder, ROBERT, chronic pain syndrome, MOLLY, BPH, urinary retention, polysubstance use (alcohol, opioids), hypertension, HLD, hypothyroidism, iron deficiency, vitamin B12/D
deficiency, GERD, asthma, prostate cancer, refractory MDD (s/p electroconvulsive therapy) with recent hospitalization for suicidal ideation, who presented from [facility] due to hypernatremia and mental status changes over 3 days in the setting
of a UTI (on abx).
He arrived at [facility] on 07/16/25, coming from [facility] for suicidal ideation. [facility] said he did not produce urine for a whole day. Straight cath at [facility] yielded 400 cs. A Zamorano catheter was placed.
The Zamorano bag showed signs of UTI, but the UA was negative for bacteria. Ciprofloxacin 100 mg twice daily was started on 07/28/2025 for a presumed UTI. On 07/29/25, he refused to take meds and was very lethargic. Ran stat labs (UA, cbc, cmp), got
CXR, started IV D5W. On 07/30/25, a [employer] sent him to hospital for Na 152. Spoke with the [employer]. The [employer] stated that since he arrived at [facility], he has been difficult to wake up in the morning, only waking up after the providers persistently tapped on
him, which is similar to his behavior during admission. Also, he pulled Zamorano [facility]. After talking to patient after 2nd pull, he kept Zamorano in.
ED course
Upon arrival in ED, patient was somnolent, but arousable to physical stimuli. He was presumed septic with possible urinary source, blood cultures were drawn, he was started on Zosyn in the ED. Labs revealed elevated lithium levels, CT head was
unremarkable. Psych meds were held and he was given fluid resuscitation for hypernatremia/hypovolemia.
Hospital course
He was planned for dialysis, but lithium levels normalized and dialysis was not needed anymore. Psych has been following -- agree that lithium tox could contribute to symptoms of delirium. Over few days, his sodium, lithium levels, and creatinine
normalized. He was cleared by speech for IDDSI 4 diet.
On 08/01 he had an episode of roughly 300 cc of yellow/orange emesis into his bipap mask overnight. He had another episode of vomiting on 08/02 and was made n.p.o.
Abdominal x-ray demonstrated diffuse gaseous distention, concerning for ileus versus large bowel obstruction.
CT abdomen with oral contrast unable to be given due to n.p.o. status/cooperation. IV contrast unable to be given due to DEANA. Noncontrast CT abdomen pelvis obtained which showed gaseous distention of the colon/moderate colonic stool, no suspicious
area of colonic narrowing to suggest LBO. However acknowledged limitations without contrast. Also demonstrated a pancreatic head ovoid lesion, for which an MRI abdomen was ordered.
Surgery was consulted. NG tube placement was attempted multiple times, however patient was not cooperative and it could not be placed.
Patient had a sudden episode of tachycardia/a flutter with variable AV block, was given IV metoprolol and upgraded to IMU on Cardizem drip. Echo was done which showed normal LVEF, EF 55 to 60%, no significant valvular abnormalities, however it was
a technically difficult study with poor image quality and there were no images available for comparison. Cardiology was consulted for new onset A-flutter. Patient started on Eliquis anticoagulation, as well as p.o. metoprolol and diltiazem for
rate control.
Seen by neuro, EEG was normal, recommend thiamine and MRI if delirium continues to not improve despite electrolyte and drug level correction. Major concern for GI sx of imaging findings, vomiting, etc. 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
GI was consulted. MRI brain was ended early due to the patient not following directions to remain still: Demonstrated no acute intracranial abnormality. MRI abdomen could not be performed due to the patient not following directions to stay still.
No further workup of altered mental status was recommended. 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
MRI abdomen in unable to be obtained due to continued tardive dyskinesia and will need to do be done outpatient. Pt began passing gas with BM, diet was started per speech recommendations. Mental status slowly improved each day with psychiatry
following closely. Discussion with [facility] and pt's sister regarding functional status at baseline. As mental status improved, pt was seen by physical therapy again and determined to be a candidate for skilled rehab. Psychiatry decided to stop
home psych meds in the setting of lithium toxicity and begin depakote. Started on 250mg BID with plans of titrating up outpatient.
Primary:
[place] toxicity
DEANA
Hypercalcemia
Altered mental status
Delirium
Sleep apnea
[place] syndrome
Constipation
Atrial flutter
Secondary:
Bipolar 1 disorder
Major depression
Recent history suicidal ideation
#Emesis, abd pain & distention
#Constipation
#Annabelle
:: emesis 08/02/2025. Abdominal pain and distension
:: Abdominal x-ray demonstrated diffuse gaseous distention, which may represent ileus but a large bowel obstruction is possible.
- General surgery consulted.
:: Likely Annabelle per surgery
� NPO. BiPAP discontinued
� GI consulted
:: CT a/P noncontrast: Diffuse gaseous distention, constipation; 2.3 cm oval pancreatic lesion, which could be duodenal diverticulum or pancreatic cyst/mass (No p.o. contrast because unable to put NG tube. Not given IV contrast due to DEANA)
� MRI abdomen with and without contrast pending (pancreatic lesion)
� Added milk and molasses to bowel regimen
#AMS
:: May be due to uremia, hypernatremia, lithium toxicity, medication side effect or withdrawal, urosepsis
:: EEG did not record seizures. EEG suggestive of diffuse cortical dysfunction without focal abnormality
:: Speech/swallow evaluation: Pur�e with mildly thick liquids
� Leukocytosis on admission. Increases and decreases around 11,000 WBC. 13.3 on 08/04/25
Neurology recommendations
� MRI brain with and without contrast pending
#Paroxysmal atrial flutter
New 08/02/2025, after patient started vomiting and having distended abdomen
Cardiology consulted
� Metoprolol 50 mg p.o. twice daily
� Diltiazem 180 mg p.o. daily
� Apixaban 5 mg p.o. twice daily
� Aspirin discontinued, with initiation of Eliquis
#Bilateral heel pressure ulcers
� Wound care consulted
#MOLLY: BIPAP
penitentiary bipap settings: /, freq 15, fio2 0.21, rise time 3
- bipap discontinued 08/02 due to emesis.
:: Nocturnal pulse ox: Due to desaturation events, which does not meet criteria for mild MOLLY. Nocturnal pulse ox discontinued
#Bipolar I, depression, anxiety
#Recent hospitalization for suicidal ideation
Psych consult for psychiatric & substance use evaluation, possible medication adjustments given supratherapeutic lithium levels, psych polypharmacy, and potential lithium nephrotoxicity
- Psych recommends continue holding psychotropic meds: [place], lamotrigine, quetiapine, trazodone, venlafaxine
� Likely delirium and major depression. [place] toxicity can contribute to delirium
:: Tardive dyskinesia: Lip smacking, tremors, disorganized speech
Renal
Other nephrology recommendations
- Can discontinue hemodialysis central venous catheter unless needed for IVF
#Hypernatremia: Resolved
:: Na 156 on admission
:: May be due to nephrogenic diabetes insipidus secondary to lithium supratherapeutic level
- D5W at 150 mL/h
� correct Na at 1-2 mEq / hr
#DEANA: Resolved
:: Possible nephrogenic diabetes insipidus, but unlikely per nephrology
:: Cr 1.93 at prison. Cr 5.4 on admission. Decreased to 1.2
:: eGFR 11 to 51
#[place] toxicity: Resolved
Dialysis was planned, given lithium 2.1, AMS, DEANA. Central venous catheter placed. Since lithium level has decreased to normal on 08/01/2025, dialysis not needed anymore. Patient's mental status improved to be able to stay awake and talk.
:: [place] 2.1 on admission; may be causing nephrogenic DI
- monitor urine output
#Sherine urine
:: Likely due to dehydration or elevated creatinine kinase.
:: Urine culture and sensitivity: No growth. UTI on UA: Positive nitrites, leukocyte esterase. Moderate bacteria. Hematuria. Sherine. Urine bilirubin 2+. Urine albumin 3+. Urine ketones 1+
- Zosyn discontinued 08/01/2025
:: Blood cultures: No growth in 24 hours
:: Creatinine phosphokinase mildly elevated at 222. Possibly neuroleptic malignant syndrome at [facility]
#Elevated TnI 0.051�resolved/transient
:: No history CAD in prison records (information gathered from prison). EKG sinus tach
:: repeat TnI undetectable
:: May be from uremia
#Hypothyroidism
:: Levothyroxine IV 37.5 mcg daily while NPO.
�After advancing diet, levothyroxine p.o. 50 mcg daily
- TSH 0.09 low, free T4 normal 1.16
#Hypermagnesemia - resolved
:: likely due to DEANA/renal sufficiency
:: Magnesium 3 to 1.9: Given his moderate kidney impairment per eGFR, address hypermagnesemia with DEANA treatment (IV fluids and maybe loop diuretic)
#BPH: tamsulosin held
#Asthma: ipratropium. montelukast held
#HLD: atorvastatin held. aspirin held
#Supplements: ferrous sulfate, melatonin held
#Constipation: bisacodyl, ducosate, magnesium, fleet enema held
Diet: N.p.o.
DVT ppx: heparin, SCDs
GI ppx: pantoprazole 40 mg IV daily
Full code
Dispo: SNF
Discharge Plan
-
Patient Disposition: Detention/SNF
Discharge Diagnosis/Procedures: Primary:
[place] toxicity
DEANA
Hypercalcemia
Altered mental status
Delirium
Sleep apnea
[place] syndrome
Constipation
Atrial flutter
Secondary:
Bipolar 1 disorder
Major depression
Recent history suicidal ideation
Condition: Fair
Diet: Low Fat, Low Cholesterol and 2 Gram Sodium
Activity: With assistance
Driving Restrictions: As prior to admission
Bathing Restrictions: None
Activity Restrictions/Additional Instructions:
Wound Care Instructions
L buttock: clean with saline, skin prep periwound, Santyl to eschar, adaptic and dry dressing daily and prn soilage.
calazime to remainder of buttocks and scrotum daily and prn drainage.
R lateral lower leg: clean with soap and water, dusting of fungal powder bid, can cover with tubigrip size G to prevent scratching.
Heels: skin prep and adhesive foams change q 3 days and prn soilage
air mattress with turning schedule
offloading cushion when sitting
Follow up at wound care center call for an appointment.
Referrals:
Reji Guzmán MD [Active, Psychiatry] - 08/20/25
Norman Juárez DO [Family Provider, Internal Medicine]
Additional Discharge Medication Instructions: Must get depakote levels done in 5-7 days. Follow up with psychiatry with lab result. Follow up with PCP.
Prescriptions:
New
Eliquis 5 mg Tablet
5 mg PO BID Qty: 60 0RF
diltiazem HCl 180 mg Capsule,Extended Release 24hr
180 mg PO DAILY Qty: 30 0RF
metoprolol tartrate 50 mg Tablet
50 mg PO BID Qty: 60 0RF
nystatin 100,000 unit/mL Suspension
5 ml PO QID Qty: 60 0RF
miconazole nitrate [Miconazorb AF] 2 % Powder
1 applic topical BID Qty: 85 0RF
divalproex 250 mg Tablet,Delayed Release (Dr/Ec)
250 mg PO BID Qty: 60 0RF
Continued
atorvastatin [Lipitor] 40 mg Tablet
40 mg PO HS
sennosides [senna] 8.6 mg Tablet
8.6 mg PO HS
acetaminophen [Tylenol] 325 mg Tablet
650 mg PO Q6HPRN PRN (Reason: MILD PAIN)
melatonin 3 mg Tablet
3 mg PO HS
tamsulosin [Flomax] 0.4 mg Capsule
0.4 mg PO QPM
levothyroxine [Synthroid] 50 mcg Tablet
50 mcg PO DAILY
bisacodyl [Dulcolax (bisacodyl)] 10 mg Suppository
10 mg VT DAILYPRN PRN (Reason: IF NO BM AFTR MOM)
pantoprazole [Protonix] 40 mg Tablet,Delayed Release (Dr/Ec)
40 mg PO DAILY
ferrous sulfate 325 mg (65 mg iron) Tablet
325 mg PO DAILY
docusate sodium [Colace] 100 mg Capsule
100 mg PO BID
montelukast [Singulair] 10 mg Tablet
10 mg PO HS
ipratropium bromide 17 mcg/actuation Hfa Aerosol Inhaler
2 puff INHALATION BID
magnesium hydroxide [Milk of Magnesia] 400 mg/5 mL Suspension
2,400 mg PO [id number] PRN (Reason: CONSTIPATION)
Fleet Enema 19-7 gram/118 mL Enema
118 ml VT DAILYPRN PRN (Reason: IF NO BM AFTR DULCOLAX)
Discontinued
trazodone 50 mg Tablet
50 mg PO HS
venlafaxine [Effexor XR] 150 mg Capsule,Extended Release 24hr
150 mg PO DAILY
ciprofloxacin HCl [Cipro] 500 mg Tablet
500 mg PO BID
Rx Instructions:
FOR 7 DAYS STARTING 07/28/25
aspirin 81 mg Tablet,Delayed Release (Dr/Ec)
81 mg PO DAILY
quetiapine [Seroquel] 100 mg Tablet
500 mg PO HS
lithium carbonate 300 mg Capsule
600 mg PO HS
lamotrigine 100 mg Tablet
100 mg PO BID
metoprolol tartrate 25 mg Tablet
25 mg PO BID
Discharge Orders:
Discharge Patient (As Directed); Ordered 08/14/25
Ordered By: Diana Sandoval
Discharge Date and Time
Print Language: GERMAN
--- NOTE | 2025-08-16 15:16 | PN.CDI ---
CDI
- -
CDI:
Physician Documentation Request
Admit Date: 07/30/25 10:41
Dear Doctor Lori,
Please review the following and provide your response in the progress notes.
Clinical Indicators:
08/11/25 15:20 - Wound Note
#WON RN NOTE:
#...L buttock appears to be a stage 3 PI.
Physician documentation of the type and location of wounds is required for compliant documentation. Based on the above clinical findings and your assessment, please provide the following in your progress note:
Yes, Left buttock stage 3 pressure injury, POA
No, Left buttock stage 3 pressure injury
Other (please specify)
1. Location of the ulcer/wound, including laterality.
2. Type (etiology) of ulcer/wound:
- Diabetic ulcer
- Arterial (ischemic) ulcer
- Traumatic wound
- Venous stasis ulcer
- Pressure (decubitus) ulcer
- Non-healing surgical wound
3. For a pressure ulcer, please also include the stage* of the ulcer:
- Stage 1 - Skin intact, non-blanchable redness
- Stage 2 - Partial thickness loss of dermis, includes intact or open blister
- Stage 3 - Full thickness tissue not including bone, tendon or muscle
- Stage 4 - Full thickness tissue loss, including exposed bone, tendon or muscle
- Unstageable - Full thickness loss in which the base of the ulcer is covered by slough (yellow, zacarias, forman, green or brown) and/or eschar (zacarias, brown or black) in the wound bed.
- Unable to determine
Use of terms such as suspected, likely, concern for, or probable (associated with a specific diagnosis that is being evaluated, monitored, or treated as if it exists) are acceptable and can be coded in the inpatient setting, when documented at the
time of discharge.
Thank you,
Shruti Granger RN BSN CCDS
CDI Specialist
Please contact via tiger text
Please use your independent medical judgment in providing your response.
== END 2025-08-14 17:32 | DRG 91 ==
LOC: 3 WEST ACU 10:41
PROVIDERS: Internal Medicine; Radiology Vascular & Interventional Radiology; Student in an Organized Health Care Education/Training Program; ADMITTING PHYSICIAN Hospitalist; ATTENDING PHYSICIAN Hospitalist; CONSULT PHYSICIAN Internal Medicine Cardiovascular Disease; CONSULT PHYSICIAN Psychiatry & Neurology Neurology; CONSULT PHYSICIAN Specialist; CONSULT PHYSICIAN Surgery; EMERGENCY PHYSICIAN Emergency Medicine; FAMILY PHYSICIAN Internal Medicine
PROC: 02H633Z Insertion of Infusion Device into Right Atrium, Percutaneous Approach (ICD-10-PCS; 2025-07-30)
PROC: B5181ZA Fluoroscopy of Superior Vena Cava using Low Osmolar Contrast, Guidance (ICD-10-PCS; 2025-07-30)
PROC: 5A09357 Assistance with Respiratory Ventilation, Less than 24 Consecutive Hours, Continuous Positive Airway Pressure (ICD-10-PCS; 2025-07-31)
DX: G92.8 Other toxic encephalopathy (principal); G93.41 Metabolic encephalopathy; L89.323 Pressure ulcer of left buttock, stage 3; R65.11 Systemic inflammatory response syndrome (SIRS) of non-infectious origin with acute organ dysfunction; N17.9 Acute kidney failure, unspecified; E87.0 Hyperosmolality and hypernatremia; R45.851 Suicidal ideations; F31.30 Bipolar disorder, current episode depressed, mild or moderate severity, unspecified; Z59.01 Sheltered homelessness; I48.92 Unspecified atrial flutter; I5A Non-ischemic myocardial injury (non-traumatic); N25.1 Nephrogenic diabetes insipidus; K59.81 Ogilvie syndrome; R09.02 Hypoxemia; E78.00 Pure hypercholesterolemia, unspecified; R47.81 Slurred speech; I11.9 Hypertensive heart disease without heart failure; K21.9 Gastro-esophageal reflux disease without esophagitis; R33.8 Other retention of urine; N40.1 Benign prostatic hyperplasia with lower urinary tract symptoms; F41.1 Generalized anxiety disorder; F11.10 Opioid abuse, uncomplicated; F10.10 Alcohol abuse, uncomplicated; G47.33 Obstructive sleep apnea (adult) (pediatric); E53.8 Deficiency of other specified B group vitamins; G47.00 Insomnia, unspecified; E66.09 Other obesity due to excess calories; K59.00 Constipation, unspecified; J45.909 Unspecified asthma, uncomplicated; E03.9 Hypothyroidism, unspecified; G24.01 Drug induced subacute dyskinesia; I44.30 Unspecified atrioventricular block; K86.89 Other specified diseases of pancreas; E83.52 Hypercalcemia; G89.4 Chronic pain syndrome; N20.0 Calculus of kidney; L89.629 Pressure ulcer of left heel, unspecified stage; L89.619 Pressure ulcer of right heel, unspecified stage; E86.1 Hypovolemia; E83.41 Hypermagnesemia; E87.6 Hypokalemia; T43.595A Adverse effect of other antipsychotics and neuroleptics, initial encounter; Y92.9 Unspecified place or not applicable; Z11.52 Encounter for screening for COVID-19; Z79.82 Long term (current) use of aspirin; Z79.899 Other long term (current) drug therapy; Z79.890 Hormone replacement therapy; Z85.46 Personal history of malignant neoplasm of prostate; Z91.51 Personal history of suicidal behavior; Z68.37 Body mass index [BMI] 37.0-37.9, adult; Z79.01 Long term (current) use of anticoagulants
CPT/HCPCS: 36556; 51702; 70450; 70551; 71045; 74018; 74019; 74022; 74176; 76770; 76937; 77001; 80048; 80053; 80076; 80178; 81003; 81015; 82140; 82550; 82607; 83036; 83605; 83735; 83880; 83930; 83935; 84100; 84300; 84439; 84443; 84484; 85025; 85027; 87040; 87086; 87340; 87502; 87811; 92526; 92610; 93005; 93306; 94640; 94660; 94762; 95816; 96361; 96365; 96375; 97116; 97163; 97167; 97530; 99285; C1752; G0257

== ENCOUNTER 2025-09-05 13:29 | Emergency (ER) | payer OTHER, SELFPAY ==
[2025-09-05 13:33] VITALS: BP 125/63; BMI 36.2
--- NOTE | 2025-09-05 14:27 | ED.GENMED ---
History of Present Illness
General
Chief Complaint: Crisis Evaluation
Source: patient
Time Seen by Provider: 09/05/25 14:03
History of Present Illness
History of Present Illness:
65-year-old male with past medical history of bipolar disorder, previous substance abuse, prostate cancer, hypothyroidism, CHF, hypertension, type 1 bipolar disorder presenting to the emergency department for evaluation after experiencing 4 days
stating from the night while he does not have a plan, he just has no will to live. Patient has had multiple similar presentations in the past, recently admitted multiple times at [facility] for inpatient psychiatric treatment. Patient was also
recently admitted here for urinary tract infection and it was noted at times he has had elevated sodium levels. Patient without any specific physical concerns at this time.
Past History
Past History
ED Past Medical History: Arrthythmia, Cancer, GERD, HTN, Seizures, Hypothyroidism and Psychiatric
ED Past Surgical History: Orthopedic
Social History
Tobacco: Non-smoker
Alcohol: Occasional
Drug: Former user
Personal: Single
Living: [facility]
Review of Systems
Review of Systems
All Other Systems: ROS reviewed and negative except as documented in HPI and ROS
Phy Exam
Physical Exam
Physical Exam:
GENERAL: Alert , in no apparent distress, unkept, soft spoken
HEAD: Normocephalic atraumatic
EYE: conjunctiva clear
NECK: Supple
ENT: o/p clr, mmm.
CARDIAC: Regular rate and rhythm
LUNGS: Clear breath sounds bilaterally, no acute respiratory distress, no wheezes/rales/rhonchi
NEUROLOGICAL: Alert and oriented
SKIN: Warm and dry, skin intact.
MUSCULOSKELETAL: well perfused.
PSYCH: Normal and appropriate interaction.
Course
Orders/Labs/Results
Orders:
Orders
09/05/25 13:42
1:1 Observation - Suicide/ Violent Behavior As Directed
Crisis Consult Urgent
Reason for Consult: +SI
09/05/25 14:06
Urinalysis Reflex To Culture Urgent
09/05/25 14:21
Complete Blood Count/With Diff Urgent
Comprehensive Metabolic Panel Urgent
Depakane Urgent
Comment: ADD ON
09/05/25 15:04
Add On- LAB Urgent
Tests Added?: depakote level
Abnormal Lab Results
09/05/25
14:21
RBC 4.51 L 10^6/uL
(4.70-6.10)
MCHC 32.4 L g/dL
(33.0-37.0)
RDW 14.7 H %
(11.5-14.5)
Glucose 120 H mg/dl
(70-99)
Valproic Acid 45.9 L ug/ml
(50.0-120.0)
09/05/25 14:21
09/05/25 14:21
Vital Signs
Initial and Last Documented VS:
Initial Vital Signs
Temp Pulse Resp BP Pulse Ox
97.8 F 78 18 125/63 92
09/05/25 13:33 09/05/25 13:33 09/05/25 13:33 09/05/25 13:33 09/05/25 13:33
Last Documented Vital Signs
Temp Pulse Resp BP Pulse Ox
97.8 F 60 20 123/70 97
09/05/25 13:33 09/05/25 17:58 09/05/25 17:58 09/05/25 17:58 09/05/25 17:58
MDM/Problems Addressed
Differential Diagnosis Includes:
Depression
SI
Hypothyroid
Electrolyte Imbalance
UTI
MDM/Problems Addressed:
65-year-old male presented to the ER for evaluation of suicidal ideation but without any plan or intent. History of similar requiring admission at inpatient psychiatric facilities. Will check labs and urine. Reassessment following. Crisis
consultation ordered.
Chronic conditions affecting care: Psychiatric illness
Acute Exacerbation and/or Progression of Chronic Illness: Psychiatric illness
*Pulse Oximetry
SaO2: 92
Oxygen Mode of Delivery: Room air
Patient hypoxic: no
*Critical Care Note
Total Time (30-74mins, 75-104mins- exclusive of procedures): Not Applicable
Data Reviewed
Review of Other/Old Records Reveals: Labs and Records
Patient Management
Escalation/DeEscalation of care consider admission/obs:
Crisis evaluated patient. Stable for d/c back to [facility]. I attempted to contact [facility] to discuss patients return but no one picked up the phone. EMS to transport back to [facility]
ED Attending Note
-
Portions of this chart may have been created with voice recognition software.� Occasional wrong word or��sound alike� substitutions may have occurred due to the inherent limitations of voice recognition software.
Discharge Plan
Departure
Patient Disposition: Assisted/SNF
Date of Disposition: 09/05/25
Time of Disposition: 15:22
Patient with high blood pressure during this ER visit?: No
Discharge Problem:
Depression
Instructions: Depression, Adult (DC)
Prescriptions:
No Action
atorvastatin [Lipitor] 40 mg Tablet
40 mg PO HS
sennosides [senna] 8.6 mg Tablet
8.6 mg PO HS
acetaminophen [Tylenol] 325 mg Tablet
650 mg PO Q6HPRN PRN (Reason: MILD PAIN)
melatonin 3 mg Tablet
3 mg PO HS
tamsulosin [Flomax] 0.4 mg Capsule
0.4 mg PO QPM
levothyroxine [Synthroid] 50 mcg Tablet
50 mcg PO DAILY
bisacodyl [Dulcolax (bisacodyl)] 10 mg Suppository
10 mg SC DAILYPRN PRN (Reason: IF NO BM AFTR MOM)
pantoprazole [Protonix] 40 mg Tablet,Delayed Release (Dr/Ec)
40 mg PO DAILY
ferrous sulfate 325 mg (65 mg iron) Tablet
325 mg PO DAILY
docusate sodium [Colace] 100 mg Capsule
100 mg PO BID
montelukast [Singulair] 10 mg Tablet
10 mg PO HS
ipratropium bromide 17 mcg/actuation Hfa Aerosol Inhaler
2 puff INHALATION BID
magnesium hydroxide [Milk of Magnesia] 400 mg/5 mL Suspension
2,400 mg PO [id number] PRN (Reason: CONSTIPATION)
Fleet Enema 19-7 gram/118 mL Enema
118 ml SC DAILYPRN PRN (Reason: IF NO BM AFTR DULCOLAX)
Eliquis 5 mg Tablet
5 mg PO BID Qty: 60 0RF
diltiazem HCl 180 mg Capsule,Extended Release 24hr
180 mg PO DAILY Qty: 30 0RF
metoprolol tartrate 50 mg Tablet
50 mg PO BID Qty: 60 0RF
nystatin 100,000 unit/mL Suspension
5 ml PO QID Qty: 60 0RF
miconazole nitrate [Miconazorb AF] 2 % Powder
1 applic topical BID Qty: 85 0RF
divalproex 250 mg Tablet,Delayed Release (Dr/Ec)
250 mg PO BID Qty: 60 0RF
Referrals:
Elizabeth Pompa MD [Family Provider]
Interventions
Interventions:
*Risk Screen - Suicide Last Done: 09/05/25 13:33
*General Assessment Last Done: 09/05/25 13:33
*Neglect/Abuse Screening Last Done: 09/05/25 13:33
*ED- Fall Risk Assessment Last Done: 09/05/25 13:33
*ED COVID-19 Vaccine History Last Done: 09/05/25 13:33
*ED Influenza Vaccine History Last Done: 09/05/25 13:33
ED-Psychological Assessment Last Done: 09/05/25 13:58
Discharge Date and Time
Print Language: [place]IZ[place]
[2025-09-05 14:33] LABS: Hematocrit 42.0 % (39.0-52.0); Hemoglobin 13.6 g/dL (13.0-18.0); Mean Corp Hgb Conc. 32.4 g/dL (33.0-37.0); Mean Corpuscular Volume 93.1 fL (80.0-94.0); Nucleated Red Blood Cells % 0 % (-); Platelet Count 342 10^3/uL (130-400); Red Cell Dist. Width 14.7 % (11.5-14.5)
[2025-09-05 14:51] LABS: ALT (SGPT) 19 U/L (0-50); AST (SGOT) 21 U/L (17-59); Albumin 4.1 g/dl (3.5-5.0); Alkaline Phosphatase 60 U/L (38-126); Blood Urea Nitrogen 11 mg/dl (9-20); Calcium 9.7 mg/dl (8.4-10.2); Carbon Dioxide 26 mmol/L (22-30); Chloride 107 mmol/L (98-107); Estimated Creatinine Clearance 96 ml/min; Glucose 120 mg/dl (70-99); Potassium 3.7 mmol/L (3.5-5.1); Sodium 142 mmol/L (135-145); Total Protein 7.5 g/dl (6.3-8.2); eGFR > 60.00
[2025-09-05 15:21] LABS: Depakane 45.9 ug/ml (50.0-120.0)
[2025-09-05 17:58] VITALS: BP 123/70
== END 2025-09-05 18:49 ==
LOC: EMR 13:29
PROVIDERS: Physician Assistant Medical; EMERGENCY PHYSICIAN Emergency Medicine; FAMILY PHYSICIAN Internal Medicine
DX: F31.9 Bipolar disorder, unspecified (principal); E03.9 Hypothyroidism, unspecified; I11.0 Hypertensive heart disease with heart failure; I50.9 Heart failure, unspecified; Z87.440 Personal history of urinary (tract) infections
CPT/HCPCS: 99285; 80053; 80164; 85025

== ENCOUNTER 2025-09-16 23:17 | Emergency (ER) | payer OTHER, SELFPAY ==
[2025-09-16 23:29] VITALS: BP 148/84
[2025-09-16 23:33] VITALS: BMI 32.7
[2025-09-16] MEDS: ATIVAN 2 MG IV (23:33)
[2025-09-16 23:53] LABS: Hematocrit 49.4 % (39.0-52.0); Hemoglobin 15.6 g/dL (13.0-18.0); Mean Corp Hgb Conc. 31.6 g/dL (33.0-37.0); Mean Corpuscular Volume 95.0 fL (80.0-94.0); Nucleated Red Blood Cells % 0 % (-); Platelet Count 248 10^3/uL (130-400); Red Cell Dist. Width 14.4 % (11.5-14.5)
[2025-09-17 00:15] VITALS: BP 132/79
[2025-09-17] MEDS: NSS 1000 IV (00:40)
[2025-09-17 00:59] LABS: ALT (SGPT) 20 U/L (0-50); AST (SGOT) 22 U/L (17-59); Albumin 3.9 g/dl (3.5-5.0); Alkaline Phosphatase 65 U/L (38-126); Blood Urea Nitrogen 19 mg/dl (9-20); Calcium 9.5 mg/dl (8.4-10.2); Carbon Dioxide 21 mmol/L (22-30); Chloride 106 mmol/L (98-107); Estimated Creatinine Clearance 106 ml/min; Glucose 79 mg/dl (70-99); Lipase 93 U/L (23-300); Potassium 3.8 mmol/L (3.5-5.1); Sodium 140 mmol/L (135-145); Total Protein 7.1 g/dl (6.3-8.2); eGFR > 60.00
[2025-09-17 01:00] LABS: COVID-19 Antigen Negative (Negative)
[2025-09-17 02:00] VITALS: BP 138/87
--- NOTE | 2025-09-17 02:01 | ED.GENMED ---
History of Present Illness
General
Chief Complaint: Failure to Thrive
Source: patient and ambulance crew
Exam Limitations: none
Time Seen by Provider: 09/16/25 23:28
Nursing documentation reviewed up to this point in time: agreed with
History of Present Illness
History of Present Illness:
Note:
CHIEF COMPLAINT(S)
Not eating or drinking for two days, abdominal pain, dark urine, and leg pain.
HISTORY OF PRESENT ILLNESS
The patient is a 65-year-old male presenting with symptoms of not eating or drinking for the past two days. He reports feeling very thirsty, with dark urine described as being like 'dark iced tea.' He also complains of abdominal pain, indicating
that his abdomen feels full. The patient states that the pain is present when lying still and when pressure is applied. In addition, he reports leg pain. There has been no bowel movement for more than two days. Vital signs indicate a blood pressure
of 122/85 mmHg, heart rate of 109 beats per minute, and oxygen saturation of 97%. The patient has expressed hesitancy towards receiving IV fluids and undergoing a CT scan despite the recommendation due to concerns about potential pain and discomfort.
REVIEW OF SYSTEMS
- Urinary: Dark-colored urine described as 'dark iced tea.'
- Gastrointestinal: Abdominal fullness and pain, absence of bowel movement for over two days.
- Musculoskeletal: Leg pain.
PHYSICAL EXAM
General: Alert, no acute distress.
Skin: Warm, dry.
Head: Normocephalic, atraumatic.
Neck: Supple, trachea midline.
Eye Ears, nose, mouth and throat: Oral mucosa moist.
Cardiovascular: Normal peripheral perfusion, No edema.
Respiratory: Respirations are non-labored.
Gastrointestinal: Abdomen nondistended, but patient reports fullness and discomfort.
Back: Normal range of motion, Normal alignment.
Musculoskeletal: Normal ROM, complains of leg pain.
Neurological: Alert and oriented to person, place, time, and situation, No focal neurological deficit observed.
Psychiatric: Cooperative, appropriate mood & affect, though expressing reluctance about certain treatments.
PROBLEM LIST
Acute Problems:
- Dehydration due to lack of oral intake
- Abdominal pain and fullness
- Dark urine
- Leg pain
PLAN
1. Attempt to establish IV access to provide fluids for rehydration.
2. Administer oral hydration with ice chips and water as tolerated by the patient.
3. Conduct a CT scan of the abdomen to evaluate potential underlying causes of abdominal fullness and pain.
4. Monitor urine output and characteristics.
5. Pain management, particularly addressing leg pain, with consideration for medications as needed and agreed upon by the patient.
DIFFERENTIAL DIAGNOSIS
The Differential Diagnosis includes, in no particular order and is not limited to:
- Dehydration
- Urinary tract infection
- Acute kidney injury
- Bowel obstruction
- Constipation
- Abdominal distension
- Gastroenteritis
- Electrolyte imbalance
- Appendicitis
- Peripheral vascular disease
CARE-UPDATE
09/17/25 - 04:01
Patient tolerated fluids and solid foods without issues and maintained adequate hydration throughout. No new symptoms or complaints were reported. Lab work results, including CBC and CMP, were within normal limits. Imaging studies, including
abdominal, pelvic, and head CT scans, showed no abnormalities. Patient is stable for discharge and will be returned to the [facility] for continued care.
Disposition:
SUMMARY OF ENCOUNTER
The patient, a 65-year-old male, presented to the emergency department with complaints of not eating or drinking for two days, abdominal pain, dark urine, and leg pain. The management included attempts at rehydration, both intravenously and orally,
via ice chips and water. A CT scan of the abdomen was conducted to evaluate potential underlying causes of abdominal fullness and pain. The patient was monitored for urine output and characteristics while receiving pain management tailored to his
leg pain. Lab work including CBC and CMP was reviewed and found to be within normal limits, easing concerns about acute kidney injury or infection. Imaging studies including abdominal, pelvic, and head CT scans showed no abnormalities, contributing
to a stable clinical status. The patient tolerated fluids and solid foods without issues, indicating improvement in his condition, and was safely prepared for discharge.
DISPOSITION
Discharge.
INDEPENDENT REVIEW OF LABS AND INTERPRETATION OF TESTS
My independent review of CBC and CMP indicates all results are within normal limits.
My independent CT scan interpretation indicates no abnormalities in the abdomen, pelvis, or head.
PLAN
1. Ensure the patient continues adequate oral hydration.
2. Continue monitoring for bowel movements and urine output at the [facility].
3. Follow up with [facility] staff to address leg pain management and monitor for any new symptoms.
FOLLOW-UP INSTRUCTIONS
Ensure the [facility] staff is updated on the patients condition and follow-up care, including pain management and hydration monitoring.
MEDICAL DECISION MAKING
-Complexity of Data Reviewed:
Chronic conditions affecting care. The differential diagnosis included dehydration, urinary tract infection, acute kidney injury, bowel obstruction, constipation, abdominal distension, gastroenteritis, electrolyte imbalance, appendicitis, and
peripheral vascular disease.
-Data:
Category 1
My independent interpretation of lab work (CBC, CMP) and imaging (CT scan) was conducted, confirming no significant abnormalities and negating immediate acute concerns.
-Risk:
Consideration of Admission/Observation: Escalation of care including admission/observation was considered given the complexity and risk of the patients presenting complaint, exam findings, and/or their underlying comorbidities. However, ultimately I
feel the patient is safe for outpatient management with close follow-up. Reasoning: Work-up reassuring, does not reveal any acute life/organ-threatening processes, patients symptoms well controlled upon reevaluation, reexamination is reassuring,
vitals are stable, patient agreeable with discharge, reliable for follow-up.
DIAGNOSIS
Dehydration - E86.0
Abdominal pain, unspecified site - R10.9
Dark urine - R80.3 (indicative of hematuria, while the exact cause was not specified, felt safe for discharge following work-up)
Leg pain - M79.604
Past History
Past History
ED Past Medical History: Arrthythmia, Cancer, GERD, HTN, Seizures, Hypothyroidism and Psychiatric
ED Past Surgical History: Orthopedic
Social History
Tobacco: Non-smoker
Alcohol: Occasional
Drug: Former user
Personal: Single
Living: [facility]
Phy Exam
Physical Exam
Physical Exam:
.
Course
Orders/Labs/Results
Orders:
Orders
09/16/25 23:29
Electrocardiogram (*1) Urgent
Reason for Study: Abdominal Pain
EKG- Treatment ONCE
09/16/25 23:30
Complete Blood Count/With Diff Urgent
Lorazepam [Ativan] 2 mg .ROUTE .STK-MED ONE
09/16/25 23:32
Lorazepam [Ativan] 2 mg IV NOW STA
09/16/25 23:36
Lactic Acid Urgent
Chest X-ray Portable [CR Chest Portable - 1 View] Urgent
Comment:
Reason For Exam: cough
Reason Study Needs to be Portable: Unable to Transport
09/16/25 23:53
Comprehensive Metabolic Panel Urgent
Comment: REDRAW
Lipase Urgent
09/17/25 00:23
COVID-19 Antigen Urgent
Source: Nasal Swab
Influenza A+B Rapid Molecular Urgent
JUSTINE Source: Nasal Swab
Specimen Description:
09/17/25 00:39
0.9% Sodium Chloride 1000 ml [Nss] 1,000 ml IV BOLUS
09/17/25 00:43
CT Abd/pelvis W Iv Cont Urgent
Comment:
Reason For Exam: abd pain
CT Head W/o Iv Contrast Urgent
Comment:
Reason For Exam: ams
Abnormal Lab Results
09/16/25 09/17/25
23:30 00:19
MCV 95.0 H fL
(80.0-94.0)
MCHC 31.6 L g/dL
(33.0-37.0)
Absolute Neuts (auto) 7.1 H 10^3/uL
(1.4-6.5)
Absolute Monos (auto) 0.9 H 10^3/uL
(0.1-0.6)
Lymphocytes % 17.9 L %
(20.5-51.1)
Monocytes % 9.4 H %
(1.7-9.3)
Carbon Dioxide 21 L mmol/L
(22-30)
09/16/25 23:30
09/17/25 00:19
Vital Signs
Initial and Last Documented VS:
Initial Vital Signs
BP
148/84
09/16/25 23:29
Last Documented Vital Signs
Temp Pulse Resp BP Pulse Ox
98.9 F 98 20 159/104 96
09/17/25 00:15 09/17/25 05:04 09/17/25 05:04 09/17/25 05:04 09/17/25 05:04
*Radiology
Radiology exam reviewed: radiology read reviewed
*Pulse Oximetry
SaO2: 94
Oxygen Mode of Delivery: Room air
Patient hypoxic: no
*Critical Care Note
Total Time (30-74mins, 75-104mins- exclusive of procedures): Not Applicable
Update Note
Update Note:
NAME: TENA HURD
DATE OF EXAM: 09/17/2025
Patient No: [id number]
Physician: JOSE
Date of : 1960
Past Medical History (entered by Technologist):
Reason For Exam (entered by Technologist):
Other Notes (entered by Technologist): Patient coming from [facility] via EMS for failure to thrive. Patient has refused to eat/drink along with refusing medications in the past two days. EMS reports BP 122/85, HR 109 bpm, POX 97%.
Additional Information (per [facility] Radiologist):
CT HEAD
IMPRESSION:
No acute hemorrhage, herniation, or hydrocephalus.
No calvarial fracture.
The visualized paranasal sinuses and mastoid air cells are clear.
CT ABDOMEN/PELVIS WITH CONTRAST
IMPRESSION:
1. No acute abnormality within the abdomen or pelvis.
2. No bowel obstruction. Normal gallbladder and appendix
Incidentals:
- Diverticulosis
- No obstructive uropathy.
- No hepatic or pancreatic mass.
- No abdominal aortic aneurysm.
- No acute osseous abnormality.
- Bibasilar atelectasis
- No acute abnormality within the visualized soft tissues.
ED Attending Note
-
Portions of this chart may have been created with voice recognition software.� Occasional wrong word or��sound alike� substitutions may have occurred due to the inherent limitations of voice recognition software.
Discharge Plan
Departure
Patient Disposition: Senior Care/SNF
Date of Disposition: 09/17/25
Time of Disposition: 04:08
Condition: Good
Discharge Problem:
Acute dehydration, Failure to thrive
Instructions: Dehydration in adults - ED (DC)
Prescriptions:
No Action
atorvastatin [Lipitor] 40 mg Tablet
40 mg PO HS
sennosides [senna] 8.6 mg Tablet
8.6 mg PO HS
acetaminophen [Tylenol] 325 mg Tablet
650 mg PO Q6HPRN PRN (Reason: MILD PAIN)
melatonin 3 mg Tablet
3 mg PO HS
tamsulosin [Flomax] 0.4 mg Capsule
0.4 mg PO QPM
levothyroxine [Synthroid] 50 mcg Tablet
50 mcg PO DAILY
bisacodyl [Dulcolax (bisacodyl)] 10 mg Suppository
10 mg OR DAILYPRN PRN (Reason: IF NO BM AFTR MOM)
pantoprazole [Protonix] 40 mg Tablet,Delayed Release (Dr/Ec)
40 mg PO DAILY
ferrous sulfate 325 mg (65 mg iron) Tablet
325 mg PO DAILY
docusate sodium [Colace] 100 mg Capsule
100 mg PO BID
montelukast [Singulair] 10 mg Tablet
10 mg PO HS
ipratropium bromide 17 mcg/actuation Hfa Aerosol Inhaler
2 puff INHALATION BID
magnesium hydroxide [Milk of Magnesia] 400 mg/5 mL Suspension
2,400 mg PO [id number] PRN (Reason: CONSTIPATION)
Fleet Enema 19-7 gram/118 mL Enema
118 ml OR DAILYPRN PRN (Reason: IF NO BM AFTR DULCOLAX)
Eliquis 5 mg Tablet
5 mg PO BID Qty: 60 0RF
diltiazem HCl 180 mg Capsule,Extended Release 24hr
180 mg PO DAILY Qty: 30 0RF
metoprolol tartrate 50 mg Tablet
50 mg PO BID Qty: 60 0RF
nystatin 100,000 unit/mL Suspension
5 ml PO QID Qty: 60 0RF
miconazole nitrate [Miconazorb AF] 2 % Powder
1 applic topical BID Qty: 85 0RF
divalproex 250 mg Tablet,Delayed Release (Dr/Ec)
250 mg PO BID Qty: 60 0RF
Referrals:
Elizabeth Pompa MD [Family Provider]
Interventions
Interventions:
*Risk Screen - Suicide Last Done: 09/16/25 23:34
*General Assessment Last Done: 09/16/25 23:34
*Neglect/Abuse Screening Last Done: 09/16/25 23:34
*ED- Fall Risk Assessment Last Done: 09/16/25 23:26
*ED COVID-19 Vaccine History Last Done: 09/16/25 23:26
*ED Influenza Vaccine History Last Done: 09/16/25 23:26
*Nursing Disposition Last Done: 09/17/25 05:05
Discharge Date and Time
Discharge Date/Time: 09/17/25 05:06
Print Language: GABONESE
[2025-09-17 05:04] VITALS: BP 159/104
== END 2025-09-17 05:06 ==
LOC: EMR 23:17
PROVIDERS: EMERGENCY PHYSICIAN Student in an Organized Health Care Education/Training Program; FAMILY PHYSICIAN Internal Medicine
DX: E86.0 Dehydration (principal); R62.7 Adult failure to thrive; Z68.32 Body mass index [BMI] 32.0-32.9, adult; I10 Essential (primary) hypertension; E03.9 Hypothyroidism, unspecified; K21.9 Gastro-esophageal reflux disease without esophagitis
CPT/HCPCS: 99284; 96360; 70450; 71045; 74177; 80053; 83605; 83690; 85025; 87502; 87811; 93005; Q9967

== ENCOUNTER 2025-09-25 20:35 | Inpatient (IN) | payer OTHER, SELFPAY ==
[2025-09-25 17:29] VITALS: BP 102/68
[2025-09-25 17:51] VITALS: BMI 30.5
[2025-09-25 17:54] LABS: Hematocrit 49.5 % (39.0-52.0); Hemoglobin 15.9 g/dL (13.0-18.0); Mean Corp Hgb Conc. 32.1 g/dL (33.0-37.0); Mean Corpuscular Volume 93.0 fL (80.0-94.0); Nucleated Red Blood Cells % 0 % (-); Platelet Count 287 10^3/uL (130-400); Red Cell Dist. Width 13.8 % (11.5-14.5)
[2025-09-25 18:00] VITALS: BP 119/94
[2025-09-25 18:09] LABS: COVID-19 Antigen Negative (Negative)
--- NOTE | 2025-09-25 18:17 | ED.GENMED ---
History of Present Illness
General
Chief Complaint: Abdominal Symptoms
Source: patient, records and halfway
Exam Limitations: dementia
Time Seen by Provider: 09/25/25 17:30
Nursing documentation reviewed up to this point in time: agreed with
History of Present Illness
History of Present Illness:
65-year-old male with a past medical history as noted significant for hypertension, CHF, atrial flutter, BPH with chronic Zamorano catheter, distant history of polysubstance use who presents from [facility] for evaluation of issues with
his catheter. According to EMS report patient has been complaining that his catheter is not draining appropriately and today pulled his catheter loose which prompted referral to the ER. Patient is confused and agitated here and is a very poor
historian. He continually insists that his catheter is not working appropriately and that urine is 'getting everywhere' even after catheter was exchanged shortly after arrival. Apparently was complaining of feeling chills and pressure in his
abdomen. I spoke to the staff at [facility] directly�they report that he was in his normal state of health until today he started complaining of abdominal pain and was noted to be tachycardic and sweaty. He is more confused than typical. Has a
history of UTIs and there was concern because he was pulling at his catheter. Was sent to the ER for assessment.
Past History
Past History
ED Past Medical History: Arrthythmia, Cancer, GERD, HTN, Seizures, Hypothyroidism and Psychiatric
ED Past Surgical History: Orthopedic
Social History
Tobacco: Non-smoker
Alcohol: Occasional
Drug: Former user
Personal: Single
Living: halfway
Review of Systems
Review of Systems
Unable to obtain full review of systems at this time due to: other (Confused)
All Other Systems: Not applicable
Phy Exam
Physical Exam
Physical Exam:
General: Awake, alert, extremely agitated and aggressive towards staff
Head: Normocephalic, atraumatic
Eyes: Conjunctiva normal
Throat: Airway intact, handling secretions
Neck: Trachea midline, supple without meningismus
Lungs: Clear to auscultation bilaterally, no wheezing, rales, rhonchi
Heart: Tachycardia with regular rhythm
Abd: Soft, non distended, mild suprapubic tenderness
: Patient arrived with a [address] catheter in place with bag disconnected and urine draining freely from the catheter; after catheter exchange urine flowing freely into Zamorano bag dark yellow with significant sediment
Neuro: Moves all extremities equally
Skin: Warm and dry
Extremities: No edema noted
Scores
Heart Failure Risk
Heart Failure Risk Score: Not Applicable
Heart Score for Chest Pain Patients
STEMI patient?: Not applicable
Withdrawal Assessment of Alcohol
Withdrawal Assessment Completed?: Not applicable
Course
Orders/Labs/Results
Orders:
Orders
09/25/25 17:32
Electrocardiogram (*1) Urgent
Reason for Study: Abdominal Pain
EKG- Treatment ONCE
09/25/25 17:46
Basic Metabolic Panel Urgent
COVID-19 Antigen Urgent
Source: Nasal Swab
Complete Blood Count/With Diff Urgent
Lipase Urgent
Influenza A+B Rapid Molecular Urgent
JUSTINE Source: Nasal Swab
Specimen Description:
09/25/25 18:16
Haloperidol Lactate [Haldol] 2.5 mg IV NOW STA
Lorazepam [Ativan] 2 mg IV NOW STA
Restraints - Non Violent As Directed
Justification-Patient:: 1-Attempts to remove tube
Restraint Type-: Soft Limb-4 point/4 rails
Apply From (date): 09/25/25
Apply from (time): 18:16
Remove (date): 09/26/25
Remove (time): 23:59
09/25/25 18:17
CefTRIAXone [Rocephin] 1,000 mg IV NOW STA
Haloperidol Lactate [Haldol] 5 mg .ROUTE .STK-MED ONE
Lorazepam [Ativan] 2 mg .ROUTE .STK-MED ONE
09/25/25 18:45
Sterile Water [Sterile Water For Injection] 10 ml .ROUTE .STK-MED ONE
09/25/25 18:49
Urinalysis Reflex To Culture Urgent
Date Specimen was Collected: 09/25/25
Time Specimen was Collected: 18:43
Urine Microscopic Reflex Cult Urgent
Urine Culture Urgent
JUSTINE Source: U
Specimen Description:
Date Specimen was Collected: 09/25/25
Time Specimen was Collected: 18:43
09/25/25 19:26
Lactate Level [Lactic Acid] Urgent
0.9% Sodium Chloride 1000 ml [Nss] 1,000 ml IV BOLUS
09/25/25 19:30
Blood Culture Q30M
JUSTINE Source: Blood/Venous
Specimen Description:
09/25/25 20:00
Blood Culture Q30M
JUSTINE Source: Blood/Venous
Specimen Description:
Abnormal Lab Results
09/25/25 09/25/25
17:46 18:49
MCHC 32.1 L g/dL
(33.0-37.0)
Absolute Lymphs (auto) 1.1 L 10^3/uL
(1.2-3.4)
Absolute Monos (auto) 0.7 H 10^3/uL
(0.1-0.6)
Neutrophils % 77.2 H %
(42.2-75.2)
Lymphocytes % 13.1 L %
(20.5-51.1)
Carbon Dioxide 19 L mmol/L
(22-30)
BUN 22 H mg/dl
(9-20)
Glucose 121 H mg/dl
(70-99)
Urine Ketones 3+ A
(Negative)
Ur Occult Blood Reflex 4+ A
(Negative)
Urine Bilirubin 1+ A
(Negative)
Urine Urobilinogen 2+ A
(Neg - 1+)
Leukocyte Esterase Rfl 3+ A
(Negative)
Urine Glucose 1+ A
(Negative)
Urine Albumin (Reflex) 4+ A
(Neg - Trace)
09/25/25 17:46
09/25/25 17:46
Vital Signs
Initial and Last Documented VS:
Initial Vital Signs
Pulse Resp Pulse Ox
124 16 97
09/25/25 17:28 09/25/25 17:28 09/25/25 17:28
Last Documented Vital Signs
Temp Pulse Resp BP Pulse Ox
36.8 C 114 25 115/79 92
09/25/25 17:29 09/25/25 19:00 09/25/25 18:30 09/25/25 19:00 09/25/25 19:00
MDM/Problems Addressed
Differential Diagnosis Includes:
UTI, urinary retention
MDM/Problems Addressed:
65-year-old male with history as noted presents with increased confusion/agitation, suprapubic discomfort and discomfort from his catheter. He is tachycardic but otherwise normal vitals. He arrived with Zamorano catheter in place but bag with loose
and catheter open to the air. Catheter was exchanged on arrival. He is agitated and aggressive here towards staff and multiple attempts at redirection unsuccessful. Required soft restraints and chemical restraint with Haldol/Ativan for patient
and staff safety as he has been screaming and swinging at staff, grabbing their arms and attempting to forcibly remove his Zamorano catheter. Will send off labs and urinalysis. Treat empirically for UTI which is suspected diagnosis. Plan likely for
admission here.
Patient now much more calm after sedation. Vitals stable. Continue to monitor pending labs and urine studies.
UA positive for infection. Labs reviewed CBC and CMP no clinically significant abnormalities. I did add lactate and blood cultures given his tachycardia and tachypnea. Urine culture sent off. Plan to admit for continued management of confusion
secondary to UTI. Discussed case with hospitalist.
*Pulse Oximetry
SaO2: 96
Oxygen Mode of Delivery: Room air
Patient hypoxic: no (96%)
*EKG
Interpreted by ED Provider?: Yes
Heart Rate: 116
Rate: tachycardiac
Rhythm: sinus and sinus tachycardia
[place]: left axis deviation
Interval: normal interval and normal QT interval
*Critical Care Note
Total Time (30-74mins, 75-104mins- exclusive of procedures): Not Applicable
Data Reviewed
Review of Other/Old Records Reveals: Labs and Records
Source: patient, records, ambulance crew and halfway
Patient Management
Discussion with other providers: Hospitalist (Discussed with hospitalist) and senior living staff (Discussed directly with halfway staff)
Escalation/DeEscalation of care consider admission/obs:
Admission indicated
ED Attending Note
-
Portions of this chart may have been created with voice recognition software.� Occasional wrong word or��sound alike� substitutions may have occurred due to the inherent limitations of voice recognition software.
Discharge Plan
Departure
Patient Disposition: Admit
Date of Disposition: 09/25/25
Time of Disposition: 19:25
Admit to doctor: Anita
Presentation/result/management discussed w/ accepting MD/DO: Hospitalist
Discharge Problem:
Acute UTI, Encephalopathy
Prescriptions:
No Action
atorvastatin [Lipitor] 40 mg Tablet
40 mg PO HS
sennosides [senna] 8.6 mg Tablet
8.6 mg PO HS
acetaminophen [Tylenol] 325 mg Tablet
650 mg PO Q6HPRN PRN (Reason: MILD PAIN/fever)
melatonin 3 mg Tablet
3 mg PO HS
tamsulosin [Flomax] 0.4 mg Capsule
0.4 mg PO QPM
levothyroxine [Synthroid] 50 mcg Tablet
50 mcg PO DAILY
bisacodyl [Dulcolax (bisacodyl)] 10 mg Suppository
10 mg OH DAILYPRN PRN (Reason: IF NO BM AFTR MOM)
pantoprazole [Protonix] 40 mg Tablet,Delayed Release (Dr/Ec)
40 mg PO DAILY
ferrous sulfate 325 mg (65 mg iron) Tablet
325 mg PO DAILY
docusate sodium [Colace] 100 mg Capsule
100 mg PO BID
montelukast [Singulair] 10 mg Tablet
10 mg PO HS
ipratropium bromide 17 mcg/actuation Hfa Aerosol Inhaler
2 puff INHALATION BID
magnesium hydroxide [Milk of Magnesia] 400 mg/5 mL Suspension
2,400 mg PO [id number] PRN (Reason: CONSTIPATION)
Fleet Enema 19-7 gram/118 mL Enema
118 ml [place] DAILYPRN PRN (Reason: IF NO BM AFTR DULCOLAX)
Eliquis 5 mg Tablet
5 mg PO BID Qty: 60 0RF
diltiazem HCl 180 mg Capsule,Extended Release 24hr
180 mg PO DAILY Qty: 30 0RF
metoprolol tartrate 50 mg Tablet
50 mg PO BID Qty: 60 0RF
nystatin 100,000 unit/mL Suspension
5 ml PO QID Qty: 60 0RF
miconazole nitrate [Miconazorb AF] 2 % Powder
1 applic topical BID Qty: 85 0RF
divalproex 250 mg Tablet,Delayed Release (Dr/Ec)
250 mg PO BID Qty: 60 0RF
venlafaxine [Effexor XR] 75 mg Capsule,Extended Release 24hr
75 mg PO DAILY
loperamide [Imodium A-D] 2 mg Tablet
2 mg PO Q8H PRN (Reason: diarrhea)
lorazepam [Ativan] 0.5 mg Tablet
0.5 mg PO Q12H PRN (Reason: restlessness)
Referrals:
Dayanna Philip MD [Family Provider]
Interventions
Interventions:
*Risk Screen - Suicide Last Done: 09/25/25 17:45
*General Assessment Last Done: 09/25/25 17:45
*Neglect/Abuse Screening Last Done: 09/25/25 17:45
*ED- Fall Risk Assessment Last Done: 09/25/25 17:45
*ED COVID-19 Vaccine History Last Done: 09/25/25 17:45
*ED Influenza Vaccine History Last Done: 09/25/25 17:45
Discharge Date and Time
Print Language: [place] ISLAND[place]
[2025-09-25] MEDS: ATIVAN 2 MG IV (18:20)
[2025-09-25 18:21] LABS: Blood Urea Nitrogen 22 mg/dl (9-20); Calcium 9.4 mg/dl (8.4-10.2); Carbon Dioxide 19 mmol/L (22-30); Chloride 104 mmol/L (98-107); Estimated Creatinine Clearance 82 ml/min; Glucose 121 mg/dl (70-99); Lipase 170 U/L (23-300); Sodium 136 mmol/L (135-145); eGFR > 60.00
[2025-09-25] MEDS: HALDOL 2.5 MG IV (18:24)
--- NOTE | 2025-09-25 18:30 | EDRN ---
since this pts arrival, the pt has been cursing at nursing staff. Per Dr Howe verbal order, this pts existing indwelling tejeda catheter was removed. Both ER Dr Howe and this ENVIRONMENTAL RESOURCE SPECIALIST educated the pt on why the pt needs to have a new tejeda catheter.
this ENVIRONMENTAL RESOURCE SPECIALIST continues to curse at this ENVIRONMENTAL RESOURCE SPECIALIST calling this RN a 'motherfucker.' ER Dr Howe was present at this pts bedside when this ENVIRONMENTAL RESOURCE SPECIALIST inserted this pts new indwelling 14 [place] COUDE tejeda catheter. After insertion of tejeda catheter was
complete, the pt started screaming at this ENVIRONMENTAL RESOURCE SPECIALIST, grabbing this ER RNs arms, and attempting to pull out the newly inserted tejeda catheter. security guards were called for assistance due to this pt attempting to harm staff.
Dr Howe gave orders for medication to be given to this pt for agitation, see EMAR.
Dr Howe verbal order, soft wrist restraints were applied to the pts bilateral wrists at this time
[2025-09-25] MEDS: ROCEPHIN 1000 MG IV (18:55)
[2025-09-25 19:00] VITALS: BP 115/79
[2025-09-25 19:03] LABS: Urine Character Cloudy (Clear)
[2025-09-25 19:34] LABS: Urine Red Blood Cell 30-40 /HPF (0-2); Urine White Cell 50-60 /HPF (0-5)
[2025-09-25] MEDS: NSS 1000 IV ×2 (19:47→22:29)
--- NOTE | 2025-09-25 19:47 | W.PN.UPDATE ---
Update Note
Progress Note Update
Patient seen in conjunction with nurse practitioner. I agree with the findings on history and physical. I concur with assessment and plan unless stated otherwise.
Briefly, this is a 67-year-old male with past medical history significant for bipolar 1 disorder, major depression refractory, generalized anxiety disorder, MOLLY, BPH with chronic urinary retention, prior history of polysubstance abuse, hypertension,
hyperlipidemia, hypothyroid, iron deficiency, GERD, asthma, history of prostate cancer, who recently developed atrial flutter/fibrillation now on anticoagulation, preserved EF, recent admission to the hospital for encephalopathy with negative workup
for an acute intracranial process and thought to be secondary to urinary tract infection complicated by lithium toxicity with hospital course complicated by DEANA, ileus and Bellevue's, new onset Aflutter, now presenting to the emergency department
again with confusion and complaints of urinary symptoms .
Per nursing staff patient been in usual state of health up until today when he started complaining of abdominal pain and was noted to be tachycardic and sweaty. He was more confused than usual. He had complained of his catheter not working
appropriately and urine came everywhere even after his catheter was exchanged shortly after arrival in the emergency department. There are chills. He was agitated and required sedating medications in the emergency department. Elevated urine from.
There was a thick cloudy.
In the emergency department he has been afebrile, blood pressure is 115/79 with a pulse rate of 110 and he was satting 94% on room air. ECG shows sinus tachycardia at rate of [address]-T wave changes. Labs shows normal white count
hemoglobin and platelets. Electrolytes BUN and creatinine were unremarkable. COVID test was negative. Flu test was negative. UA was markedly positive.
Assessment and plan:
Confusion, suspect toxic encephalopathy from recurrent uti/catheter related infection - Patient with complaint of chills, abdominal discomfort, dysuria and has thick cloudy urine with + u/a (indwelling catheter). No fevers or leukocytosis. Renal
function is normal. Has prior CT with non-obstructing stones.
- admit to telemetry
- given confusion, blood cultures also sent
- Continue IV ceftriaxone for now
- flu/covid negative
- no indication for repeat neuro-imaging at this time.
- continue indwelling catheter
- continue tamsulosin
AFlutter/FIB - Sinus tachycardia on ECG
- telemetry
- continue AC with apixban
- rate control with diltiazem
- continue metoprolol 50mg bid
Bipolar d/o/ MDD w/ tardive dyskinesia 2/2 lithium toxicity - acute on chronic delirium
- continue valproic acid, fairly low dose unlikely elevated levels, if no improvement consider levels in am
- continue effexor
- prn lorazepm po for agitation
Hypothyroid
- continue syhthroid
Respiratory - h/o asthma and MOLLY
- continue montelukast prn kev
- not tolerating cpap, h/o aspiration, continue 3 L by NC
DVT PPX - on apixaban
Code status - Full code
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
[2025-09-25 20:00] VITALS: BP 130/98
[2025-09-25 21:00] VITALS: BP 126/87
[2025-09-25] MEDS: MELATONIN 3 MG PO (22:49)
[2025-09-25] MEDS: LIPITOR 40 MG PO (22:50)
[2025-09-25] MEDS: SENOKOT 8.6 MG PO (22:50)
[2025-09-25] MEDS: SINGULAIR 10 MG PO (22:50)
[2025-09-25] MEDS: MYCOSTATIN ORAL SUSPENSION PO (22:51)
[2025-09-25 23:00] VITALS: BP 143/79
[2025-09-26 01:40] VITALS: BMI 30.5
--- NOTE | 2025-09-26 02:19 | PTCARENOTE ---
Pt arrived to unit via stretcher in 4 point restraints. Pt now in 2 soft limb restraints and calm. Bed alarm on, bed set in lowest position, side rails up, will continue plan of care.
[2025-09-26 03:20] VITALS: BP 138/72
[2025-09-26] MEDS: SYNTHROID 50 MCG PO (05:20)
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
--- NOTE | 2025-09-26 07:45 | PTCARENOTE ---
This AM at 730 I realized tele QT was prolonged at 0.48. EKG obtained as pt had IV haldol in er. As per IV protocol, i did put in stat EKG For this am and another for tomorow at 6 AM. EKG confirmed prolonged QTC and is aware.
[2025-09-26] MEDS: ATROVENT NEBULES 0.5 MG INH ×2 (07:49→19:26)
[2025-09-26 08:04] VITALS: BP 143/86
[2025-09-26] MEDS: LOPRESSOR 50 MG PO ×2 (08:25→21:51)
[2025-09-26] MEDS: COLACE 100 MG PO ×2 (08:25→21:56)
[2025-09-26] MEDS: TYLENOL 650 MG PO (08:25)
[2025-09-26] MEDS: EFFEXOR XR 75 MG PO (08:25)
[2025-09-26] MEDS: FEOSOL 325 MG PO (08:26)
[2025-09-26] MEDS: CARDIZEM CD 180 MG PO (08:26)
[2025-09-26] MEDS: DEPAKOTE (12 HR RELEASE) 250 MG PO ×2 (08:26→21:51)
[2025-09-26] MEDS: PROTONIX 40 MG PO (08:26)
[2025-09-26] MEDS: DESENEX/MITRAZOL/ZEASORB 1 APPLIC TOPICAL ×2 (08:26→21:57)
[2025-09-26] MEDS: ELIQUIS 5 MG PO ×2 (08:26→21:51)
[2025-09-26] MEDS: MYCOSTATIN ORAL SUSPENSION 5 ML PO (08:26)
[2025-09-26] MEDS: NSS 1000 IV ×2 (08:27→17:01)
--- NOTE | 2025-09-26 10:50 | PTCARENOTE ---
Report given with yisel wrist restraints with 4 side rails up. This was verified upon iniital assessment. Circ checks WN> At 1030 AM i realized the order was for four point restraints and immediatly spoke with MD who down graded to 2 soft limb
restraints and four side rails
[2025-09-26 11:21] VITALS: BP 125/83
--- NOTE | 2025-09-26 14:17 | PTCARENOTE ---
This nurse noticed that there are no orders for tejeda but patient has a chronic tejeda. I did send a message asking what the indicator of continued use are and to obtain orders if he desired tejeda cath
[2025-09-26] MEDS: MYCOSTATIN ORAL SUSPENSION PO ×3 (14:22→21:53)
--- NOTE | 2025-09-26 14:38 | CM ---
Patient seen at bedside
IA completed
dx: pyuria, poss cauti, acute/chronic agitation
patient has an extensive past medical history depressive d/o, suicide ideation, Bipolar 1, IVDA.
Patient with sleep apnea and is on BIPAP machine.
Patient was transferred to [facility] from [facility] psychiatry [facility] 07/16/25
Referral entered in [facility] to return to [facility]
called Rahel from [facility] has not been ambulatory
PCP: Dr. Pompa
Pharmacy: [facility]
PLAN: Return to [facility] when stable
[facility] Report: [phone]
[facility]
[2025-09-26 15:00] VITALS: BP 153/94
[2025-09-26] MEDS: FLOMAX PO (16:58)
[2025-09-26] MEDS: ROCEPHIN 1000 MG IV (17:01)
--- NOTE | 2025-09-26 18:13 | PTCARENOTE ---
Pt refused labs. He yelled very violently at us and told me he has rights
--- NOTE | 2025-09-26 18:14 | PTCARENOTE ---
was made aware of refusal of labs
[2025-09-26 19:00] VITALS: BP 178/85
[2025-09-26] MEDS: SENOKOT 8.6 MG PO (21:50)
[2025-09-26] MEDS: LIPITOR 40 MG PO (21:51)
[2025-09-26] MEDS: SINGULAIR 10 MG PO (22:04)
[2025-09-26] MEDS: MELATONIN 3 MG PO (22:04)
--- NOTE | 2025-09-27 00:11 | PTCARENOTE ---
Vital signs were not performed on patient because he refused.
[2025-09-27] MEDS: NSS 1000 IV ×2 (02:31→13:13)
[2025-09-27 03:00] VITALS: BP 146/80
[2025-09-27] MEDS: SYNTHROID PO (05:18)
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
[2025-09-27 07:18] VITALS: BP 150/81
[2025-09-27] MEDS: ATROVENT NEBULES INH ×2 (07:27→19:12)
--- NOTE | 2025-09-27 07:31 | RESPNOTE ---
pt refused neb tx stating i don't like it and i don't want it.
education was provided for benefits of the neb treatment, pt became verbally aggressive and stated, get the f*ck out of my room.
no treatment administered at this time
[2025-09-27] MEDS: PROTONIX 40 MG PO (08:46)
[2025-09-27] MEDS: FEOSOL 325 MG PO (08:46)
[2025-09-27] MEDS: COLACE 100 MG PO ×2 (08:48→21:14)
[2025-09-27] MEDS: DEPAKOTE (12 HR RELEASE) 250 MG PO (08:48)
[2025-09-27] MEDS: EFFEXOR XR 75 MG PO (08:48)
[2025-09-27] MEDS: ELIQUIS 5 MG PO ×2 (08:48→21:15)
[2025-09-27] MEDS: DESENEX/MITRAZOL/ZEASORB 1 APPLIC TOPICAL ×2 (08:53→21:16)
[2025-09-27] MEDS: LOPRESSOR PO (08:59)
[2025-09-27] MEDS: MYCOSTATIN ORAL SUSPENSION PO ×4 (08:59→21:14)
[2025-09-27] MEDS: CARDIZEM CD PO (09:00)
[2025-09-27 10:51] VITALS: BP 153/81
--- NOTE | 2025-09-27 12:07 | PTOTSP ---
Chart reviewed and spoke with RN. Patient is bedbound and total care at [facility]. He is not appropriate for skilled therapy at this time and will be discharged. Discussed with RN.
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
[2025-09-27 12:38] LABS: Hematocrit 44.9 % (39.0-52.0); Hemoglobin 14.4 g/dL (13.0-18.0); Mean Corp Hgb Conc. 32.1 g/dL (33.0-37.0); Mean Corpuscular Volume 96.4 fL (80.0-94.0); Platelet Count 250 10^3/uL (130-400); Red Cell Dist. Width 14.0 % (11.5-14.5)
[2025-09-27] MEDS: NSS (PRESERVATIVE FREE) 0.5 ML IV ×2 (12:53→17:05)
[2025-09-27] MEDS: ATIVAN 1 MG IV ×2 (12:54→17:05)
[2025-09-27] MEDS: TYLENOL 650 MG PO ×2 (13:17→17:20)
[2025-09-27 13:21] LABS: Blood Urea Nitrogen 14 mg/dl (9-20); Calcium 9.3 mg/dl (8.4-10.2); Carbon Dioxide 24 mmol/L (22-30); Chloride 108 mmol/L (98-107); Estimated Creatinine Clearance 117 ml/min; Glucose 90 mg/dl (70-99); Potassium 3.6 mmol/L (3.5-5.1); Sodium 142 mmol/L (135-145); eGFR > 60.00
[2025-09-27 15:15] VITALS: BP 170/86
[2025-09-27] MEDS: FLOMAX 0.4 MG PO (17:04)
[2025-09-27] MEDS: ROCEPHIN 1000 MG IV (17:07)
[2025-09-27] MEDS: STERILE WATER FOR INJECTION 10 ML IV (17:29)
[2025-09-27] MEDS: DEPAKOTE (12 HR RELEASE) PO (19:30)
[2025-09-27 20:00] VITALS: BP 153/91
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
[2025-09-27] MEDS: ABILIFY 10 MG PO (21:13)
[2025-09-27] MEDS: DEPAKOTE (12 HR RELEASE) 500 MG PO (21:13)
[2025-09-27] MEDS: LIPITOR 40 MG PO (21:14)
[2025-09-27] MEDS: SENOKOT 8.6 MG PO (21:14)
[2025-09-27] MEDS: LOPRESSOR 50 MG PO (21:15)
[2025-09-27] MEDS: MELATONIN 3 MG PO (21:18)
[2025-09-27] MEDS: SINGULAIR 10 MG PO (21:18)
[2025-09-27 22:53] VITALS: BP 137/74
[2025-09-28] MEDS: NSS 1000 IV ×3 (00:25→20:37)
[2025-09-28 03:46] VITALS: BP 144/77
[2025-09-28] MEDS: SYNTHROID 50 MCG PO (06:27)
[2025-09-28] MEDS: ATIVAN 1 MG IV (06:49)
[2025-09-28] MEDS: NSS (PRESERVATIVE FREE) 0.5 ML IV (06:50)
[2025-09-28] MEDS: TYLENOL 650 MG PO ×3 (06:50→20:35)
[2025-09-28 06:59] LABS: Hematocrit 37.1 % (39.0-52.0); Hemoglobin 12.2 g/dL (13.0-18.0); Mean Corp Hgb Conc. 32.9 g/dL (33.0-37.0); Mean Corpuscular Volume 93.2 fL (80.0-94.0); Platelet Count 223 10^3/uL (130-400); Red Cell Dist. Width 13.9 % (11.5-14.5)
[2025-09-28 07:11] LABS: Blood Urea Nitrogen 9 mg/dl (9-20); Calcium 8.8 mg/dl (8.4-10.2); Carbon Dioxide 25 mmol/L (22-30); Chloride 110 mmol/L (98-107); Estimated Creatinine Clearance 117 ml/min; Glucose 88 mg/dl (70-99); Potassium 3.2 mmol/L (3.5-5.1); Sodium 138 mmol/L (135-145); eGFR > 60.00
[2025-09-28 07:22] VITALS: BP 138/75
[2025-09-28] MEDS: ATROVENT NEBULES INH (07:24)
[2025-09-28] MEDS: LOPRESSOR 50 MG PO ×2 (09:35→20:37)
[2025-09-28] MEDS: ELIQUIS 5 MG PO ×2 (09:35→20:36)
[2025-09-28] MEDS: PROTONIX 40 MG PO (09:35)
[2025-09-28] MEDS: CARDIZEM CD 180 MG PO (09:36)
[2025-09-28] MEDS: MYCOSTATIN ORAL SUSPENSION 5 ML PO (09:36)
[2025-09-28] MEDS: FEOSOL 325 MG PO (09:36)
[2025-09-28] MEDS: COLACE 100 MG PO ×2 (09:36→20:36)
[2025-09-28] MEDS: DESENEX/MITRAZOL/ZEASORB 1 APPLIC TOPICAL (09:36)
[2025-09-28] MEDS: DEPAKOTE (12 HR RELEASE) 250 MG PO (09:42)
[2025-09-28] MEDS: ABILIFY 10 MG PO ×2 (09:42→20:36)
[2025-09-28] MEDS: AUGMENTIN 875 MG/125 MG 1 TABLET PO ×2 (10:44→20:37)
[2025-09-28 10:59] VITALS: BP 145/81
--- NOTE | 2025-09-28 11:16 | PN.CDI ---
CDI
- -
CDI:
Physician Documentation Request
Admit Date: 09/25/25 20:35
Dear Doctor Vikram,
Please review the following and provide your response in the progress notes.
Clinical Indicators:
- RN skin assessments indicate Stage 1 left buttock pressure injury, POA
Physician documentation of the type and location of wounds is required for compliant documentation. Based on the above clinical findings and your assessment, please provide the following in your progress note:
1. Location of the ulcer/wound, including laterality.
2. Type (etiology) of ulcer/wound:
- Diabetic ulcer
- Arterial (ischemic) ulcer
- Traumatic wound
- Pressure (decubitus) ulcer
- Other
Use of terms such as suspected, likely, concern for, or probable (associated with a specific diagnosis that is being evaluated, monitored, or treated as if it exists) are acceptable and can be coded in the inpatient setting, when documented at the
time of discharge.
Thank you,
Emily Santana RN
CDI Specialist
Please use your independent medical judgment in providing your response.
*Source: National Pressure Ulcer Advisory Panel (NPUAP)
[2025-09-28] MEDS: MYCOSTATIN ORAL SUSPENSION PO ×3 (13:03→21:35)
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
[2025-09-28 15:17] VITALS: BP 132/88
--- NOTE | 2025-09-28 16:16 | PTOTSP ---
Speech Therapy Evaluation:
Assessment limited given pt agitation and reduced participation. Pt noted to stare at AUDIT REVIEWER in menacing way for prolonged periods of time. Pt reported dislike for pureed food, however declined advanced trials due to inability to swallow. Pt unable to
elaborate on difficulty and became increasingly agitated as session progressed. He accepted sip of thin liquid x1 without any difficulty. Per chart, WBC WNL, pt afebrile, and on room air.
Recommend:
1. Puree and thin liquids
2. Meds as tolerated
3. General aspiration precautions
4. AUDIT REVIEWER to follow to monitor tolerance of diet and assess candidacy for diet upgrades, pending participation
--- NOTE | 2025-09-28 17:01 | PTCARENOTE ---
patient continues to be off restraints. reports feeling abdominal bloating with good and reports dysphagia with dry foods. c/o upper abd discomfort. PRN Tylenol administered for c/o b/l foot pain with good relief, vss, will continue to monitor.
[2025-09-28] MEDS: FLOMAX 0.4 MG PO (17:47)
--- NOTE | 2025-09-28 18:36 | W.PN.UPDATE ---
Update Note
Progress Note Update
pt seen, chart reviewed, discusesed with nursing. no longer in retraints not as agitated. somewhat sedated. will monitor to see if meds need to be lowered. remains paranoid, but does not complain of spritis spontaneously today (endorses their
presence on direct questioning.)
[2025-09-28 19:30] VITALS: BP 149/80
[2025-09-28] MEDS: ATIVAN 0.5 MG PO (20:36)
[2025-09-28] MEDS: DESENEX/MITRAZOL/ZEASORB TOPICAL (20:38)
[2025-09-28] MEDS: DEPAKOTE (12 HR RELEASE) 500 MG PO (21:36)
[2025-09-28] MEDS: MELATONIN PO (21:36)
[2025-09-28] MEDS: LIPITOR 40 MG PO (21:36)
[2025-09-28] MEDS: SINGULAIR 10 MG PO (21:37)
[2025-09-28] MEDS: SENOKOT 8.6 MG PO (21:37)
[2025-09-29 03:55] VITALS: BP 140/75
[2025-09-29] MEDS: TYLENOL 650 MG PO ×3 (04:01→19:40)
[2025-09-29 06:44] LABS: Hematocrit 36.8 % (39.0-52.0); Hemoglobin 12.0 g/dL (13.0-18.0); Mean Corp Hgb Conc. 32.6 g/dL (33.0-37.0); Mean Corpuscular Volume 92.2 fL (80.0-94.0); Platelet Count 234 10^3/uL (130-400); Red Cell Dist. Width 13.9 % (11.5-14.5)
[2025-09-29 07:08] LABS: Blood Urea Nitrogen 6 mg/dl (9-20); Calcium 8.8 mg/dl (8.4-10.2); Carbon Dioxide 26 mmol/L (22-30); Chloride 109 mmol/L (98-107); Estimated Creatinine Clearance 117 ml/min; Glucose 97 mg/dl (70-99); Potassium 3.1 mmol/L (3.5-5.1); Sodium 141 mmol/L (135-145); eGFR > 60.00
[2025-09-29 08:22] VITALS: BP 144/74
[2025-09-29] MEDS: MYCOSTATIN ORAL SUSPENSION PO ×2 (08:22→22:16)
[2025-09-29] MEDS: CARDIZEM CD 180 MG PO (08:24)
[2025-09-29] MEDS: LOPRESSOR 50 MG PO ×2 (08:24→19:59)
[2025-09-29] MEDS: AUGMENTIN 875 MG/125 MG 1 TABLET PO ×2 (08:25→19:58)
[2025-09-29] MEDS: ABILIFY 10 MG PO ×2 (08:25→22:26)
[2025-09-29] MEDS: DEPAKOTE (12 HR RELEASE) 250 MG PO (08:25)
[2025-09-29] MEDS: PROTONIX 40 MG PO (08:25)
[2025-09-29] MEDS: COLACE 100 MG PO (08:25)
[2025-09-29] MEDS: FEOSOL 325 MG PO (08:26)
[2025-09-29] MEDS: ELIQUIS 5 MG PO ×2 (08:26→19:59)
[2025-09-29] MEDS: SYNTHROID 50 MCG PO (08:26)
[2025-09-29] MEDS: ATIVAN 0.5 MG PO ×2 (08:26→22:26)
[2025-09-29] MEDS: DESENEX/MITRAZOL/ZEASORB TOPICAL ×2 (08:31→19:49)
--- NOTE | 2025-09-29 08:32 | PTCARENOTE ---
Assumed care of patient, patient is screaming/shouting loudly in room. RN went in to assess patient and patient yelled at RN, demanding I give him his morning medications and order him breakfast. Pt is visibly agitated and impatient, asking what
medications he is on, why he is on so many, and for the nurse to hurry up and help him.
RN explained what each medication was and what it was for...patient blankly stared at RN in response, took medications, and threw medication cup across the room once he was done swallowing morning meds.
RN now helping patient order breakfast. PRN Ativan given per order with morning medications.
--- NOTE | 2025-09-29 10:39 | W.PN.UPDATE ---
Update Note
Progress Note Update
patient seen chart reviewed. discussed with nursing, dr masters and dr quijano. the patient resides in [place] here for complaint of issues with catheter. he was found to have a uti. he was also agitated and aggressive. he has hx of bipolar disorder and
has been verbalizing likely delusional material. he has improved significantly w rx of his infection. he was quite pleasant when i spoke with him this am. oriented to [facility] 2024 and [facility] and smiled appropriately when i made a joke.
he knew what he was watching on tv. would cut back the abilify slightly to 5 mg q am and 10 mg q hs. hopefully now that uti has been rx need for abiify at higher dose will diminish. depending on how he progresses would suggest an effort be made to
cut it further in the next weeks as it can causes anticholinergic effects including constipation an issue for him and urinary sx. re constipation would consider whether he needs iron supplements which also cause constipation.depakote has been
increased since coming to . he required on ativan prn earlier this am but no haldol prn. tsh was normal in july. will follow
[2025-09-29 11:19] VITALS: BP 133/74
[2025-09-29] MEDS: MYLICON 80 MG PO (11:35)
--- NOTE | 2025-09-29 12:17 | CM ---
Patient seen at bedside
spoke with Rahel at [facility]
Updated careport
PLAN: Return to [facility] when stable
[facility] Report: [phone], 2nd floor nursing
[facility]
[2025-09-29] MEDS: MYCOSTATIN ORAL SUSPENSION 5 ML PO ×2 (13:30→17:16)
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
--- NOTE | 2025-09-29 14:19 | PTCARENOTE ---
Pt keeps saying his stomach feels 'full'. Pt had a bm this morning. Mylicon tablet given. Pt given tylenol for abd pain. TT sent to hospitalist to ask for another choice of medication for bloating feeling.
[2025-09-29] MEDS: MAALOX 30 ML PO (14:39)
--- NOTE | 2025-09-29 14:41 | PTCARENOTE ---
Mylicon tab discontinued by primary. Pt give maalox by mouth for bloating sensation.
[2025-09-29] MEDS: HALDOL 1 MG IV ×2 (15:39→19:59)
--- NOTE | 2025-09-29 15:50 | PTCARENOTE ---
Pt screaming to give him 'medication'. Pt given PRN dose of IV haldol. (EKG entered for am) Pt continues to scream out and said I did not give it to him. Pt reassured that medication was given as other people in the room with me.
[2025-09-29 17:15] VITALS: BP 155/78
[2025-09-29] MEDS: FLOMAX 0.4 MG PO (17:16)
--- NOTE | 2025-09-29 18:27 | PTCARENOTE ---
Pt able to eat 85% of his dinner but still states his abd is 'full'. Pt also had another large BM.
[2025-09-29] MEDS: COLACE PO (19:48)
[2025-09-29] MEDS: SENOKOT PO (22:16)
[2025-09-29] MEDS: DEPAKOTE (12 HR RELEASE) 500 MG PO (22:26)
[2025-09-29] MEDS: SINGULAIR 10 MG PO (22:27)
[2025-09-29] MEDS: LIPITOR 40 MG PO (22:27)
[2025-09-29] MEDS: MELATONIN 3 MG PO (22:27)
[2025-09-30 03:53] VITALS: BMI 32.4
[2025-09-30] MEDS: TYLENOL 650 MG PO ×2 (04:00→14:32)
[2025-09-30 08:04] VITALS: BP 139/80
[2025-09-30] MEDS: SYNTHROID PO (08:43)
[2025-09-30] MEDS: DEPAKOTE (12 HR RELEASE) 250 MG PO (08:44)
[2025-09-30] MEDS: CARDIZEM CD 180 MG PO (08:44)
[2025-09-30] MEDS: DESENEX/MITRAZOL/ZEASORB TOPICAL ×2 (08:44→20:30)
[2025-09-30] MEDS: FEOSOL 325 MG PO (08:45)
[2025-09-30] MEDS: ABILIFY 5 MG PO (08:45)
[2025-09-30] MEDS: ELIQUIS 5 MG PO ×2 (08:45→20:24)
[2025-09-30] MEDS: LOPRESSOR 50 MG PO ×2 (08:45→20:28)
[2025-09-30] MEDS: PROTONIX 40 MG PO (08:45)
[2025-09-30] MEDS: MYCOSTATIN ORAL SUSPENSION PO ×4 (08:45→21:01)
[2025-09-30] MEDS: COLACE PO ×2 (08:45→20:28)
[2025-09-30] MEDS: AUGMENTIN 875 MG/125 MG 1 TABLET PO ×2 (08:45→20:24)
--- NOTE | 2025-09-30 08:54 | PTCARENOTE ---
Patient acutely agitated, combative, kicking staff, refusing morning EKG. TT to MD to make him aware of acute behavior
[2025-09-30] MEDS: ATIVAN 1 MG IV (10:11)
[2025-09-30] MEDS: NSS (PRESERVATIVE FREE) 0.5 ML IV (10:12)
--- NOTE | 2025-09-30 10:25 | W.PN.UPDATE ---
Update Note
Progress Note Update
patient has been agitated and aggressive today nearly striking nursing. he was gruff and grumbling when i spoke to him but he did make sense. he reported pain in sacral area. i spoke at length to nursing and tried to explain to him why he was in
pain. his skin is excoriated exacerbated by frequent bowel movements and likely by his lack of physical movement. asked wound care to see him with the approval of nursing. also asked PT to assess whether he could at least be in a chair. i did
explain all this to him and we had a discussion about how he might handle his dissatisfaction with care in a more reasonable manner although i empathized with his pain and feeling that he was not feeling better. have increase depakote to total 1000
mg daily will get level on saturday. he is taking meds regularly. also added ativan standing order. i am reluctant to inc abilify as it can cause akathisia and this could exacerbate his irritability. will follow
[2025-09-30] MEDS: DEPAKOTE (12 HR RELEASE) PO (11:48)
[2025-09-30] MEDS: ATIVAN 0.5 MG IV (12:10)
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
--- NOTE | 2025-09-30 12:35 | PTCARENOTE ---
Patient became acutely irate again, screaming incredibly loud, calling nursing staff obscene and inappropriate names, launching body forward in bed. Code purple was initiated by one staff member. PRN Ativan given per order for agitation. Security
and nursing sales representative supervisor at bedside.
[2025-09-30] MEDS: FLOMAX 0.4 MG PO (17:00)
[2025-09-30] MEDS: ATIVAN 0.5 MG PO ×2 (17:00→21:00)
[2025-09-30] MEDS: DEPAKOTE (12 HR RELEASE) 500 MG PO (21:00)
[2025-09-30] MEDS: SINGULAIR 10 MG PO (21:00)
[2025-09-30] MEDS: MELATONIN 3 MG PO (21:00)
[2025-09-30] MEDS: LIPITOR 40 MG PO (21:00)
[2025-09-30] MEDS: ABILIFY 10 MG PO (21:01)
[2025-09-30] MEDS: SENOKOT PO (21:01)
[2025-10-01] MEDS: SYNTHROID 50 MCG PO (06:10)
[2025-10-01] MEDS: ATIVAN 0.5 MG IV ×2 (07:29→17:32)
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
[2025-10-01] MEDS: ATIVAN 0.5 MG PO (07:54)
[2025-10-01] MEDS: DEPAKOTE (12 HR RELEASE) 250 MG PO ×2 (07:54→11:18)
[2025-10-01] MEDS: LOPRESSOR 50 MG PO (07:54)
[2025-10-01] MEDS: ABILIFY 5 MG PO (07:54)
[2025-10-01] MEDS: PROTONIX 40 MG PO (07:54)
[2025-10-01] MEDS: COLACE 100 MG PO (07:54)
[2025-10-01] MEDS: AUGMENTIN 875 MG/125 MG 1 TABLET PO (07:54)
[2025-10-01] MEDS: MYCOSTATIN ORAL SUSPENSION 5 ML PO (07:54)
[2025-10-01] MEDS: CARDIZEM CD 180 MG PO (07:54)
[2025-10-01] MEDS: FEOSOL 325 MG PO (07:55)
[2025-10-01] MEDS: ELIQUIS 5 MG PO (07:55)
[2025-10-01] MEDS: DESENEX/MITRAZOL/ZEASORB TOPICAL (07:55)
--- NOTE | 2025-10-01 10:56 | PTOTSP ---
Orders received, chart reviewed.
Patient continues to be inappropriate to participate in skilled therapy 2/2 ongoing agitation and aggression towards staff. Patient is bedbound at baseline as per chart review.
Discussed with RN; will sign off at this time.
[2025-10-01] MEDS: MYCOSTATIN ORAL SUSPENSION PO ×2 (12:28→16:32)
--- NOTE | 2025-10-01 13:05 | W.PN.UPDATE ---
Update Note
Progress Note Update
patient seen chart reviewed. discussed with nursing and with dr quijano. the patient continues to be agitated and aggressive. his verbal tirades continue. staff has tried to be empathic given his pain. on occasion he has acknowledged that his
response has been inappropriate and unlikely to help him in any way. he complained of 'shit' all over his 'backside'which is indeed reality but an attempt had been made to clean him a few minutes earlier but his threats caused it to be interrupted.
one mg stat ativan ordered and tid dose increased to one mg . abilify inc to total 20 mg daily. depakote level ordered for oct 03 but inc dose now to 500 mg tid.
[2025-10-01] MEDS: NSS (PRESERVATIVE FREE) 0.5 ML IV (13:22)
[2025-10-01] MEDS: ATIVAN 1 MG IV (13:22)
--- NOTE | 2025-10-01 14:08 | W.DCSUMMARY ---
Discharge Summary
Discharge Data
Date of Admission: 09/25/25
Date of Discharge: 10/01/25
-
Pending Results: No
Hospital Course
Primary diagnosis:
Acute agitation suspected primarily secondary to his psychiatric disorder
Catheter associated UTI
Pancreatic ovoid lesion on the CT done on the prior visits
Secondary diagnosis:
History of bipolar disorder
Major depressive disorder status post ECT
History of hospitalization for suicidal ideation
Tardive dyskinesia
Recent lithium toxicity
History of Annabelle syndrome
History of constipation
Paroxysmal atrial fibrillation
Hypothyroidism
Prostatic hypertension
Hospital course:
Patient from [facility] who reported that his catheter had not been draining appropriately, pulled his catheter bag loose on 09/25/25 from the end of his Zamorano catheter, which prompted referral to ER. In the ER, he was confused and agitated
requiring Haldol and IV Ativan. According to longterm staff, patient has pulled out his Zamorano catheter in the past. Urine was thick and cloudy in ER, therefore Zamorano catheter was replaced. Patient was noted to also be tachycardic and
diaphoretic. Staff at longterm states he was more confused than usual.
He had no leukocytosis or fever but his urinalysis positive and culture was growing Enterococcus faecalis and Klebsiella pneumonia. Antibiotics were switched to Augmentin and and finish 5 days of treatment.
He had recurrent issues with agitation requiring psychiatry evaluation. He was recently admitted for lithium toxicity which was discontinued. Psychiatry reviewed his medication and valproic acid dose was increased as the levels were
subtherapeutic. Abilify was also introduced. There was requiring Ativan and Haldol during the hospital stay. Initially required restraints but was able to manage with medication after that.
Today he was angry again because he was not cleaned. He has issues with loose stools. He is on bowel regimen for constipation and recent Annabelle syndrome. Afebrile. Hemodynamically stable. No respiratory distress. On room air.Abdomen soft.
Chest was clear.
Deemed medically stable for discharge to longterm today.
Consultants on board:
Psychiatry-Reji Easley
Discharge Plan
-
Patient Disposition: Alf/SNF
Diet: Other diet
Additional Diets: IDDSI Pureed thin liquids
Activity: As tolerated
Driving Restrictions: No driving
Bathing Restrictions: None
Referrals:
Dayanna Philip MD [Family Provider] - in less than 1 week
Prescriptions:
New
aripiprazole 10 mg Tablet
10 mg PO HS Qty: 1 0RF
aripiprazole 10 mg Tablet
10 mg PO DAILY Qty: 1 0RF
divalproex 500 mg Tablet,Delayed Release (Dr/Ec)
500 mg PO TID Qty: 1 0RF
Continued
atorvastatin [Lipitor] 40 mg Tablet
40 mg PO HS
sennosides [senna] 8.6 mg Tablet
8.6 mg PO HS
acetaminophen [Tylenol] 325 mg Tablet
650 mg PO Q6HPRN PRN (Reason: MILD PAIN/fever)
melatonin 3 mg Tablet
3 mg PO HS
tamsulosin [Flomax] 0.4 mg Capsule
0.4 mg PO QPM
levothyroxine [Synthroid] 50 mcg Tablet
50 mcg PO DAILY
bisacodyl [Dulcolax (bisacodyl)] 10 mg Suppository
10 mg VA DAILYPRN PRN (Reason: IF NO BM AFTR MOM)
pantoprazole [Protonix] 40 mg Tablet,Delayed Release (Dr/Ec)
40 mg PO DAILY
ferrous sulfate 325 mg (65 mg iron) Tablet
325 mg PO DAILY
docusate sodium [Colace] 100 mg Capsule
100 mg PO BID
montelukast [Singulair] 10 mg Tablet
10 mg PO HS
ipratropium bromide 17 mcg/actuation Hfa Aerosol Inhaler
2 puff INHALATION BID
magnesium hydroxide [Milk of Magnesia] 400 mg/5 mL Suspension
2,400 mg PO [id number] PRN (Reason: CONSTIPATION)
Fleet Enema 19-7 gram/118 mL Enema
118 ml VA DAILYPRN PRN (Reason: IF NO BM AFTR DULCOLAX)
Eliquis 5 mg Tablet
5 mg PO BID Qty: 60 0RF
diltiazem HCl 180 mg Capsule,Extended Release 24hr
180 mg PO DAILY Qty: 30 0RF
metoprolol tartrate 50 mg Tablet
50 mg PO BID Qty: 60 0RF
miconazole nitrate [Miconazorb AF] 2 % Powder
1 applic topical BID Qty: 85 0RF
venlafaxine [Effexor XR] 75 mg Capsule,Extended Release 24hr
75 mg PO DAILY
loperamide [Imodium A-D] 2 mg Tablet
2 mg PO Q8H PRN (Reason: diarrhea)
lorazepam [Ativan] 0.5 mg Tablet
0.5 mg PO Q12H PRN (Reason: restlessness)
Discontinued
nystatin 100,000 unit/mL Suspension
5 ml PO QID Qty: 60 0RF
divalproex 250 mg Tablet,Delayed Release (Dr/Ec)
250 mg PO BID Qty: 60 0RF
Discharge Orders:
Discharge Patient (As Directed); Ordered 10/01/25
Ordered By: Taye Sue
Discharge Date and Time
Print Language: [id number]
--- NOTE | 2025-10-01 14:20 | CM ---
Addendum entered by Rayne Blanton 10/01/25 16:09:
called and spoke with patient sister Jojo & updated.
IMM explained & placed in chart
Original Note:
patient discharge today to [facility]
spoke with Rahel at [facility] & updated
PLAN: Return to [facility] Report: [phone], 2nd floor nursing
[facility]
[2025-10-01] MEDS: ATIVAN 1 MG PO (16:30)
[2025-10-01] MEDS: DEPAKOTE (12 HR RELEASE) 500 MG PO (16:30)
[2025-10-01] MEDS: FLOMAX 0.4 MG PO (16:31)
== END 2025-10-01 18:54 | DRG 699 ==
LOC: 3 WEST ACU 20:35
PROVIDERS: Hospitalist; ADMITTING PHYSICIAN Internal Medicine; ATTENDING PHYSICIAN Internal Medicine; CONSULT PHYSICIAN Psychiatry & Neurology Psychiatry; EMERGENCY PHYSICIAN Emergency Medicine; FAMILY PHYSICIAN Nurse Practitioner Family
DX: T83.518A Infection and inflammatory reaction due to other urinary catheter, initial encounter (principal); F03.918 Unspecified dementia, unspecified severity, with other behavioral disturbance; N39.0 Urinary tract infection, site not specified; F31.30 Bipolar disorder, current episode depressed, mild or moderate severity, unspecified; F03.93 Unspecified dementia, unspecified severity, with mood disturbance; F03.94 Unspecified dementia, unspecified severity, with anxiety; F05 Delirium due to known physiological condition; Y84.6 Urinary catheterization as the cause of abnormal reaction of the patient, or of later complication, without mention of misadventure at the time of the procedure; G24.01 Drug induced subacute dyskinesia; I48.0 Paroxysmal atrial fibrillation; E03.9 Hypothyroidism, unspecified; N40.0 Benign prostatic hyperplasia without lower urinary tract symptoms; E53.8 Deficiency of other specified B group vitamins; E55.9 Vitamin D deficiency, unspecified; K21.9 Gastro-esophageal reflux disease without esophagitis; I50.9 Heart failure, unspecified; I11.0 Hypertensive heart disease with heart failure; Z85.46 Personal history of malignant neoplasm of prostate; F11.11 Opioid abuse, in remission; F10.11 Alcohol abuse, in remission; J45.909 Unspecified asthma, uncomplicated; G47.00 Insomnia, unspecified; G89.29 Other chronic pain; K59.09 Other constipation; G47.33 Obstructive sleep apnea (adult) (pediatric); E61.1 Iron deficiency; Z79.890 Hormone replacement therapy; Z79.899 Other long term (current) drug therapy; Z87.440 Personal history of urinary (tract) infections; Z79.01 Long term (current) use of anticoagulants; B95.2 Enterococcus as the cause of diseases classified elsewhere; E78.00 Pure hypercholesterolemia, unspecified; L89.321 Pressure ulcer of left buttock, stage 1; Z11.52 Encounter for screening for COVID-19
CPT/HCPCS: 51702; 80048; 81003; 81015; 83605; 83690; 85025; 85027; 87040; 87070; 87077; 87086; 87186; 87502; 87811; 92610; 93005; 94640; 96361; 96374; 96375; 99285